=== PATIENT | female | born 1965 | race Caucasian/White ===

== ENCOUNTER 2020-02-06 11:08 | Outpatient (CLI) | payer BC, SELFPAY ==
--- NOTE | ~2020-02-06 | XR_ITS ---
XR lumbar spine min 4V 02/06/2020 11:41 Indication: Low back pain and radiculopathy Procedure: 5 views of the lumbar spine Comparison: No prior studies for comparison. Findings: There is disc narrowing at all lumbar levels, most advanced at L5-S1. There are ventral ost eophytes at multiple levels. There is mild facet hypertrophy at L2-3 through L5-S1. No evidence for s pondylolisthesis. There is a calcification lateral to L4 measuring or millimeters. Cannot exclude ure teral stone. Impression: 1: Mild lumbar spondylosis. 2: Possible left ureteral stone. Correlate clinically. Reviewed, dictated and finalized at location A. Impression: 1: Mild lumbar spondylosis. 2: Possible left ureteral stone. Correlate clinically.
== END 2020-02-06 11:09 | disposition home or self-care (01) ==
LOC: ANHIMG 11:15
PROVIDERS: PCP Family Medicine; Visit Provider Physician Assistant
DX: M47.26 Other spondylosis with radiculopathy, lumbar region (principal)
CPT/HCPCS: 72110

== ENCOUNTER 2020-02-20 19:54 | Emergency (ER) | payer BC, SELFPAY ==
[2020-02-20 19:57] VITALS: BP 151/91; PULSE 82; RESP 20; TEMP 36.8; O2SAT 97
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
[2020-02-20 21:35] VITALS: BP 124/60; PULSE 80; RESP 20; TEMP 36.7; O2SAT 98
== END 2020-02-20 21:36 | disposition home or self-care (01) ==
PROVIDERS: Emergency Provider Emergency Medicine; PCP Family Medicine
DX: S61.011A Laceration without foreign body of right thumb without damage to nail, initial encounter (principal); X99.1XXA Assault by knife, initial encounter
CPT/HCPCS: 12001; 99282

== ENCOUNTER → 2020-08-01 15:00 | Outpatient (CLI) | payer BC, SELFPAY ==
--- NOTE | ~2020-08-01 | MM_ITS ---
EXAMINATION: MM screening [facility] BI w patrick HISTORY: Screening mammogram TECHNIQUE: Craniocaudal and mediolateral oblique 3-D tomosynthesis images were obtained and synthetic 2-D images were generated. CAD analysis was submitted and interpreted. COMPARISON: 01/19/2019, 12/29/2017, 06/30/2011 BREAST PARENCHYMAL COMPOSITION: There are scattered areas of fibroglandular density. FINDINGS: There is no evidence of suspicious mass, calcification, or architectural distortion to sugg est malignancy in either breast. There has been no suspicious interval change. IMPRESSION: 1. No mammographic evidence of malignancy. 2. Recommend routine screening mammography in one year. BI-RADS Category 1: Negative Reviewed, dictated and finalized at location A. ER CARE THERAPIST
== END ==
PROVIDERS: PCP Family Medicine; Visit Provider Nurse Practitioner Obstetrics & Gynecology
DX: Z12.31 Encounter for screening mammogram for malignant neoplasm of breast (principal)
CPT/HCPCS: 77063; 77067

== ENCOUNTER → 2021-05-22 02:36 | Outpatient (CLI) | payer BC, SELFPAY ==
[2021-05-22 18:57] LABS: SARS-CoV-2 RNA PCR Negative
== END ==
PROVIDERS: PCP Family Medicine; Visit Provider Family Medicine
DX: R05 Cough (principal); R51.9 Headache, unspecified; R68.83 Chills (without fever); Z20.822 Contact with and (suspected) exposure to COVID-19
CPT/HCPCS: C9803; U0003; U0005

== ENCOUNTER 2021-08-14 17:28 | Emergency (ER) | payer BC, SELFPAY ==
[2021-08-14 17:33] VITALS: BP 122/73; PULSE 106; RESP 18; TEMP 38.2; O2SAT 95
[2021-08-14 21:49] VITALS: BP 122/73; PULSE 89; O2SAT 98
--- NOTE | 2021-08-14 22:56 | ED.NAVMDI ---
HPI - Nausea/Vomiting/Diarrhea General Chief complaint: Nausea/Vomiting/Diarrhea Stated complaint: Vomiting Time Seen by Provider: 08/14/21 22:44 Source: patient History of Present Illness HPI Narrative: Patient presents with couple months of nausea and vomiting. Reports her symptoms are intermittent and are triggered by stress certain foul smells or foul tasting food. Today at work she had an episode of emesis and was instructed to be evaluated by work as she might be contagious and work did not want her to return until she was cleared by physician. Patient has an appointment next week with her primary care doctor to be evaluated. She is not been evaluated for this prior to today. Right now she denies any symptoms. Her symptoms not associated with abdominal pain. She denies any diarrhea. She denies any fevers, cough, congestion Related Data Home Medications Medication Instructions Recorded Confirmed estradiol 1 mg tablet 1 mg PO DAILY 07/17/19 02/02/21 acetaminophen 325 mg tablet 325 mg PO Q6H PRN 01/23/20 02/02/21 Allergies Allergy/AdvReac Type Severity Reaction Status Date / Time No Known Allergies Allergy Verified 08/14/21 23:26 Review of Systems Review of Systems: CONSTITUTIONAL: Denies fever, chills, or sweats. EYES: Denies visual changes, redness, or discharge. ENT: Denies rhinorrhea, congestion, sore throat, or otalgia. CARDIOVASCULAR: Denies chest pain, palpitations, or edema. RESPIRATORY: Denies cough or dyspnea. GASTROINTESTINAL: Denies abdominal pain, or diarrhea. GENITOURINARY: Denies dysuria or hematuria. SKIN: Denies rash or itching. MUSCULOSKELETAL: Denies back pain, joint pain, or myalgia. NEUROLOGIC: Denies headache, numbness, dizziness, or weakness. PSYCHIATRIC: Denies anxiety or depression. All systems reviewed & are unremarkable except as noted in HPI and below PMFSH Past Medical History Medical History Bladder prolapse 2004 Surgical History Surgical History H/O: hysterectomy Total 2001 History of bladder surgery History of tonsillectomy Social History Social History Smoking status: Never smoker Alcohol intake: current Gender identity (if verbalized by the patient): Female Exam Narrative: GENERAL: Well-appearing, well-nourished, and in no acute distress. HEAD: Normocephalic, atraumatic. EYES: PERRLA and EOMI. ENT: Nares clear, no rhinorrhea or epistaxis. Mucous membranes moist. NECK: Supple. No masses. No JVD ABDOMEN: Soft, nontender, nondistended, normal active bowel sounds. EXTREMITIES: Normal range of motion. No edema. SKIN: Warm, dry, no rash. NEURO: No focal deficits. Alert and oriented x3. PSYCH: Normal mood and affect. Course Vital Signs Vital signs: Vital Signs Temperature 38.2 C H 08/14/21 17:33 Pulse Rate 106 H 08/14/21 17:33 Respiratory Rate 18 08/14/21 17:33 Blood Pressure 122/73 08/14/21 17:33 Pulse Oximetry 95 08/14/21 17:33 Temperature 38.2 C H 08/14/21 17:33 Pulse Rate 92 08/14/21 23:24 Respiratory Rate 16 08/14/21 23:24 Blood Pressure 129/74 08/14/21 23:24 Pulse Oximetry 99 08/14/21 23:24 MDM - Nausea/Vomiting/Diarrhea MDM Narrative Medical decision making narrative: H&P as above, vss, pt looks clinically well, exam with nonacute abdomen, labs/img considered and offered to the patient however given symptoms are triggered by foul-smelling tasting food labs and imaging are likely to have any clinical impact at this time. Symptomatic relief available as needed, however patient was asymptomatic while in the ER, Suspect patient has food aversions, dns cholecystitis, pancreatitis, bowel obstruction, appendicitis, severe dehydration, severe sepsis. plan to tx/monitor as op w/ pcm f/u findings/plan discussed with pt, pt agree/comfortable with plan, return
[2021-08-14 23:24] VITALS: BP 129/74; PULSE 92; RESP 16; O2SAT 99
== END 2021-08-14 23:29 | disposition home or self-care (01) ==
PROVIDERS: Emergency Provider Emergency Medicine; PCP Family Medicine
DX: R11.2 Nausea with vomiting, unspecified (principal); Z90.710 Acquired absence of both cervix and uterus; Z90.89 Acquired absence of other organs
CPT/HCPCS: 99283

== ENCOUNTER → 2021-09-25 12:44 | Outpatient (CLI) | payer BC, SELFPAY ==
--- NOTE | ~2021-09-25 | MM_ITS ---
EXAMINATION: MM screening [facility] BI w patrick HISTORY: Screening TECHNIQUE: Craniocaudal and mediolateral oblique 3-D tomosynthesis images were obtained and synthetic 2-D images were generated. CAD analysis was submitted and interpreted. COMPARISON: Comparison to multiple prior studies sequentially, with oldest reviewed study dated 12/29. BREAST PARENCHYMAL COMPOSITION: There are scattered areas of fibroglandular density. FINDINGS: There is no evidence of suspicious mass, calcification, or architectural distortion to sugg est malignancy in either breast. There has been no suspicious interval change. IMPRESSION: 1. No mammographic evidence of malignancy. 2. Recommend routine screening mammography in one year. BI-RADS Category 1: Negative Reviewed, dictated and finalized at location A. [facility]
== END ==
PROVIDERS: PCP Family Medicine; Visit Provider Family Medicine
DX: Z12.31 Encounter for screening mammogram for malignant neoplasm of breast (principal)
CPT/HCPCS: 77063; 77067

== ENCOUNTER 2022-12-22 18:13 | Outpatient (NON) | payer BC, SELFPAY | END 2022-12-22 18:14 | disposition home or self-care (01) | LOC: ANHLAB 18:15 | PROVIDERS: PCP Family Medicine; Visit Provider Nurse Practitioner | DX: R39.9 Unspecified symptoms and signs involving the genitourinary system (principal) | CPT/HCPCS: 87077; 87086; 87186 ==

== ENCOUNTER 2022-12-30 06:50 | Inpatient (IN) | payer BC, SELFPAY ==
[2022-12-30] VITALS (27 sets, daily range): BP systolic 89–147; BP diastolic 52–99; PULSE 54–88; RESP 12–18; TEMP 36.2–37; O2SAT 95–100; BMI 29.9
--- NOTE | ~2022-12-30 | XR_ITS ---
EXAMINATION: XR stent kub - surgery DATE: 12/30/2022 13:01 INDICATION: Internal ureteral stent placement. Possible stones. TECHNIQUE: Fluoroscopic images from a bilateral internal ureteral stent placement are submitted for zak fox. 43.6 of fluoroscopy time. FINDINGS: There are bilateral double-J internal ureteral stent projecting in expected position, with proximal C ope loop at the level of the renal pelvis and distal loops are not included on the post deployment im age.. IMPRESSION: 1. Bilateral internal ureteral stent placement. Please refer to real-time procedural findings for d etagardenia. Reviewed, dictated and finalized at location A. IMPRESSION: 1. Bilateral internal ureteral stent placement. Please refer to real-time pro cedural findings for details.
--- NOTE | ~2022-12-30 | XR_ITS ---
XR abdomen/kub 1V 12/31/2022 09:13 Indication: Surgical planning. Renal stones. Procedure: KUB Comparison: CT dated 12/31/2019 Findings: There are bilateral internal ureteral stents in expected position. There is a stone in the right renal pelvis. There are multiple distal left ureteral stones. No acute osseous abnormality. Non obstructive bowel gas pattern. There is osteoarthritis of the hips. Impression: 1: Right nephrolithiasis. 2: Multiple distal left ureteral stones. Reviewed, dictated and finalized at location A. Impression: 1: Right nephrolithiasis. 2: Multiple distal left ureteral stones.
--- NOTE | ~2022-12-30 | CT_ITS ---
CT of the Abdomen and Pelvis: Indication: Abdominal pain Technique: 2.5 mm axial scans were obtained through the abdomen and pelvis following intravenous adm inistration of 100 cc of Omnipaque 350. Dose reduction technique was used on this scan by utilizing a utomated exposure control and iterative reconstruction technique. The dose-length product (DLP) was 4 55.14 mGy-cm. Findings: Scans through the lung bases are unremarkable. There is a 1.5 x 0.8 cm stone in the distal left ureter, resulting in moderate to severe left hydrour eteronephrosis. There is a 1.2 x 0.8 cm stone at the right renal pelvis without definite jose hydron ephrosis. The liver, spleen, pancreas, gallbladder, and adrenal glands are within normal limits. No evidence o f aortic aneurysm. No lymphadenopathy. There is wall thickening and pericolic inflammatory change at the distal sigmoid colon. There is an a ssociated 4.1 x 3.4 cm collection with air-fluid level (axial image 153), consistent with abscess, po ssibly intramural abscess. No free air evident otherwise. No bowel obstruction. Images through the pelvis were performed. Urinary bladder unremarkable. Patient is post hysterectomy. Impression: Acute sigmoid diverticulitis with 4.1 x 3.4 cm abscess adjacent to the distal sigmoid colon. 1.5 x 0.8 cm distal left ureteral stone with moderate to severe left hydroureteronephrosis. 1.2 x 0.8 cm stone at the right renal pelvis, without definite hydronephrosis. Reviewed, dictated and finalized at [facility]. Impression: Acute sigmoid diverticulitis with 4.1 x 3.4 cm abscess adjacent to the distal s igmoid colon. 1.5 x 0.8 cm distal left ureteral stone with moderate to severe left hydrourete ronephrosis. 1.2 x 0.8 cm stone at the right renal pelvis, without definite hydronephrosis.
[2022-12-30 07:19] LABS: Basophils Absolute Auto 0.1 K/mm3 (0.0-0.1); Basophils Percent Auto 0.5 % (0.2-1.2); Eosinophils Absolute Auto 0.2 K/mm3 (0-0.3); Eosinophils Percent Auto 1.8 % (0-4.4); Hematocrit 43.9 % (37.0-47.0); Hemoglobin 14.3 g/dL (12.0-15.0); Immature Granulocyte Absolute 0.03 K/mm3 (0.00-0.031); Immature Granulocyte Percent A 0.3 % (0-0.5); Lymphocytes Absolute Auto 1.33 K/mm3 (0.9-3.2); Lymphocytes Percent Auto 11.8 % (18.3-44.2); Mean Corpuscular HGB Conc 32.6 g/dl (32-36); Mean Corpuscular Hemoglobin 27.4 pg (26-34); Mean Corpuscular Volume 84.3 fl (80-100); Mean Platelet Volume 9.3 fl (7.4-10.4); Monocytes Absolute Auto 1.1 K/mm3 (0.1-0.6); Monocytes Percent Auto 9.9 % (2.6-8.5); Neutrophils Absolute Auto 8.6 K/mm3 (1.3-6.7); Neutrophils Percent Auto 75.7 % (45.5-73.1); Platelet Count Result 428 k/mm3 (150-375); Red Blood Count 5.21 M/mm3 (4.2-5.4); Red Cell Distribution Width 12.9 % (11.5-14.5); White Blood Count 11.3 K/mm3 (4.5-10.0)
[2022-12-30 07:29] LABS: Alanine Aminotransferase 214 U/L (6-35); Albumin Level 4.5 g/dL (3.5-5.1); Alkaline Phosphatase 167 U/L (38-126); Anion Gap 4 mmol/L (8-16); Aspartate Amino Transferase 149 U/L (14-36); Bilirubin,Total 0.8 mg/dL (0.2-1.3); Blood Urea Nitrogen 14 mg/dL (7-17); Calcium 10.9 mg/dL (8.4-10.2); Carbon Dioxide 29 mmol/L (22-30); Chloride 104 mmol/L (98-107); Estimated CRCL calculation 59 ml/min; Estimated Glomerular Filt Rate > 60; Glucose 114 mg/dL (65-110); Lipase 146 U/L (23-300); Potassium 4.5 mmol/L (3.4-5.0); Sodium 137 mmol/L (137-145)
[2022-12-30] MEDS: ONDANSETRON INJ 4 MG/2 ML VIAL IV PUSH (08:06)
[2022-12-30] MEDS: MORPHINE SULFATE (*CRX) 4 MG/ML INJ IV PUSH (08:06)
[2022-12-30] MEDS: SODIUM CHLORIDE 0.9% IV 1,000 ML 999 ML IV CONT (08:06)
[2022-12-30 09:07] LABS: Appearance Urine Cloudy (Clear); Bacteria Urine None Seen /hpf; Bilirubin Urine Negative (Negative); Blood Urine 3+ (Negative); Color Urine Yellow (Yellow); Glucose Urine UA Negative (Negative); Ketones Urine 1+ mg/dL (Negative); Leukocyte Esterase Ur 2+ LEU/UL (Negative); Need Manual Microscopic Reviewed; Nitrate Urine Negative (Negative); Non Pathogenic Casts 0-2; Protein Urine 1+ mg/dL (Negative); RBC Urine >100 /hpf (0-2); Specific Grav Ur 1.053 (1.001-1.035); Squamous Epithelial Cell Urine Occasional /hpf (Few); Urobilinogen Urine 0.2 mg/dL (<2.0); WBC Urine >100 /hpf
--- NOTE | 2022-12-30 09:07 | ED.ABDPAIN ---
HPI - Abdominal Pain General Chief Complaint: Abdominal Pain Stated Complaint: abd pain/kidney infection Time Seen by Provider: 12/30/22 07:01 History of Present Illness HPI narrative: Patient is a 57-year-old female who presents ER with concerns for UTI. Was diagnosed with UTI 1 week ago when she has burning urination frequent urination. She was started on Macrobid but symptoms persisted. PCP added on Augmentin a couple days ago. Patient is still having lower abdominal pain and urinary frequency. She is also developed some diarrhea. Tenderness worse with movement. No fevers or chills or sweats. No chest pain or chest pressure. No history of kidney stone. Related Data Allergies Allergy/AdvReac Type Severity Reaction Status Date / Time No Known Allergies Allergy Verified 12/30/22 11:36 Review of Systems Review of Systems: All systems reviewed & are unremarkable except as noted in HPI and below Constitutional: Constitutional: Denies chills, Reports fatigue and Denies fever(s) Cardiovascular: Cardiovascular: Denies chest pain, Denies rapid heart rate and Denies radiating jaw, neck or arm pain Respiratory: Respiratory: Denies chest congestion, Denies cough and Denies dyspnea Gastrointestinal: Gastrointestinal: Reports abdominal pain, Reports diarrhea, Reports nausea and Reports vomiting Genitourinary: Genitourinary: Reports nocturia and Reports dysuria PMFSH Past Medical History Medical History Bladder prolapse 2005 COVID-19 (~04/2020) Hepatitis C antibody test negative (12/06/07) Surgical History Surgical History H/O: hysterectomy ANDREEA-BSO 2001 History of bladder surgery History of tonsillectomy Family History Family History Father Kidney stones Social History Social History Smoking status: Never smoker Alcohol intake: current Drinks per week: 1 Substance use: never Lack of Transportation: No Lack of Food: Never True Current Housing: I Have Housing Concerned About Future Housing: No Difficulty Paying Gas/Electric Bills: No Difficulty Paying for Meds: No Currently Unemployed: No Education: High School Diploma/GED Difficulty w/ Childcare or Family Care: No Gender identity (if verbalized by the patient): Female Spiritual care concerns: No Exam Narrative: GENERAL: Uncomfortable-appearing, well-nourished, and in no acute distress. HEAD: Normocephalic, atraumatic. EYES: PERRL and EOMI. ENT: Mucous membranes moist. CHEST: Clear to auscultation. No respiratory distress. HEART: Regular rate and rhythm. Normal peripheral pulses. ABDOMEN: Soft, tender to palpation left lower quadrant with guarding, nondistended, normal active bowel sounds. EXTREMITIES: Normal range of motion. No edema. SKIN: Warm, dry, no rash. NEURO: Alert and oriented x3. PSYCH: Normal mood and affect. Course Course Emergency Course: Patient informed of results. Both urology and and general surgery have been consulted. Patient will have to go to the OR for stent. Patient is aware of treatment plan. She is more comfortable at this time. She will be started on IV Zosyn. Vital Signs Vital signs: Vital Signs Temperature 98.4 F 12/30/22 06:58 Pulse Rate 88 12/30/22 06:58 Respiratory Rate 14 12/30/22 06:58 Blood Pressure 145/99 H 12/30/22 06:58 Pulse Oximetry 95 12/30/22 06:58 Oxygen Delivery Room Air 12/30/22 06:58 Temperature 97.9 F 12/30/22 16:00 Pulse Rate 59 L 12/30/22 16:00 Respiratory Rate 16 12/30/22 16:00 Blood Pressure 140/68 12/30/22 16:00 Pulse Oximetry 100 12/30/22 16:00 Oxygen Delivery Room Air 12/30/22 15:00 Oxygen Flow Rate 6 12/30/22 13:25 MDM - Abdominal Pain Lab Data 12/30/22 07:03 12/12
[2022-12-30 09:08] LABS: Add Urine Microscopic? YES
[2022-12-30] MEDS: PIPERACILLN/TAZ 3.375GM/NS50ML 3.375 GM/50 ML BAG IVPB ×3 (09:14→20:52)
--- NOTE | 2022-12-30 10:34 | WPDURCON ---
Assessment and Plan Assessment and plan (1) Left ureteral stone: Code(s): N20.1 - Calculus of ureter Status: Acute Assessment and Plan: Obtain Consent: Cystoscopy, bilateral ureteral stent placement, bilateral retrograde pyelogram. Keep NPO. Plan to go to the OR today with Dr. Gutierrez. Once infection has resolved, she will need a Cystoscopy left ureteroscopy with stone extraction, stent exchange left, left retrograde pyelogram, possible holmium laser, right ESWL, which we will plan in a few weeks. (2) Right renal stone: Code(s): N20.0 - Calculus of kidney Status: Acute Assessment and Plan: Will plan to get a KUB s/p stent placement today to ensure stone is visible for presumed ESWL. (3) UTI (urinary tract infection): Code(s): N39.0 - Urinary tract infection, site not specified Status: Acute Assessment and Plan: Continue Zosyn, tailor antibiotics to repeat culture results. Urology Consult Note HPI Date Seen: 12/30/22 Time Seen: 11:59 Requesting Physician: Porter Gutierrez MD Primary Care Provider: Shari Stein DO Consult Narrative Reason for consult: Bilateral Stones, UTI Narrative: Ignacia Núñez is a 57 year old female who presented to the ER for worsening flank and abdominal pain that was accompanied by nausea and vomiting. She states she was treated for a UTI growing E-Coli on the culture from 12/22/22 by her PCP a week ago but her infection wouldn't resolve. She also c/o dysuria, frequency, urgency to urinate and hematuria. Her UA is suggestive of a UTI, urine culture is pending, however she is currently on culture sensitive Zosyn from 12/22/22. She had a CT scan in the ER today showing Acute sigmoid diverticulitis with 4.1 x 3.4 cm abscess adjacent to the distal sigmoid colon, a 1.5 x 0.8 cm distal left ureteral stone with moderate to severe left hydroureteronephrosis, and a 1.2 x 0.8 cm stone at the right renal pelvis, without definite hydronephrosis. She states she doesn't have a previous history of kidney stones. She has a WBC of 11.3, is afebrile and has a creatinine of 0.90. Review of Systems Cardiovascular: Cardiovascular: Denies chest pain Respiratory: Respiratory: Reports no additional respiratory complaints Gastrointestinal: Gastrointestinal: Reports abdominal pain, Reports nausea and Reports vomiting Genitourinary: Genitourinary: Reports hematuria, Reports nocturia, Reports dysuria, Denies pelvic pain, Reports flank pain, Denies urinary incontinence and Reports urinary urgency PMFSH Past Medical History Medical History Bladder prolapse 2005 COVID-19 (~04/2020) Hepatitis C antibody test negative (12/06/07) Surgical History Surgical History H/O: hysterectomy ANDREEA-BSO 2001 History of bladder surgery History of tonsillectomy Family History Family History Father Kidney stones Social History Social History Smoking status: Unknown if ever smoked Alcohol intake: current Lack of Transportation: No Lack of Food: Never True Current Housing: I Have Housing Concerned About Future Housing: No Difficulty Paying Gas/Electric Bills: No Difficulty Paying for Meds: No Currently Unemployed: No Education: High School Diploma/GED Difficulty w/ Childcare or Family Care: No Gender identity (if verbalized by the patient): Female Meds Home Medications and Allergies Home Medications Medication Instructions Recorded Confirmed Type tramadol 50 mg tablet 50 mg PO Q8H PRN pain #12 tabs 12/16/22 12/22/22 Rx amoxicillin 500 mg-potassium 1 tablet PO Q12H #14 tabs 12/27/22 Rx clavulanate 125 mg tablet Allergies Allergy/AdvReac Type Severity Reaction Status Date / Time No Known Aller
--- NOTE | 2022-12-30 10:39 | PM.CNGS ---
Assessment and Plan Assessment and plan (1) Diverticulitis of intestine with abscess: Code(s): K57.80 - Diverticulitis of intestine, part unspecified, with perforation and abscess without bleeding Status: Acute Assessment and Plan: Patient with acute sigmoid diverticulitis with a 4.1 x 3.4 cm abscess, CT suggesting possibly intramural. Discussed CT findings and pathophysiology of the disease process with the patient. This is her first episode of diverticulitis. We would recommend to continue with conservative management at this time. Agree with IV Zosyn. Continue bowel rest, IV fluids, and analgesics as needed. Discussed with the patient that typically this improves with IV antibiotics, but if she worsens with conservative treatment, then she could require surgery. We try to avoid this in the acute phase as it comes with higher risks of a colostomy. Will continue to follow with labs and serial abdominal exams. (2) Left ureteral stone: Code(s): N20.1 - Calculus of ureter Status: Acute Assessment and Plan: Urology consulted and planning cystoscopy with bilateral ureteral stent placement today. (3) Right renal stone: Code(s): N20.0 - Calculus of kidney Status: Acute (4) UTI (urinary tract infection): Code(s): N39.0 - Urinary tract infection, site not specified Status: Acute Plan I have discussed the patient's case and plan of care with Dr. Martinez. Thank you for allowing us to see the patient in consultation and we will continue to follow along with you. History of Present Illness Consult details Consult date: 12/30/22 Reason for consult: other (Acute diverticulitis with abscess) Requesting physician: Reese Dickey MD Narrative: This is a 57-year-old woman who we have been asked to see by the ED physician for acute sigmoid diverticulitis with abscess. She reports over the past few weeks she has been dealing with right sciatic pain and following with her PCP. As this has been improving, about a week ago she developed left flank pain that was different than her sciatic pain. She then developed urinary frequency and hematuria. She saw her PCP on 12/22/2022 for these symptoms. They started her on Macrobid and got a urinalysis with culture. Her urine culture grew E coli. Symptoms were not improving with the Macrobid, so they added Augmentin a few days ago. She completed the Macrobid yesterday. Over the past few days, she developed left lower quadrant abdominal pain. Her urinary frequency and hematuria resolved, but she continued to have left flank pain. She has had a poor appetite for the past week. She denies fever or chills. Yesterday she developed nausea and vomiting. She has been dry heaving through the night. She also developed diarrhea over the past 24 hours. Her left lower quadrant abdominal pain progressively became more severe over the past few days and she ultimately decided come into the ER today for evaluation. [place] [id number] with mildly elevated LFTs. CT scan the abdomen pelvis showed acute sigmoid diverticulitis with 4.1 x 3.4 cm abscess adjacent to the distal sigmoid colon, possibly intramural, a 1.5 x 0.8 cm distal left ureteral stone with moderate to severe left hydroureteronephrosis, and 1.2 x 0.8 cm stone at the right renal pelvis without definite hydronephrosis. She is now seen in the ER. She is still having some left flank pain that is mild, but most of her pain is in the LLQ. She denies any nausea at this time. She denies a history of kidney stones or diverticulitis. She reportedly had a colonoscopy with benign polypectomy a few years ago, but within the last 5 years. Review of Systems Review of Systems: All systems reviewed & are unremarkable except as noted in HPI and below Constitutional: Constitutional: Reports no additional constitutional complaints, Denies chills, Denies fatigue, Denies fever(s) and Reports poor appetite (for t
--- NOTE | 2022-12-30 10:55 | WPDANESEPPF ---
Anes - Initial Pre Proc Eval Procedure: Operation Date: 12/30/22 12:30 Proposed Procedures p Cystoscopy, Bilateral Retrograde Pyelogram, Bilateral Stent Placement - Porter Gutierrez MD Date/Time: 12/30/22 10:55 Surgeon: Porter Gutierrez MD Pre Op Diagnosis: abd pain/kidney infection Patient Data Age: 57 Gender: F Height: 1.6 m Weight: 77.1 kg Last Vital Signs Temp 36.9 C 12/30/22 06:58 Pulse 71 12/30/22 10:01 Resp 12 12/30/22 10:01 BP 130/98 H 12/30/22 10:01 Pulse Ox 98 12/30/22 10:01 O2 Del Method Room Air 12/30/22 06:58 Allergies Allergy/AdvReac Type Severity Reaction Status Date / Time No Known Allergies Allergy Verified 12/30/22 07:11 Home Medications Medication Instructions Recorded Confirmed Type tramadol 50 mg tablet 50 mg PO Q8H PRN pain #12 tabs 12/16/22 12/22/22 Rx amoxicillin 500 mg-potassium 1 tablet PO Q12H #14 tabs 12/27/22 Rx clavulanate 125 mg tablet Laboratory Tests 12/30/22 12/30/22 12/30/22 07:03 07:03 08:42 WBC 11.3 K/mm3 H K/mm3 (4.5-10.0) RBC 5.21 M/mm3 M/mm3 (4.2-5.4) Hgb 14.3 g/dL g/dL (12.0-15.0) Hct 43.9 % % (37.0-47.0) MCV 84.3 fl fl (80-100) MCH 27.4 pg pg (26-34) MCHC 32.6 g/dl g/dl (32-36) RDW 12.9 % % (11.5-14.5) Plt Count 428 k/mm3 H k/mm3 (150-375) MPV 9.3 fl fl (7.4-10.4) Immature Gran % (Auto) 0.3 % % (0-0.5) Neut % (Auto) 75.7 % H % (45.5-73.1) Lymph % (Auto) 11.8 % L % (18.3-44.2) [place] % (Auto) 9.9 % H % (2.6-8.5) Eos % (Auto) 1.8 % % (0-4.4) Baso % (Auto) 0.5 % % (0.2-1.2) Lymph # (Auto) 1.33 K/mm3 K/mm3 (0.9-3.2) [place] # (Auto) 1.1 K/mm3 H K/mm3 (0.1-0.6) Eos # (Auto) 0.2 K/mm3 K/mm3 (0-0.3) Baso # (Auto) 0.1 K/mm3 K/mm3 (0.0-0.1) Abs Immat Gran (auto) 0.03 K/mm3 K/mm3 (0.00-0.031) Absolute Neuts (auto) 8.6 K/mm3 H K/mm3 (1.3-6.7) Absolute Nucleated RBC 0.0 K/mm3 K/mm3 (0.0-0.012) Nucleated RBC % 0.0 % % (0.0-0.2) Sodium 137 mmol/L mmol/L (137-145) Potassium 4.5 mmol/L mmol/L (3.4-5.0) Chloride 104 mmol/L mmol/L (98-107) Carbon Dioxide 29 mmol/L mmol/L (22-30) Anion Gap 4 mmol/L L mmol/L (8-16) BUN 14 mg/dL mg/dL (7-17) Creatinine 0.90 mg/dL mg/dL (0.7-1.0) Estim Creat Clear Calc 59 ml/min ml/min Estimated GFR > 60 (59 - ) Glucose 114 mg/dL H mg/dL (65-110) Calcium 10.9 mg/dL H mg/dL (8.4-10.2) Total Bilirubin 0.8 mg/dL mg/dL (0.2-1.3) AST 149 U/L H U/L (14-36) ALT 214 U/L H U/L (6-35) Alkaline Phosphatase 167 U/L H U/L (38-126) Total Protein 8.0 g/dL g/dL (6.3-8.2) Albumin 4.5 g/dL g/dL (3.5-5.1) Lipase 146 U/L U/L (23-300) Urine Color Yellow (Yellow) Urine Appearance Cloudy H (Clear) Urine pH 6.0 (5.0-9.0) Ur Specific [place] 1.053 H (1.001-1.035) Urine Protein 1+ mg/dL H mg/dL (Negative) Urine Glucose (UA) Negative mg/dL mg/dL (Negative) Urine Ketones 1+ mg/dL H mg/dL (Negative) Ur Blood (Man) 3+ H (Negative) Urine Nitrate Negative (Negative) Urine Bilirubin Negative (Negative) Urine Urobilinogen 0.2 mg/dL mg/dL (<2.0) Add Ur Microanalysis Reviewed Leukocyte Esterase Rfl 2+ VICTORINO/UL H VICTORINO/UL (Negative) Urine RBC >100 /hpf H /hpf (0-2) Urine WBC >100 /hpf H /hpf Ur Squamous Epith Cells Occasional /hpf /hpf (Few) Urine Bacteria None seen /hpf /hpf Urine Casts 0-2 Patient hx anesthesia problems: none
--- NOTE | 2022-12-30 12:24 | WPDHPUPDATE1 ---
History and Physical Update Update Date/Time: 12/30/22 12:24 History and Physical has been reviewed, including an updated exam of the patient. There are NO changes in the patient's condition. Risks, benefits, and alternatives have been discussed and questions answered. Patient agrees to proceed with procedure.
[2022-12-30] MEDS: LIDOCAINE HCL 2% GEL UROJET 10 ML PKG MUCOUS MEM (12:48)
--- NOTE | 2022-12-30 12:54 | W.PM.PROC2 ---
Procedure Note - Detailed Date of Procedure 12/30/22 Pre-op Diagnosis abd pain/kidney infection bilateral ureterolithiasis Post-op Diagnosis Same Procedure Performed Cystoscopy with bilateral ureteral stent placements 6 [place] contour left side and 4.8 [place] contour on the right Surgeon Porter Gutierrez MD Anesthesia General Description of Procedure Patient is taken to the operative suite correctly identified. Once anesthesia was obtained she was placed in dorsal lithotomy position prepped draped usual sterile fashion. Twenty-two [place] scope was inserted the bladder. There were no tumors noted. Left ureteral orifice was cannulated with a guidewire. Six [place] contour stent was then placed with the proximal end coiled in the renal pelvis and the distal in the bladder. A similar procedure was then done on the right side with a 4.8 [place] contour stent placed. 2% viscous lidocaine was inserted urethra patient is taken recovery stable condition. Plan is to allow her to get over her diverticulitis and urinary tract infection. Will then plan on a ureteroscopy with stone extraction holmium laser on the left side and then a follow-up lithotripsy on the right at a later point time. Please send a copy of op note to my office Estimated Blood Loss 0 Drains Yes Packing No Pathology None sent Complications No immediate complications Condition Stable Disposition PACU
[2022-12-30] MEDS: LACTATED RINGERS 1,000 ML 30 ML IV CONT (12:57)
--- NOTE | 2022-12-30 14:30 | ADMGEN ---
This patient, Ignacia Núñez, was admitted to IMU Room 209-01. Patient/family oriented to hospital policies and general routines including ID bracelet, bed and alarms, visiting hours, pain management, procedures, bathroom and other care routines, personal items, smoking policy, room service/diet, and visiting hours. Information on how to activate the Rapid Response Team has been discussed. Patient/Family are encouraged to report perceived risks to care and to ask questions if they do not understand what they are told or what they should do.
[2022-12-30] MEDS: SODIUM CHLORIDE 0.9% IV 1,000 ML 125 ML IV CONT ×2 (14:45→23:56)
--- NOTE | 2022-12-30 14:50 | PM.IMHP ---
H&P: HPI History of Present Illness Date/Time: 12/30/22 14:50 Chief Complaint: Abdominal pain Narrative: This is a 57 year old female patient who has had no prior history of having kidney stones. The patient presented to the emergency room with concerns for UTI. She was diagnosed with a urinary tract infection approximately 1 week ago when she had burning urination and frequency as well. The patient had been started on Macrobid but her symptoms persisted. Her primary care doctor added Augmentin a couple days ago. The patient was still having lower abdominal pain and urinary frequency. She also developed some diarrhea. She had more tenderness that was worse with movement. She denied any fever chills. No chest pain or chest pressure. Her white count was found to be 11.3. Calcium level was 10.9. AST is 149, ALT 214, alkaline phosphatase 167. Her urine was cloudy and had 3+ blood. Leuko site esterase was 2+ and wbc's were greater than 100. Abdominal pelvis CT was read as the following acute sigmoid diverticulitis with 4.1 x 3.4 cm abscess adjacent to the distal sigmoid colon. 1.5 x 0.8 cm distal left ureteral stone with moderate to severe left hydroureteronephrosis. 1.2 x 0.8 cm stone at the right renal pelvis, without definite hydronephrosis. The patient was started on Zosyn and surgery had been consulted as well as Urology. The patient was taken to surgery and to bilateral ureteral stents were placed. Uterine stent x-ray was read as Bilateral internal ureteral stent placement.? Please refer to real-time procedural findings for details. The patient is being admitted to observation status on the date of service of 12/30/2022. Review of Systems Review of Systems: All systems reviewed & are unremarkable except as noted in HPI and below Constitutional: Constitutional: Reports as per HPI and Reports no additional constitutional complaints Eyes: Eyes: Reports as per HPI and Reports no additional eye complaints ENT: Reports system reviewed and no additional complaints, except as documented and Reports Normal hearing present Cardiovascular: Cardiovascular: Reports no additional cardiovascular complaints Respiratory: Respiratory: Reports no additional respiratory complaints and Reports no additional respiratory complaints Gastrointestinal: Gastrointestinal: Reports as per HPI and Reports no additional gastrointestinal complaints Musculoskeletal: Musculoskeletal: Reports no additional musculoskeletal complaints Integumentary/Breasts: Skin/Breast: Reports system reviewed and no additional complaints, except as docu and Reports as per HPI Neurologic: Reports system reviewed and no additional complaints, except as documented, Reports as per HPI and Reports Normal hearing present Psychiatric: Psychiatric: Reports no additional psychiatric complaints and Reports as per HPI Endocrine: Endocrine: Reports no additional endocrine complaints Hematologic/Lymphatic: Hematologic/Lymphatic: Reports no additional hematologic/lymphatic complaints Allergic/Immunologic: Allergic/Immunologic: Reports no additional allergic/immunologic complaints [facility] Past Medical History Medical History (Updated 12/30/22 @ 19:19 by Emilee Stark NP) Anxiety and depression Bladder prolapse 2004 COVID-19 (~04/2020) Hepatitis C antibody test negative (12/06/07) Surgical History Surgical History (Updated 12/30/22 @ 19:19 by Emilee Stark NP) H/O dilation and curettage H/O: hysterectomy ANDREEA-BSO 2001 History of bilateral tubal ligation History of bladder surgery History of oophorectomy History of tonsillectomy Status post placement of ureteral stent Family History Family History Father Kidney stones Social History Social History (Updated 12/30/22 @ 19:19 by Emilee Stark NP) Social History: 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 She lives with her husban
[2022-12-30] MEDS: FAMOTIDINE 20 MG/2 ML VIAL IV PUSH (20:56)
[2022-12-30] MEDS: MORPHINE SULFATE (*CRX) 2 MG/ML INJ IV PUSH (21:08)
[2022-12-31] VITALS (8 sets, daily range): BP systolic 115–146; BP diastolic 58–102; PULSE 51–88; RESP 16; TEMP 36.2–37.2; O2SAT 98–100
[2022-12-31 05:41] LABS: Hematocrit 39.3 % (37.0-47.0); Hemoglobin 12.6 g/dL (12.0-15.0); Mean Corpuscular HGB Conc 32.1 g/dl (32-36); Mean Corpuscular Hemoglobin 27.6 pg (26-34); Mean Corpuscular Volume 86.2 fl (80-100); Mean Platelet Volume 9.6 fl (7.4-10.4); Platelet Count Result 368 k/mm3 (150-375); Red Blood Count 4.56 M/mm3 (4.2-5.4); Red Cell Distribution Width 12.8 % (11.5-14.5); White Blood Count 13.5 K/mm3 (4.5-10.0)
[2022-12-31 05:51] LABS: Anion Gap 7 mmol/L (8-16); Blood Urea Nitrogen 12 mg/dL (7-17); Calcium 9.9 mg/dL (8.4-10.2); Carbon Dioxide 22 mmol/L (22-30); Chloride 107 mmol/L (98-107); Estimated CRCL calculation 74 ml/min; Estimated Glomerular Filt Rate > 60; Glucose 92 mg/dL (65-110); Potassium 4.1 mmol/L (3.4-5.0); Sodium 136 mmol/L (137-145)
[2022-12-31] MEDS: PIPERACILLN/TAZ 3.375GM/NS50ML 3.375 GM/50 ML BAG IVPB ×4 (05:57→21:26)
[2022-12-31] MEDS: FAMOTIDINE 20 MG/2 ML VIAL IV PUSH ×2 (08:04→21:23)
[2022-12-31] MEDS: MORPHINE SULFATE (*CRX) 2 MG/ML INJ IV PUSH (09:12)
[2022-12-31] MEDS: SODIUM CHLORIDE 0.9% IV 1,000 ML 125 ML IV CONT ×2 (09:13→17:45)
--- NOTE | 2022-12-31 09:27 | PC.NURSE ---
This patient, Ignacia Núñez, was transferred to [[facility] ] on 12/31/22 at 0927. Personal belongings sent with patient. Report given to [Vandana ]. Appropriate documentation sent with patient.
--- NOTE | 2022-12-31 10:16 | PM.PNGS ---
Progress Note: A&P Assessment and Plan (1) Diverticulitis of intestine with abscess: Code(s): K57.80 - Diverticulitis of intestine, part unspecified, with perforation and abscess without bleeding Status: Acute Assessment and Plan: Continues to have left lower quadrant abdominal pain and tenderness. She has never had diverticulitis before this episode. Will continue bowel rest today except for ice chips. Continue IV Zosyn antibiotics and analgesics. Monitor daily labs, history, exam. Hopefully can start some liquids tomorrow. (2) Ureterolithiasis: Code(s): N20.1 - Calculus of ureter Status: Acute (3) Status post placement of ureteral stent: Code(s): Z96.0 - Presence of urogenital implants Status: Acute (4) UTI (urinary tract infection): Code(s): N39.0 - Urinary tract infection, site not specified Status: Acute Assessment and Plan: On Zosyn. Subjective Subjective Date/Time Seen: 12/31/22 10:16 Patient reports: still having pain (Feels better after stents placed but still having left lower quadrant abdominal pain), no flatus, no bowel movement and afebrile Review of Systems Review of Systems: All systems reviewed & are unremarkable except as noted in HPI and below (HPI and those items noted below) Constitutional: Constitutional: Denies chills and Denies fever(s) Cardiovascular: Cardiovascular: Denies chest pain, Denies diaphoresis, Denies dyspnea and Denies paroxysmal nocturnal dyspnea Respiratory: Respiratory: Denies chest congestion, Denies cough and Denies dyspnea Gastrointestinal: Gastrointestinal: Reports as per HPI, Reports abdominal pain, Denies diarrhea, Denies nausea and Denies vomiting Integumentary/Breasts: Skin/Breast: Denies lesions and Denies rash Objective Data Vital Signs Vital Signs: Vital Signs - 24 hr 12/30/22 11:31 12/30/22 12:57 12/30/22 13:12 Temperature 37.0 C 36.4 C L Pulse Rate 74 62 58 L Respiratory Rate 14 14 16 Blood Pressure 113/63 92/54 L 89/59 L Pulse Oximetry 98 99 99 Oxygen Delivery Room Air Simple Face Mask Simple Face Mask Oxygen Flow Rate 8 14 12/30/22 13:25 12/30/22 13:40 12/30/22 13:55 Temperature 36.4 C L Pulse Rate 67 69 67 Respiratory Rate 12 14 13 Blood Pressure 98/68 L 126/72 128/74 Pulse Oximetry 100 98 97 Oxygen Delivery Simple Face Mask Room Air Room Air Oxygen Flow Rate 6 12/30/22 14:30 12/30/22 16:00 12/30/22 15:00 Temperature 36.6 C 36.6 C Pulse Rate 68 64 Respiratory Rate 18 16 Blood Pressure 141/75 H 140/68 Pulse Oximetry 95 100 100 Oxygen Delivery Room Air Oxygen Flow Rate 12/30/22 16:00 12/30/22 18:00 12/30/22 20:00 Temperature 36.2 C L Pulse Rate 59 L 68 69 Respiratory Rate 16 Blood Pressure 147/74 H Pulse Oximetry 96 Oxygen Delivery Oxygen Flow Rate 12/30/22 20:00 12/30/22 23:44 12/31/22 00:00 Temperature 36.4 C Pulse Rate 63 Respiratory Rate 16 Blood Pressure 118/52 L Pulse Oximetry 100 97 100 Oxygen Delivery Room Air Room Air Oxygen Flow Rate 12/31/22 04:00 12/31/22 04:00 12/30/22 20:00 Temperature 36.3 C L Pulse Rate 55 L 66 Respiratory Rate 16 Blood Pressure 137/58 L Pulse Oximetry 99 100 Oxygen Delivery Room Air Oxygen Flow Rate 12/30/22 22:00 12/31/22 00:00 12/31/22 02:00 Temperature Pulse Rate 54 L 53 L 88 Respiratory Rate Blood Pressure Pulse Oximetry Oxygen Delivery Oxygen Flow Rate 12/31/22 04:00 12/31/22 06:00 12/31/22 08:00 Temperature 36.2 C L Pulse Rate 51 L 88 77 Respiratory Rate 16 Blood Pressure 146/102 H Pulse Oximetry 99 Oxygen Delivery Oxygen Flow Rate 12/31/22 08:00 12/31/22 08:00 Temperature Pulse Rate 62 Respiratory Rate Blood Pressure Pulse Oximetry Oxygen Delivery Room Air Oxygen Flow Rate Intake/Output Intake/Output: Intake & Output 12/28/22 12/29/22 12/30/22 12/31/22 23:59 23:59 23:
--- NOTE | 2022-12-31 13:02 | PM.IMPN ---
Progress Note: A&P Assessment and Plan (1) Diverticulitis of intestine with abscess: Code(s): K57.80 - Diverticulitis of intestine, part unspecified, with perforation and abscess without bleeding Status: Acute Assessment and Plan: Appreciate surgical input The patient was placed on Zosyn Abdominal pelvis CT was read as Acute sigmoid diverticulitis with 4.1 x 3.4 cm abscess adjacent to the distal sigmoid colon. 1.5 x 0.8 cm distal left ureteral stone with moderate to severe left hydroureteronephrosis. 1.2 x 0.8 cm stone at the right renal pelvis, without definite hydronephrosis. Continue bowel rest Continue with analgesics Blood cultures are pending (2) Status post placement of ureteral stent: Code(s): Z96.0 - Presence of urogenital implants Status: Acute Assessment and Plan: Appreciate urology input (3) Anxiety and depression: Code(s): F41.9 - Anxiety disorder, unspecified; F32.A - Depression, unspecified Status: Acute Assessment and Plan: [place] (4) Major depressive disorder, recurrent episode, moderate: Code(s): F33.1 - Major depressive disorder, recurrent, moderate Status: Acute Assessment and Plan: Patient is currently not taking any medication at this time. She has a past medical history. (5) GERD (gastroesophageal reflux disease): Qualifiers: Esophagitis presence: esophagitis presence not specified Qualified Code(s): K21.9 - Gastro-esophageal reflux disease without esophagitis Code(s): K21.9 - Gastro-esophageal reflux disease without esophagitis Status: Acute Assessment and Plan: IV Pepcid Subjective Date/time seen: 12/31/22 13:02 No new complaints Exam Const: General: cooperative, healthy appearing, comfortable, no acute distress, well developed, awake, Physically active, average body habitus and well nourished Nutritional Appearance: average body habitus and well nourished Orientation/consciousness: oriented to person, oriented to place, oriented to time and patient oriented x3 Limitations: no limitations HENMT: Head: normal to inspection, No palpable skull fracture present, normocephalic, atraumatic and abrasion Ears: hearing grossly normal bilaterally, external ears normal and unable to visualize TM Face/Nose/Sinus: Normal external nose present and Normal nares present Eyes: General: appearance normal, both eyes and all related structures Alignment and Position: alignment normal Periorbital: periorbital findings normal Eyelids: eyelids normal Sclera: sclerae normal Pupils: Equal, round and reactive pupils present EOM: EOMs intact bilaterally Neck: Neck: normal visual inspection, full ROM, no lymphadenopathy, trachea midline and supple Chest: Chest palpation & inspection: normal inspection of the chest Resp: Effort & Inspection: normal respiratory effort Auscultation: clear to auscultation bilaterally Cardio: Palpation: normal PMI Rate: regular rate Rhythm: regular rhythm Heart sounds: S1 normal heart sound present and S2 normal heart sound present Peripheral pulses: Peripheral pulses 2+ throughout GI: Inspection: normal to inspection Auscultation: normal bowel sounds Rectal Exam: deferred Other: Tenderness to left and right lower quadrant more so the left than the right Back/Spine/Pelvis: Cervical Spine: cervical ROM normal Skin: General skin exam: normal color Lesions: no lesions Rashes: no rashes Trauma: no lacerations or abrasions Wounds: no wounds Hair: normal Nails: normal Neuro: General: oriented to person, oriented to place, oriented to time and patient oriented x3 Cranial nerves: Yes Equal, round and reactive pupils present and Yes Normal hearing present Cognition (Neuro): normal cognition Speech: normal speech Motor exam (neuro): 5/5 motor strength present throughout Sensory Exam: normal sensation Extrem: General: normal to inspection Right upper extrem
--- NOTE | 2022-12-31 15:30 | WPDUROPN2 ---
Progress Note: A&P Assessment and Plan (1) Ureterolithiasis: Code(s): N20.1 - Calculus of ureter Status: Acute (2) UTI (urinary tract infection): Code(s): N39.0 - Urinary tract infection, site not specified Status: Acute Assessment and Plan: Continue IV antibiotics, tailor to pending cultures. (3) Right renal stone: Code(s): N20.0 - Calculus of kidney Status: Acute Assessment and Plan: Will plan to do Cystoscopy, left ureteroscopy with stone removal, stent exchange, left retrograde pyelogram, possible holmium laser, right ESWL when infection is treated as an outpatient. She will need to f/u in our office in 1-2 weeks and repeat a urine culture to ensure infection has resolved. No further evaluation at this time. (4) Left ureteral stone: Code(s): N20.1 - Calculus of ureter Status: Acute Subjective Subjective Date/Time Seen: 12/31/22 15:30 POD #1 Cystoscopy with bilateral ureteral stent placements 6 [place] contour left side and 4.8 [place] contour on the right Her pain is improved, she is still c/o LLQ pain likely d/t the colon abscess. She is afebrile and WBC is increased to 13.5, urine and blood cultures are pending. KUB shows multiple left distal ureteral stones, right renal stones and bilateral stents in place. Post Op day: 1 Review of Systems Cardiovascular: Cardiovascular: Denies chest pain Respiratory: Respiratory: Reports no additional respiratory complaints Gastrointestinal: Gastrointestinal: Denies abdominal pain, Denies nausea and Denies vomiting Exam Const: General: comfortable Resp: Effort & Inspection: normal respiratory effort Cardio: Rate: regular rate GI: GI Palp: Yes Soft to palpation and Yes Tenderness to palpation present (GI) (LLQ pain) : General: Yes no CVA tenderness Extrem: Right lower extremity: no edema Left lower extremity: no edema Objective Data Vital Signs Vital Signs: Vital Signs - 24 hr 12/30/22 16:00 12/30/22 16:00 12/30/22 18:00 Temperature 97.9 F Pulse Rate 64 59 L 68 Respiratory Rate 16 Blood Pressure 140/68 Pulse Oximetry 100 Oxygen Delivery 12/30/22 20:00 12/30/22 20:00 12/30/22 23:44 Temperature 97.2 F L 97.6 F Pulse Rate 69 63 Respiratory Rate 16 16 Blood Pressure 147/74 H 118/52 L Pulse Oximetry 96 100 97 Oxygen Delivery Room Air 12/31/22 00:00 12/31/22 04:00 12/31/22 04:00 Temperature 97.3 F L Pulse Rate 55 L Respiratory Rate 16 Blood Pressure 137/58 L Pulse Oximetry 100 99 100 Oxygen Delivery Room Air Room Air 12/30/22 20:00 12/30/22 22:00 12/31/22 00:00 Temperature Pulse Rate 66 54 L 53 L Respiratory Rate Blood Pressure Pulse Oximetry Oxygen Delivery 12/31/22 02:00 12/31/22 04:00 12/31/22 06:00 Temperature Pulse Rate 88 51 L 88 Respiratory Rate Blood Pressure Pulse Oximetry Oxygen Delivery 12/31/22 08:00 12/31/22 08:00 12/31/22 08:00 Temperature 97.2 F L Pulse Rate 77 62 Respiratory Rate 16 Blood Pressure 146/102 H Pulse Oximetry 99 Oxygen Delivery Room Air 12/31/22 09:30 Temperature 98.3 F Pulse Rate 69 Respiratory Rate 16 Blood Pressure 115/79 Pulse Oximetry 98 Oxygen Delivery Intake/Output Intake/Output: Intake & Output 12/28/22 12/29/22 12/30/22 12/31/22 23:59 23:59 23:59 23:59 Intake Total 2150 1100 Output Total 1450 1450 Balance 700 -350 Meds/Results Medications: Active Medications Generic Name Dose Route Start Last Admin Trade Name Freq PRN Reason Stop Dose Admin Enoxaparin Sodium 40 mg 01/01/23 09:00 Enoxaparin 40 Mg/0.4 Ml Syringe SUB-Q DAILY LITTLE Famotidine 20 mg 12/30/22 21:00 12/31/22 08:04 Famotidine 20 Mg/2 Ml Vial IV PUSH 20 mg Q12HR LITTLE Administration Piperacillin/Tazobactam/Dextrose 3.375 gm in 50 mls @ 100 mls/hr 12/30/22 15:00 12/31/22 09:10 Zosyn 3.375 Gm/Ns 50 Ml IVPB Infused Q6H
[2022-12-31] MEDS: ENOXAPARIN 40 MG/0.4 ML SYRINGE SUB-Q (15:43)
[2023-01-01] MEDS: SODIUM CHLORIDE 0.9% IV 1,000 ML 125 ML IV CONT ×2 (01:47→11:19)
[2023-01-01] MEDS: PIPERACILLN/TAZ 3.375GM/NS50ML 3.375 GM/50 ML BAG IVPB ×4 (02:22→20:19)
[2023-01-01 06:58] LABS: Hematocrit 38.1 % (37.0-47.0); Hemoglobin 12.5 g/dL (12.0-15.0); Mean Corpuscular HGB Conc 32.8 g/dl (32-36); Mean Corpuscular Hemoglobin 27.7 pg (26-34); Mean Corpuscular Volume 84.5 fl (80-100); Mean Platelet Volume 9.4 fl (7.4-10.4); Platelet Count Result 372 k/mm3 (150-375); Red Blood Count 4.51 M/mm3 (4.2-5.4); Red Cell Distribution Width 12.7 % (11.5-14.5); White Blood Count 11.1 K/mm3 (4.5-10.0)
[2023-01-01 07:07] LABS: Anion Gap 9 mmol/L (8-16); Blood Urea Nitrogen 12 mg/dL (7-17); Calcium 9.8 mg/dL (8.4-10.2); Carbon Dioxide 20 mmol/L (22-30); Chloride 106 mmol/L (98-107); Estimated CRCL calculation 65 ml/min; Estimated Glomerular Filt Rate > 60; Glucose 74 mg/dL (65-110); Potassium 3.7 mmol/L (3.4-5.0); Sodium 135 mmol/L (137-145)
[2023-01-01] MEDS: ENOXAPARIN 40 MG/0.4 ML SYRINGE SUB-Q (08:31)
[2023-01-01] MEDS: FAMOTIDINE 20 MG/2 ML VIAL IV PUSH ×2 (08:31→20:14)
--- NOTE | 2023-01-01 11:16 | PM.PNGS ---
Progress Note: A&P Assessment and Plan (1) Diverticulitis of intestine with abscess: Code(s): K57.80 - Diverticulitis of intestine, part unspecified, with perforation and abscess without bleeding Status: Acute Assessment and Plan: exam much improved, will start clears and slowly ADAT, cont IV abx (2) Ureterolithiasis: Code(s): N20.1 - Calculus of ureter Status: Acute Assessment and Plan: exam improved, s/p gayla ureteral stents Subjective Subjective Date/Time Seen: 01/01/23 11:16 feels much better, +small bowel movt, pain much improved Review of Systems Review of Systems: All systems reviewed & are unremarkable except as noted in HPI and below Exam Const: General: cooperative, comfortable and no acute distress Resp: Auscultation: clear to auscultation bilaterally Cardio: Rate: regular rate Rhythm: regular rhythm GI: Inspection: normal to inspection and non-distended GI Palp: Yes abdominal tenderness, Yes Soft to palpation, Yes Tenderness to palpation present (GI), No Guarding due to palpation present (GI) and No Rigid due to palpation Objective Data Vital Signs Vital Signs: Vital Signs - 24 hr 12/31/22 17:00 12/31/22 21:27 12/31/22 23:36 Temperature 37.0 C 37.2 C Pulse Rate 73 80 Respiratory Rate 16 16 Blood Pressure 118/66 117/75 Pulse Oximetry 99 99 Oxygen Delivery Room Air Intake/Output Intake/Output: Intake & Output 12/29/22 12/30/22 12/31/22 01/01/23 23:59 23:59 23:59 23:59 Intake Total 2150 3200 1100 Output Total 1450 2850 600 Balance 700 350 500 Meds/Results Medications: Active Medications Generic Name Dose Route Start Last Admin Trade Name Freq PRN Reason Stop Dose Admin Diphenhydramine HCl 25 mg 01/01/23 10:38 Diphenhydramine Hcl Inj 50 Mg/Ml Vial IV PUSH Q4H PRN Itching Enoxaparin Sodium 40 mg 01/01/23 09:00 01/01/23 08:31 Enoxaparin 40 Mg/0.4 Ml Syringe SUB-Q 40 mg DAILY LITTLE Administration Famotidine 20 mg 12/30/22 21:00 01/01/23 08:31 Famotidine 20 Mg/2 Ml Vial IV PUSH 20 mg Q12HR LITTLE Administration Piperacillin/Tazobactam/Dextrose 3.375 gm in 50 mls @ 100 mls/hr 12/30/22 15:00 01/01/23 09:01 Zosyn 3.375 Gm/Ns 50 Ml IVPB Infused Q6H LITTLE Infusion Sodium Chloride 1,000 mls @ 125 mls/hr 12/30/22 09:25 01/01/23 01:47 Normal Saline Iv IV CONT 125 mls/hr .Q8H LITTLE Administration Ibuprofen 800 mg in 200 mls @ 400 mls/hr 12/31/22 10:13 Caldolor 800 Mg/200 Ml IVPB Q6H PRN Pain Rated 1-3 Lorazepam 0.5 mg 12/30/22 19:26 Lorazepam Inj (*Crx) 2 Mg/Ml Vial IV PUSH Q6H PRN Anxiety Morphine Sulfate 2 mg 12/30/22 13:17 12/31/22 09:12 Morphine Sulfate (*Crx) 2 Mg/Ml Inj IV PUSH 2 mg Q2H PRN Administration Pain Rated 4-6 Morphine Sulfate 4 mg 12/31/22 10:13 Morphine Sulfate (*Crx) 4 Mg/Ml Inj IV PUSH Q2H PRN Pain Rated 7-10 Ondansetron HCl 4 mg 12/30/22 09:25 Ondansetron Inj 4 Mg/2 Ml Vial IV PUSH Q4H PRN Nausea Radiology Results: ITS Impressions Abdomen/Pelvis CT 12/30/22 08:09 Impression: Acute sigmoid diverticulitis with 4.1 x 3.4 cm abscess adjacent to the distal sigmoid colon. 1.5 x 0.8 cm distal left ureteral stone with moderate to severe left hydroureteronephrosis. 1.2 x 0.8 cm stone at the right renal pelvis, without definite hydronephrosis. Ureter Stent X-Ray 12/30/22 14:14 IMPRESSION: 1. Bilateral internal ureteral stent placement. Please refer to real-time procedural findings for details. Abdomen X-Ray 12/31/22 09:37 Impression: 1: Right nephrolithiasis. 2: Multiple distal left ureteral stones. Labs Labs: Laboratory Results - last 24 hr 01/01/23 01/01/23 06:22 06:22 WBC 11.1 H RBC 4.51 Hgb 12.5 Hct 38.1 MCV 84.5 MCH 27.7 MCHC 32.8 RDW 12.7 Plt Count 372 MPV 9.4 Sodium 135 L Potassium 3.7 C
[2023-01-01 14:00] VITALS: BP 108/62; PULSE 86; RESP 18; TEMP 36.9; O2SAT 100
[2023-01-01 19:25] VITALS: BP 128/69; PULSE 83; RESP 20; TEMP 36.7; O2SAT 98
[2023-01-02] MEDS: PIPERACILLN/TAZ 3.375GM/NS50ML 3.375 GM/50 ML BAG IVPB ×2 (03:11→08:58)
[2023-01-02 04:27] VITALS: BP 123/72; PULSE 70; RESP 20; TEMP 36.6; O2SAT 98
[2023-01-02 05:46] LABS: Hematocrit 37.8 % (37.0-47.0); Hemoglobin 12.6 g/dL (12.0-15.0); Mean Corpuscular HGB Conc 33.3 g/dl (32-36); Mean Corpuscular Hemoglobin 27.8 pg (26-34); Mean Corpuscular Volume 83.3 fl (80-100); Mean Platelet Volume 9.1 fl (7.4-10.4); Platelet Count Result 402 k/mm3 (150-375); Red Blood Count 4.54 M/mm3 (4.2-5.4); Red Cell Distribution Width 12.7 % (11.5-14.5); White Blood Count 7.7 K/mm3 (4.5-10.0)
[2023-01-02 06:03] LABS: Anion Gap 3 mmol/L (8-16); Blood Urea Nitrogen 9 mg/dL (7-17); Calcium 10.1 mg/dL (8.4-10.2); Carbon Dioxide 26 mmol/L (22-30); Chloride 108 mmol/L (98-107); Estimated CRCL calculation 73 ml/min; Estimated Glomerular Filt Rate > 60; Glucose 99 mg/dL (65-110); Potassium 3.9 mmol/L (3.4-5.0); Sodium 137 mmol/L (137-145)
[2023-01-02] MEDS: FAMOTIDINE 20 MG/2 ML VIAL IV PUSH (08:58)
[2023-01-02] MEDS: ENOXAPARIN 40 MG/0.4 ML SYRINGE SUB-Q (08:58)
--- NOTE | 2023-01-02 10:12 | PM.PNGS ---
Progress Note: A&P Assessment and Plan (1) Diverticulitis of intestine with abscess: Code(s): K57.80 - Diverticulitis of intestine, part unspecified, with perforation and abscess without bleeding Status: Acute Assessment and Plan: exam benign, nicole low fiber diet, ok to dc from surgical standpoint c po abx, f/u 2 wks (2) Ureterolithiasis: Code(s): N20.1 - Calculus of ureter Status: Acute Assessment and Plan: s/p gayla stents, mgmt per urology Subjective Subjective Date/Time Seen: 01/02/23 10:12 feels much better, nicole low fiber diet Review of Systems Review of Systems: All systems reviewed & are unremarkable except as noted in HPI and below Exam Const: General: cooperative, comfortable and no acute distress Resp: Auscultation: clear to auscultation bilaterally Cardio: Rate: regular rate Rhythm: regular rhythm GI: Inspection: normal to inspection and non-distended GI Palp: Yes abdominal tenderness, Yes Soft to palpation, Yes Tenderness to palpation present (GI), No Guarding due to palpation present (GI) and No Rigid due to palpation Other: minimal TTP LLQ Objective Data Vital Signs Vital Signs: Vital Signs - 24 hr 01/01/23 14:00 01/01/23 19:25 01/01/23 20:00 Temperature 36.9 C 36.7 C Pulse Rate 86 83 Respiratory Rate 18 20 Blood Pressure 108/62 128/69 Pulse Oximetry 100 98 Oxygen Delivery Room Air 01/02/23 04:27 Temperature 36.6 C Pulse Rate 70 Respiratory Rate 20 Blood Pressure 123/72 Pulse Oximetry 98 Oxygen Delivery Intake/Output Intake/Output: Intake & Output 12/30/22 12/31/22 01/01/23 01/02/23 23:59 23:59 23:59 23:59 Intake Total 2150 3200 3400 1290 Output Total 1450 2850 600 Balance 383 675 3756 1290 Meds/Results Medications: Active Medications Generic Name Dose Route Start Last Admin Trade Name Freq PRN Reason Stop Dose Admin Diphenhydramine HCl 25 mg 01/01/23 10:38 Diphenhydramine Hcl Inj 50 Mg/Ml Vial IV PUSH Q4H PRN Itching Enoxaparin Sodium 40 mg 01/01/23 09:00 01/02/23 08:58 Enoxaparin 40 Mg/0.4 Ml Syringe SUB-Q 40 mg DAILY LITTLE Administration Famotidine 20 mg 12/30/22 21:00 01/02/23 08:58 Famotidine 20 Mg/2 Ml Vial IV PUSH 20 mg Q12HR LITTLE Administration Piperacillin/Tazobactam/Dextrose 3.375 gm in 50 mls @ 100 mls/hr 12/30/22 15:00 01/02/23 08:58 Zosyn 3.375 Gm/Ns 50 Ml IVPB 100 mls/hr Q6H LITTLE Administration Sodium Chloride 1,000 mls @ 125 mls/hr 12/30/22 09:25 01/02/23 07:00 Normal Saline Iv IV CONT Infused .Q8H LITTLE Infusion Ibuprofen 800 mg in 200 mls @ 400 mls/hr 12/31/22 10:13 Caldolor 800 Mg/200 Ml IVPB Q6H PRN Pain Rated 1-3 Lorazepam 0.5 mg 12/30/22 19:26 Lorazepam Inj (*Crx) 2 Mg/Ml Vial IV PUSH Q6H PRN Anxiety Morphine Sulfate 2 mg 12/30/22 13:17 12/31/22 09:12 Morphine Sulfate (*Crx) 2 Mg/Ml Inj IV PUSH 2 mg Q2H PRN Administration Pain Rated 4-6 Morphine Sulfate 4 mg 12/31/22 10:13 Morphine Sulfate (*Crx) 4 Mg/Ml Inj IV PUSH Q2H PRN Pain Rated 7-10 Ondansetron HCl 4 mg 12/30/22 09:25 Ondansetron Inj 4 Mg/2 Ml Vial IV PUSH Q4H PRN Nausea Radiology Results: ITS Impressions Abdomen/Pelvis CT 12/30/22 08:09 Impression: Acute sigmoid diverticulitis with 4.1 x 3.4 cm abscess adjacent to the distal sigmoid colon. 1.5 x 0.8 cm distal left ureteral stone with moderate to severe left hydroureteronephrosis. 1.2 x 0.8 cm stone at the right renal pelvis, without definite hydronephrosis. Ureter Stent X-Ray 12/30/22 14:14 IMPRESSION: 1. Bilateral internal ureteral stent placement. Please refer to real-time procedural findings for details. Abdomen X-Ray 12/31/22 09:37 Impression: 1: Right nephrolithiasis. 2: Multiple distal left ureteral stones. Labs Labs: Laboratory Results - last 24 hr 01/02/23 01/02/23 05:39 0
[2023-01-02 14:00] VITALS: BP 116/77; PULSE 84; RESP 18; TEMP 36.9; O2SAT 100
--- NOTE | 2023-01-02 15:07 | PC.NURSE ---
Called Dr. Sheikh in regards to patients discharge. No answer.
--- NOTE | 2023-01-02 15:34 | PC.NURSE ---
Aguilar called back and general lisa has agreed patient is okay to discharge. Card Assembler will reach out to hospitalist Armin who wrote report on patient 12/31 but patient has no hospitalist today. Will call motors and controls tester urology Garrett to see if patient is okay to discharge.
--- NOTE | 2023-01-02 15:56 | PC.NURSE ---
Spoke with Garrett and he states that a hospitalist will have to sign off and discharge the patient.
--- NOTE | 2023-01-02 16:08 | PC.NURSE ---
Updated Charge Jayda in regards to discharging situation. Charge will call roundhouse supervisor.
--- NOTE | 2023-01-02 17:57 | PM.DS ---
DS: Admitting Diagnosis Discharge Date 01/02/23 Admitting Diagnosis diverticulitis, kidney stone, uti DS: Discharge Diagnosis Discharge Diagnosis (1) Diverticulitis of intestine with abscess: Code(s): K57.80 - Diverticulitis of intestine, part unspecified, with perforation and abscess without bleeding Status: Acute Assessment and Plan: Appreciate surgical input The patient was placed on Zosyn Abdominal pelvis CT was read as Acute sigmoid diverticulitis with 4.1 x 3.4 cm abscess adjacent to the distal sigmoid colon. 1.5 x 0.8 cm distal left ureteral stone with moderate to severe left hydroureteronephrosis. 1.2 x 0.8 cm stone at the right renal pelvis, without definite hydronephrosis. Continue bowel rest Continue with analgesics Blood cultures are pending (2) Status post placement of ureteral stent: Code(s): Z96.0 - Presence of urogenital implants Status: Acute Assessment and Plan: Appreciate urology input (3) Anxiety and depression: Code(s): F41.9 - Anxiety disorder, unspecified; F32.A - Depression, unspecified Status: Acute Assessment and Plan: P.rjuan Temple (4) Major depressive disorder, recurrent episode, moderate: Code(s): F33.1 - Major depressive disorder, recurrent, moderate Status: Acute Assessment and Plan: Patient is currently not taking any medication at this time. She has a past medical history. (5) GERD (gastroesophageal reflux disease): Qualifiers: Esophagitis presence: esophagitis presence not specified Qualified Code(s): K21.9 - Gastro-esophageal reflux disease without esophagitis Code(s): K21.9 - Gastro-esophageal reflux disease without esophagitis Status: Acute Assessment and Plan: IV Pepcid DS: Summary Hospital Course Hospital Course: ADMITTED for ureteral stone, sp stent and diverticulitis and will be discharged on antibiotics. Follow up with surgery and urology. Time Spent with Patient Time attestation: Total time spent providing and/or coordinating discharge services: Exam Const: General: cooperative, healthy appearing, comfortable, no acute distress, well developed, awake, Physically active, average body habitus and well nourished Nutritional Appearance: average body habitus and well nourished Orientation/consciousness: oriented to person, oriented to place, oriented to time and patient oriented x3 Limitations: no limitations HENMT: Head: normal to inspection, No palpable skull fracture present, normocephalic, atraumatic and abrasion Ears: hearing grossly normal bilaterally, external ears normal and unable to visualize TM Face/Nose/Sinus: Normal external nose present and Normal nares present Eyes: General: appearance normal, both eyes and all related structures Alignment and Position: alignment normal Periorbital: periorbital findings normal Eyelids: eyelids normal Sclera: sclerae normal Pupils: Equal, round and reactive pupils present EOM: EOMs intact bilaterally Neck: Neck: normal visual inspection, full ROM, no lymphadenopathy, trachea midline and supple Chest: Chest palpation & inspection: normal inspection of the chest Resp: Effort & Inspection: normal respiratory effort Auscultation: clear to auscultation bilaterally Cardio: Palpation: normal PMI Rate: regular rate Rhythm: regular rhythm Heart sounds: S1 normal heart sound present and S2 normal heart sound present Peripheral pulses: Peripheral pulses 2+ throughout GI: Inspection: normal to inspection Auscultation: normal bowel sounds Rectal Exam: deferred Other: Tenderness to left and right lower quadrant more so the left than the right Back/Spine/Pelvis: Cervical Spine: cervical ROM normal Skin: General skin exam: normal color Lesions: no lesions Rashes: no rashes Trauma: no lacerations or abrasions Wounds: no wounds Hair: normal Nails: normal Neuro: General: oriented to person, oriented to place, paxton
== END 2023-01-02 18:20 | disposition home or self-care (01) | DRG 660 ==
LOC: ANHED 14:31 → ANHSURGERY 14:31 → ANHIMU 14:32 → ANH3MED 12-31 11:21 → ANHIMU 01-02 16:17
PROVIDERS: Emergency Medicine; Nurse Practitioner; Nurse Practitioner Family; Surgery; Urology; Admitting Provider Chiropractor; Emergency Provider Emergency Medicine; PCP Family Medicine; Visit Provider Chiropractor
PROC: 0T788DZ Dilation of Bilateral Ureters with Intraluminal Device, Via Natural or Artificial Opening Endoscopic (ICD-10-PCS; CPT 52352; principal; 2022-12-30 12:30)
DX: N13.6 Pyonephrosis (principal); K57.20 Diverticulitis of large intestine with perforation and abscess without bleeding; N39.0 Urinary tract infection, site not specified; N20.0 Calculus of kidney; F41.9 Anxiety disorder, unspecified; F32.A Depression, unspecified; K21.9 Gastro-esophageal reflux disease without esophagitis; Z86.16 Personal history of COVID-19; Z90.710 Acquired absence of both cervix and uterus
CPT/HCPCS: 36415; 74018; 74177; 80048; 80053; 81001; 83605; 83690; 83735; 85025; 85027; 87040; 87086; 87088; 96361; 96365; 96375; 99285; C1758; C1769; C2617; G0378; J1100; J1650; J2250; J2270; J2405; J2543; J2704; J3010; J7030; J7120; Q9967

== ENCOUNTER 2023-01-03 11:43 | Observation (INO) | payer BC, SELFPAY ==
--- NOTE | ~2023-01-03 | CT_ITS ---
EXAMINATION: CT abdomen pelvis w con DATE: 01/03/2023 13:44 INDICATION: Left lower quadrant abdominal pain. TECHNIQUE: Computed tomography (CT) of the abdomen and pelvis was performed with 100 mL Omnipaque 350 intravenous contrast. Automated exposure control and iterative reconstruction technique were employe d. The dose-length product was 532.19 mGy-cm. COMPARISON: CT abdomen and pelvis 12/30/2022 FINDINGS: The visualized portions of the lung bases demonstrate mild atelectasis. No pleural effusion . The heart size is normal. No pericardial effusion. The liver, spleen, pancreas, and adrenal glands are normal. There is 11 mm stone in right kidney. There is mild right hydronephrosis and hydroureter with urothelial thickening and enhancement. There is a right internal ureteral stent in expected posi tion. There is mild atrophy of left kidney. There is moderate left hydronephrosis and hydroureter wit h urothelial thickening and enhancement. There is a left internal ureteral stent in expected position . There are two stones in distal left ureter with the larger measuring 7 mm. There are scattered dive rticula in the colon. There is fat stranding around the sigmoid colon that abuts the bladder. There i s a 1.6 x 1.1 cm perisigmoid abscess. There are no dilated loops of bowel. The appendix is normal. Th ere is mild retroperitoneal lymphadenopathy, likely reactive. There is no free intraperitoneal fluid. There is moderate lumbar spondylosis. There are bridging endplate osteophytes at multiple levels in the thoracic spine, consistent with diffuse idiopathic skeletal hyperostosis (DISH). IMPRESSION: 1. Acute sigmoid diverticulitis with 1.6 x 1.1 cm perisigmoid abscess with interval improvement. 2. Bilateral pyelitis. 3. Stones in the right kidney and distal left ureter with bilateral internal ureteral stents in expec rob positions. Reviewed, dictated and finalized at location A. IMPRESSION: 1. Acute sigmoid diverticulitis with 1.6 x 1.1 cm perisigmoid abscess with inte rval improvement. 2. Bilateral pyelitis. 3. Stones in the right kidney and distal left ureter with bilateral internal ur eteral stents in expected positions.
[2023-01-03 12:06] VITALS: BP 165/75; PULSE 79; RESP 18; TEMP 36.8; O2SAT 100
--- NOTE | 2023-01-03 12:45 | ED.FEMALEGU ---
HPI - Female Genitourinary General Chief complaint: Urogenital-Female <Shanda Moreland PA-C - Last Filed: 01/03/23 17:11> Stated complaint: kidney stone problems <Shanda Moreland PA-C - Last Filed: 01/03/23 17:11> Time Seen by Provider: 01/03/23 11:58 <Shanda Moreland PA-C - Last Filed: 01/03/23 17:11> History of Present Illness HPI Narrative: 57-year-old female with a history of ureterolithiasis, diverticulitis of intestine with abscess, GERD, anxiety and depression reports for evaluation of generalized abdominal pain and right flank pain. Patient was hospitalized from 12/30-01/02 the ER with abdominal pain and flank pain and was found to have acute sigmoid diverticulitis with 4.1 x 3.4 cm abscess adjacent to the distal sigmoid colon, 1.5 x 3.8 cm distal left ureteral stone with moderate to severe left hydro ureteric nephrosis, 1.2 x 0.8 cm stone at the right renal pelvis without definite hydronephrosis. She was evaluated by urology and had bilateral stents placed and by general surgery who opted to treat with IV antibiotic therapy and bowel rest due to risk of colostomy with surgical intervention. She reports she was feeling better prior to discharge, was discharged home with Augmentin at 6 PM last night. States when she got home, she began feeling worsening pain, nausea and vomiting. Reports vomiting 4-5 times since she has been home less than 24 hours. States she was unable to sleep secondary to nausea, vomiting and abdominal pain. Denies fevers, diarrhea, chest pain or shortness of breath, melena or hematochezia. Last bowel movement was in the ED and small in caliber. <Shanda Moreland PA-C - Last Filed: 01/03/23 17:11> Related Data Allergies/Adverse reactions: Allergies Allergy/AdvReac Type Severity Reaction Status Date / Time No Known Allergies Allergy Verified 01/07/23 14:51 <Shanda Moreland PA-C - Last Filed: 01/03/23 17:11> Review of Systems Review of Systems: CONSTITUTIONAL: Denies fever, chills EYES: Denies visual changes, redness, or discharge. ENT: Denies rhinorrhea, congestion, sore throat, or otalgia. CARDIOVASCULAR: Denies chest pain, palpitations, or edema. RESPIRATORY: Denies cough or dyspnea. GASTROINTESTINAL: See HPI GENITOURINARY: Denies dysuria or hematuria. SKIN: Denies rash or itching. MUSCULOSKELETAL: See HPI NEUROLOGIC: Denies headache, numbness, dizziness, or weakness. PSYCHIATRIC: Denies anxiety or depression. <Shanda Moreland PA-C - Last Filed: 01/03/23 17:11> [facility] Past Medical History Medical History: Medical History Anxiety and depression Bladder prolapse 2004 COVID-19 (~04/2020) Hepatitis C antibody test negative (12/06/07) <BROOKE Deras Last Filed: 01/03/23 17:11> Surgical History Surgical History: Surgical History H/O dilation and curettage H/O: hysterectomy ANDREEA-BSO 2002 History of bilateral tubal ligation History of bladder surgery History of oophorectomy History of tonsillectomy Status post placement of ureteral stent <Shanda Moreland PA-C - Last Filed: 01/03/23 17:11> Family History Family History: Family History Father Kidney stones <Shanda Moreland PA-C - Last Filed: 01/03/23 17:11> Social History Social History: Social History Social History: 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 She lives with her and has 2 children. Code status full code Smoking status: Never smoker Alcohol intake: never Drinks per week: 1 Substance use: never Substance use type: does not use Lack of Transportation: No Lack of Food: Never True Current Housing: I Have Housing Concerned About Future Housing: No Difficulty Paying
[2023-01-03 12:49] LABS: Basophils Absolute Auto 0.1 K/mm3 (0.0-0.1); Basophils Percent Auto 0.5 % (0.2-1.2); Eosinophils Absolute Auto 0.1 K/mm3 (0-0.3); Eosinophils Percent Auto 0.5 % (0-4.4); Hematocrit 43.7 % (37.0-47.0); Hemoglobin 14.3 g/dL (12.0-15.0); Immature Granulocyte Absolute 0.05 K/mm3 (0.00-0.031); Immature Granulocyte Percent A 0.4 % (0-0.5); Lymphocytes Percent Auto 13.7 % (18.3-44.2); Mean Corpuscular HGB Conc 32.7 g/dl (32-36); Mean Corpuscular Hemoglobin 27.4 pg (26-34); Mean Corpuscular Volume 83.9 fl (80-100); Mean Platelet Volume 9.5 fl (7.4-10.4); Monocytes Absolute Auto 0.7 K/mm3 (0.1-0.6); Monocytes Percent Auto 5.6 % (2.6-8.5); Neutrophils Absolute Auto 9.8 K/mm3 (1.3-6.7); Neutrophils Percent Auto 79.3 % (45.5-73.1); Platelet Count Result 550 k/mm3 (150-375); Red Blood Count 5.21 M/mm3 (4.2-5.4); Red Cell Distribution Width 12.8 % (11.5-14.5); White Blood Count 12.4 K/mm3 (4.5-10.0)
[2023-01-03 12:50] LABS: Appearance Urine Turbid (Clear); Bacteria Urine 2+ /hpf; Bilirubin Urine 1+ (Negative); Blood Urine 3+ (Negative); Color Urine Red (Yellow); Glucose Urine UA 1+ mg/dL (Negative); Ketones Urine Negative (Negative); Leukocyte Esterase Ur 3+ LEU/UL (Negative); Need Manual Microscopic Reviewed; Nitrate Urine Positive (Negative); Protein Urine 3+ mg/dL (Negative); RBC Urine >100 /hpf (0-2); Specific Grav Ur 1.017 (1.001-1.035); Squamous Epithelial Cell Urine Occasional /hpf (Few); Urobilinogen Urine 0.2 mg/dL (<2.0); WBC Urine >100 /hpf; pH Urine 6.5 (5.0-9.0)
[2023-01-03 12:55] LABS: Alanine Aminotransferase 63 U/L (6-35); Albumin Level 4.2 g/dL (3.5-5.1); Alkaline Phosphatase 115 U/L (38-126); Anion Gap 7 mmol/L (8-16); Aspartate Amino Transferase 31 U/L (14-36); Bilirubin,Total 0.5 mg/dL (0.2-1.3); Blood Urea Nitrogen 15 mg/dL (7-17); Carbon Dioxide 29 mmol/L (22-30); Chloride 103 mmol/L (98-107); Estimated Glomerular Filt Rate > 60; Glucose 137 mg/dL (65-110); Potassium 3.6 mmol/L (3.4-5.0); Sodium 139 mmol/L (137-145)
[2023-01-03] MEDS: SODIUM CHLORIDE 0.9% IV 1,000 ML 999 ML IV CONT (12:55)
[2023-01-03] MEDS: ONDANSETRON INJ 4 MG/2 ML VIAL IV PUSH (12:56)
[2023-01-03] MEDS: MORPHINE SULFATE (*CRX) 4 MG/ML INJ IV PUSH (12:57)
[2023-01-03 13:00] LABS: Add Urine Microscopic? YES
[2023-01-03] MEDS: PIPERACILLN/TAZ 3.375GM/NS50ML 3.375 GM/50 ML BAG IVPB ×2 (14:17→22:05)
[2023-01-03 15:49] VITALS: BP 100/55; PULSE 55; RESP 18
--- NOTE | 2023-01-03 16:01 | PM.CNGS ---
Assessment and Plan Assessment and plan (1) Diverticulitis of intestine with abscess: Code(s): K57.80 - Diverticulitis of intestine, part unspecified, with perforation and abscess without bleeding Status: Acute Assessment and Plan: Patient discharged yesterday on Augmentin for her diverticulitis and returned today with nausea and vomiting. Her nausea and vomiting does not appear to be related to her diverticulitis. She is actually showing improvement of her diverticulitis by CT and her abdominal pain. If she is unable to tolerate oral antibiotics, then we would recommend restarting IV Zosyn until she is able to tolerate oral intake or until she completes a 7-10 day course of antibiotics. No indication for any surgical intervention at this time. We will continue to follow along for now. (2) Nausea & vomiting: Qualifiers: Vomiting type: unspecified Qualified Code(s): R11.2 - Nausea with vomiting, unspecified Code(s): R11.2 - Nausea with vomiting, unspecified Status: Acute Assessment and Plan: Returned to the ER for nausea and vomiting. This does not appear to be related to her diverticulitis. This could be a complication of her kidney stone disease. Continue IV antibiotics and antiemetics as needed. Already seems to be improving. (3) Pyelitis: Code(s): N12 - Tubulo-interstitial nephritis, not specified as acute or chronic Status: Acute Assessment and Plan: Agree with Urology consultation. (4) Ureterolithiasis: Code(s): N20.1 - Calculus of ureter Status: Acute (5) Status post placement of ureteral stent: Code(s): Z96.0 - Presence of urogenital implants Status: Acute Plan I have discussed the patient's case and plan of care with Dr. Martinez. History of Present Illness Consult details Consult date: 01/03/23 Reason for consult: other (Diverticulitis with abscess) Requesting physician: Shanda Moreland PA-C Narrative: This is a 57-year-old woman known to our service from a recent hospitalization for diverticulitis with abscess. She was admitted from 12/30/2022 through 01/02/2023. She was found to have acute sigmoid diverticulitis with a 4.1 x 3.4 cm abscess adjacent to the distal sigmoid colon, as well as severe left hydroureteronephrosis with an obstructing distal left ureteral stone. She underwent cystoscopy with bilateral ureteral stent placement on 12/30/[address] Gutierrez. She was treated with IV antibiotics and eventually discharged on Augmentin and a low-fiber diet yesterday. She was tolerating a diet up until she got home. She had multiple episodes of vomiting once home. She tried taking her Augmentin, but vomited shortly after taking her medication. She presented back to the ER today with complaints of nausea and vomiting. She is still having some left lower quadrant abdominal pain, but reports this is about the same from when she was discharged. Prior to discharge her white blood cell count was normal. On labs today, her white blood cell count was up slightly to 12,000. CT scan of abdomen and pelvis was repeated as she was still having left lower quadrant abdominal pain and showed sigmoid diverticulitis with a 1.6 x 1.1 cm perisigmoid abscess showing interval improvement. Also noted was bilateral pyelitis, stones in the right kidney and distal left ureter with bilateral ureteral stents in expected positions. Our service was consulted by the ED physician due to the diverticulitis. She is now seen in the ER. She reports her nausea and abdominal pain have improved since receiving IV morphine and Zofran. She reports a small bowel movement earlier this morning. No blood in her stool. Does report hematuria. Reports chills, but no fever. No other complaints at this time. Review of Systems Review of Systems: All systems reviewed & are unremarkable except as noted in HPI and below PMFSH Past Medical History Medical History (Reviewed 12/12
--- NOTE | 2023-01-03 18:16 | PC.NURSE ---
called Emma and they are still awaiting room being cleaned.
--- NOTE | 2023-01-03 18:45 | PC.NURSE ---
pt sleeping comfortably in bed at this time.
[2023-01-03 19:16] VITALS: BP 129/73; PULSE 69; RESP 18; O2SAT 99
--- NOTE | 2023-01-03 19:48 | ADMGEN ---
This patient, Ignacia Núñez, was admitted to Medical Room 347-. Patient/family oriented to hospital policies and general routines including ID bracelet, bed and alarms, visiting hours, pain management, procedures, bathroom and other care routines, personal items, smoking policy, room service/diet, and visiting hours. Information on how to activate the Rapid Response Team has been discussed. Patient/Family are encouraged to report perceived risks to care and to ask questions if they do not understand what they are told or what they should do.
--- NOTE | 2023-01-03 21:04 | PM.IMHP ---
H&P: HPI History of Present Illness Date/Time: 01/03/23 21:04 Chief Complaint: Kidney stone problems/diverticulitis with nausea vomiting Narrative: This is a 57-year-old female patient who was discharged yesterday. She has a history of ureterolithiasis, diverticulitis of intestine with abscess, GERD anxiety and depression. The patient came in today with generalized abdominal pain and right flank pain the patient has been hospitalized from [id number]. The patient was found to have acute sigmoid diverticulitis 4.1 x 3.4 cm abscess adjacent to the distal sigmoid colon. Also 1.5 x 3.8 cm distal left ureter stone with moderate to severe left hydro ureteral nephrosis. The patient was seen by Urology and a bilateral stent was placed. She was also seen by General surgery for the diverticulitis with abscess. The patient had been on IV antibiotics Zosyn and was discharged home on Augmentin. The patient stated when she got home she felt worse pain with nausea vomiting. The patient was not able to keep down the Augmentin. The patient stated she was not sent home with any antiemetics. Her white count today is 12.4. Platelet count 550. Her urine remains positive for UTI. Her last urine culture on 12/22/2022 was growing E coli. Abdominal pelvis CT was read as the following1 1.. Acute sigmoid diverticulitis with 1.6 x 1.1 cm perisigmoid abscess with interval improvement. 2. Bilateral pyelitis. 3. S surgery has been consulted. Tones in the right kidney and distal left ureter with bilateral internal ureteral stents in expected positions. The patient was given IV fluids, morphine, Zofran and Zosyn. When I assessed the patient she was not having any discomfort or any further nausea vomiting. The patient is being admitted to observation status on the date of service of 01/03/2023. Review of Systems Review of Systems: All systems reviewed & are unremarkable except as noted in HPI and below Constitutional: Constitutional: Reports as per HPI and Reports no additional constitutional complaints Eyes: Eyes: Reports as per HPI and Reports no additional eye complaints ENT: Reports system reviewed and no additional complaints, except as documented and Reports Normal hearing present Cardiovascular: Cardiovascular: Reports no additional cardiovascular complaints Respiratory: Respiratory: Reports no additional respiratory complaints and Reports no additional respiratory complaints Gastrointestinal: Gastrointestinal: Reports as per HPI and Reports no additional gastrointestinal complaints Musculoskeletal: Musculoskeletal: Reports no additional musculoskeletal complaints Integumentary/Breasts: Skin/Breast: Reports system reviewed and no additional complaints, except as docu and Reports as per HPI Neurologic: Reports system reviewed and no additional complaints, except as documented, Reports as per HPI and Reports Normal hearing present Psychiatric: Psychiatric: Reports no additional psychiatric complaints and Reports as per HPI Endocrine: Endocrine: Reports no additional endocrine complaints Hematologic/Lymphatic: Hematologic/Lymphatic: Reports no additional hematologic/lymphatic complaints Allergic/Immunologic: Allergic/Immunologic: Reports no additional allergic/immunologic complaints PMFSH Past Medical History Medical History Anxiety and depression Bladder prolapse 2004 COVID-19 (~04/2020) Hepatitis C antibody test negative (12/06/07) Surgical History Surgical History H/O dilation and curettage H/O: hysterectomy ANDREEA-BSO 2001 History of bilateral tubal ligation History of bladder surgery History of oophorectomy History of tonsillectomy Status post placement of ureteral stent Family History Family History Father Kidney stones Social History Social History (Reviewed 01/04/23 @
[2023-01-03 22:00] VITALS: BP 140/76; PULSE 84; RESP 18; TEMP 36.7; O2SAT 91
[2023-01-04] MEDS: PIPERACILLN/TAZ 3.375GM/NS50ML 3.375 GM/50 ML BAG IVPB ×4 (03:05→20:25)
[2023-01-04 05:41] LABS: Basophils Absolute Auto 0.1 K/mm3 (0.0-0.1); Basophils Percent Auto 0.9 % (0.2-1.2); Eosinophils Absolute Auto 0.5 K/mm3 (0-0.3); Eosinophils Percent Auto 4.6 % (0-4.4); Hematocrit 39.4 % (37.0-47.0); Immature Granulocyte Absolute 0.03 K/mm3 (0.00-0.031); Immature Granulocyte Percent A 0.3 % (0-0.5); Lymphocytes Absolute Auto 2.42 K/mm3 (0.9-3.2); Lymphocytes Percent Auto 23.9 % (18.3-44.2); Mean Corpuscular Hemoglobin 27.5 pg (26-34); Mean Corpuscular Volume 83.3 fl (80-100); Mean Platelet Volume 9.1 fl (7.4-10.4); Monocytes Absolute Auto 0.9 K/mm3 (0.1-0.6); Monocytes Percent Auto 8.4 % (2.6-8.5); Neutrophils Absolute Auto 6.3 K/mm3 (1.3-6.7); Neutrophils Percent Auto 61.9 % (45.5-73.1); Platelet Count Result 492 k/mm3 (150-375); Red Blood Count 4.73 M/mm3 (4.2-5.4); Red Cell Distribution Width 12.9 % (11.5-14.5); White Blood Count 10.1 K/mm3 (4.5-10.0)
[2023-01-04 06:00] VITALS: BP 135/68; PULSE 66; RESP 16; TEMP 36.7; O2SAT 99
[2023-01-04 06:05] LABS: Alanine Aminotransferase 50 U/L (6-35); Albumin Level 3.8 g/dL (3.5-5.1); Alkaline Phosphatase 92 U/L (38-126); Anion Gap 5 mmol/L (8-16); Aspartate Amino Transferase 30 U/L (14-36); Bilirubin,Total 0.5 mg/dL (0.2-1.3); Blood Urea Nitrogen 12 mg/dL (7-17); Calcium 10.8 mg/dL (8.4-10.2); Carbon Dioxide 31 mmol/L (22-30); Chloride 103 mmol/L (98-107); Estimated CRCL calculation 65 ml/min; Estimated Glomerular Filt Rate > 60; Glucose 105 mg/dL (65-110); Magnesium 2.1 mg/dL (1.6-2.3); Potassium 3.3 mmol/L (3.4-5.0); Sodium 139 mmol/L (137-145)
[2023-01-04 07:23] LABS: Thyroid Stimulating Hormone Reflex 0.443 uIU/mL (0.465-4.68)
[2023-01-04 07:51] LABS: Free T4 Free Thyroxine Reflex 1.62 ng/dL (0.78-2.19)
[2023-01-04] MEDS: MORPHINE SULFATE (*CRX) 4 MG/ML INJ IV PUSH (08:32)
[2023-01-04 09:02] LABS: Total Triiodothyronine (T3) 1.51 NG/ML (0.97-1.69)
--- NOTE | 2023-01-04 09:58 | PM.PNGS ---
Progress Note: A&P Assessment and Plan (1) Diverticulitis of intestine with abscess: Code(s): K57.80 - Diverticulitis of intestine, part unspecified, with perforation and abscess without bleeding Status: Acute Assessment and Plan: Still having some lower abdominal pain. Repeat CT yesterday showed improvement of her diverticulitis. Will try to transition to oral analgesics and keep IV morphine as an option for breakthrough pain. Continue IV Zosyn and clear liquids today. Repeat labs tomorrow. (2) Nausea & vomiting: Qualifiers: Vomiting type: unspecified Qualified Code(s): R11.2 - Nausea with vomiting, unspecified Code(s): R11.2 - Nausea with vomiting, unspecified Status: Acute Assessment and Plan: Improved, unclear etiology. Today she is reporting that she believes her vomiting is related to when her abdominal pain is uncontrolled. Will continue clear liquids today, antiemetics as needed, continue to monitor. (3) Pyelitis: Code(s): N12 - Tubulo-interstitial nephritis, not specified as acute or chronic Status: Acute Assessment and Plan: Urology consulted from the ER. (4) Ureterolithiasis: Code(s): N20.1 - Calculus of ureter Status: Acute (5) Status post placement of ureteral stent: Code(s): Z96.0 - Presence of urogenital implants Status: Acute Plan I have discussed the patient's case and plan of care with Dr. Martinez. Subjective Subjective Date/Time Seen: 01/04/23 09:58 Patient reports: still having pain, tolerating liquids well, flatus and afebrile Interval history: Patient this morning complaining of more abdominal pain. She now states that she primarily feels nauseated when her pain increases and it has been better controlled while admitted and receiving the Morphine. She is tolerating clear liquids with no nausea this morning. No vomiting since admission. No other complaints at this time. Exam Const: General: comfortable and no acute distress Orientation/consciousness: patient oriented x3 GI: Inspection: non-distended GI Palp: Yes Soft to palpation, Yes Tenderness to palpation present (GI) (LLQ and suprapubic), No Guarding due to palpation present (GI) and No Rebound tenderness present Auscultation: normal bowel sounds Neuro: General: moves all extremities Extrem: General: no calf tenderness bilaterally and no edema Psych: Insight: Good insight present (Psych) Judgement: Good judgement present (Psych) Objective Data Vital Signs Vital Signs: Vital Signs - 24 hr 01/03/23 12:06 01/03/23 15:49 01/03/23 19:16 Temperature 98.3 F Pulse Rate 79 55 L 69 Respiratory Rate 18 18 18 Blood Pressure 165/75 H 100/55 L 129/73 Pulse Oximetry 100 99 Oxygen Delivery Room Air 01/03/23 19:53 01/03/23 20:06 01/03/23 22:00 Temperature 98.0 F Pulse Rate 84 Respiratory Rate 18 Blood Pressure 140/76 Pulse Oximetry 91 Oxygen Delivery Room Air Room Air 01/04/23 06:00 01/04/23 08:00 Temperature 98.1 F Pulse Rate 66 Respiratory Rate 16 Blood Pressure 135/68 Pulse Oximetry 99 Oxygen Delivery Room Air Intake/Output Intake/Output: Intake & Output 01/01/23 01/02/23 01/03/23 01/04/23 23:59 23:59 23:59 23:59 Intake Total 1100 150 Balance 1100 150 Meds/Results Medications: Active Medications Generic Name Dose Route Start Last Admin Trade Name Freq PRN Reason Stop Dose Admin Acetaminophen 650 mg 01/04/23 09:40 Acetaminophen 325 Mg Tablet PO Q6H PRN Mild Pain (1-3) or Fever Hydrocodone Bitart/Acetaminophen 1 tab 01/04/23 09:40 Hydrocodone/Acetaminophen (*Crx) 5-325 Mg Tablet PO Q4H PRN Pain Rated 4-6 Hydrocodone Bitart/Acetaminophen 1 tab 01/04/23 09:40 Hydrocodone/Acetaminophen (*Crx) 10-325 Mg Tablet PO Q6H PRN Pain Rated 7-10 Enoxaparin Sodium 40 mg 01/05/23 09:00 Enoxaparin 40 Mg/0.4 Ml Syringe SUB-Q DAILY LITTLE
--- NOTE | 2023-01-04 10:35 | PM.IMPN ---
Progress Note: A&P Assessment and Plan (1) Abscess of sigmoid colon due to diverticulitis: Code(s): K57.20 - Diverticulitis of large intestine with perforation and abscess without bleeding Status: Acute Assessment and Plan: Abdominal pelvis CT shows that the sigmoid diverticulitis with 1.6 x 1.1 cm perisigmoid abscess with interval improvement. The patient became nauseated with the Augmentin at home. The patient stated that she had not had any anti emetics prescribed for her at home. Patient was resumed back on the Zosyn. She does have mild leukocytosis with white count being 12.4 Advance diet as tolerated. currently on clear liquid diet. (2) Ureterolithiasis: Code(s): N20.1 - Calculus of ureter Status: Acute Assessment and Plan: CT showed. Bilateral pyelitis. Stones in the right kidney and distal left ureter with bilateral internal ureteral stents in expected position The patient is on Zosyn now. Urine cultures are pending last urine cultures grew E coli Continue with analgesics Continue with antiemetics Urology was consulted. Subjective Date/time seen: 01/04/23 10:35 Interval history: reports lower abdominal pain. Remains afebrile. Chart reviewed. CT reviewed. Review of Systems Review of Systems: All systems reviewed & are unremarkable except as noted in HPI and below Exam Narrative: GENERAL: Well appearing, in no acute distress. HEAD: Normocephalic, atraumatic. ENT: Nares clear, no rhinorrhea or epistaxis.? Mucous membranes moist.? NECK: Supple. CHEST: Clear to auscultation.? No respiratory distress.? No wheezes rales or rhonchi HEART: Regular rate and rhythm.? No murmur heard.? Normal peripheral pulses. ABDOMEN: Soft, nondistended, normal active bowel sounds.? Tenderness to left lower quadrant with deep palpation.? No guarding or rigidity.? No peritoneal signs.? No CVA tenderness. EXTREMITIES: Normal range of motion.? No edema. SKIN: Warm, dry, no rash. NEURO: No focal deficits.? Alert and oriented x3. PSYCH: Normal mood and affect. Objective Data Vital Signs Vital Signs: Vital Signs - 24 hr 01/03/23 12:06 01/03/23 15:49 01/03/23 19:16 Temperature 98.3 F Pulse Rate 79 55 L 69 Respiratory Rate 18 18 18 Blood Pressure 165/75 H 100/55 L 129/73 Pulse Oximetry 100 99 Oxygen Delivery Room Air 01/03/23 19:53 01/03/23 20:06 01/03/23 22:00 Temperature 98.0 F Pulse Rate 84 Respiratory Rate 18 Blood Pressure 140/76 Pulse Oximetry 91 Oxygen Delivery Room Air Room Air 01/04/23 06:00 01/04/23 08:00 Temperature 98.1 F Pulse Rate 66 Respiratory Rate 16 Blood Pressure 135/68 Pulse Oximetry 99 Oxygen Delivery Room Air Intake/Output Intake/Output: Intake & Output 01/01/23 01/02/23 01/03/23 01/04/23 23:59 23:59 23:59 23:59 Intake Total 1100 510 Balance 1100 510 Meds/Results Medications: Active Medications Generic Name Dose Route Start Last Admin Trade Name Freq PRN Reason Stop Dose Admin Acetaminophen 650 mg 01/04/23 09:40 Acetaminophen 325 Mg Tablet PO Q6H PRN Mild Pain (1-3) or Fever Hydrocodone Bitart/Acetaminophen 1 tab 01/04/23 09:40 Hydrocodone/Acetaminophen (*Crx) 5-325 Mg Tablet PO Q4H PRN Pain Rated 4-6 Hydrocodone Bitart/Acetaminophen 1 tab 01/04/23 09:40 Hydrocodone/Acetaminophen (*Crx) 10-325 Mg Tablet PO Q6H PRN Pain Rated 7-10 Enoxaparin Sodium 40 mg 01/05/23 09:00 Enoxaparin 40 Mg/0.4 Ml Syringe SUB-Q DAILY LITTLE Piperacillin/Tazobactam/Dextrose 3.375 gm in 50 mls @ 100 mls/hr 01/03/23 21:00 01/04/23 08:33 Zosyn 3.375 Gm/Ns 50 Ml IVPB 100 mls/hr Q6H LITTLE Administration Morphine Sulfate 4 mg 01/03/23 15:49 01/04/23 08:32 Morphine Sulfate (*Crx) 4 Mg/Ml Inj IV PUSH 4 mg Q2H PRN Administration Pain Rated 7-10 Ondansetron HCl 4 mg 01/03/23 15:49 Ondansetron Inj 4 Mg/2 Ml Vial IV PUSH Q4H PRN Nausea
--- NOTE | 2023-01-04 11:19 | PCDIET ---
Nutrition Consult for Low fiber vs High fiber. See Nutritional Teaching Intervention. Thank you for the consult.
[2023-01-04 11:23] VITALS: O2SAT 98
[2023-01-04] MEDS: POTASSIUM CHLORIDE 20 MEQ TABLET 40 MEQ PO (12:29)
[2023-01-04] MEDS: ENOXAPARIN 40 MG/0.4 ML SYRINGE SUB-Q (12:30)
--- NOTE | 2023-01-04 12:30 | WPDURCON ---
Assessment and Plan Assessment and plan (1) Ureterolithiasis: Code(s): N20.1 - Calculus of ureter Status: Acute Assessment and Plan: The patient has a f/u appointment in the office on 01/10/23 to discuss surgical planning. Stents are in place and draining, pyelitis is an expected finding after placement, reviewed imaging with Dr. Spicer. No concerns at this time. Ok to discharge home per Urology at anytime. No further evaluation needed. (2) Pyelitis: Code(s): N12 - Tubulo-interstitial nephritis, not specified as acute or chronic Status: Acute (3) Nausea & vomiting: Qualifiers: Vomiting type: unspecified Qualified Code(s): R11.2 - Nausea with vomiting, unspecified Code(s): R11.2 - Nausea with vomiting, unspecified Status: Acute Urology Consult Note HPI Date Seen: 01/04/23 Time Seen: 09:00 Requesting Physician: Drew Funez MD Primary Care Provider: Shari Stein DO Consult Narrative Reason for consult: bilateral stents/pyelitis Narrative: Ignacia Núñez is a 57 year old female who presented to the ER yesterday for worsening nausea and vomiting. She is s/p bilateral stent placement, cystoscopy and bilateral retrograde pyelogram on 12/30/[address] Gutierrez. She was also found to have a sigmoid abscess at that time. Her WBC is 10.1, creatinine is 0.80, UA is suggestive of a UTI, urine cultures are pending at this time. A CT scan was done yesterday in the ER showing bilateral stents in place and a new finding of pyelitis. She denies flank pain, dysuria or fever. She has some mild hematuria, but is otherwise having some lower mild abdominal pain with her nausea and vomiting. Review of Systems Cardiovascular: Cardiovascular: Denies chest pain Respiratory: Respiratory: Reports no additional respiratory complaints Gastrointestinal: Gastrointestinal: Denies abdominal pain, Denies nausea and Denies vomiting PMFSH Past Medical History Medical History Anxiety and depression Bladder prolapse 2005 COVID-19 (~04/2020) Hepatitis C antibody test negative (12/06/07) Surgical History Surgical History H/O dilation and curettage H/O: hysterectomy ANDREEA-BSO 2002 History of bilateral tubal ligation History of bladder surgery History of oophorectomy History of tonsillectomy Status post placement of ureteral stent Family History Family History Father Kidney stones Social History Social History Social History: 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 She lives with her and has 2 children. Code status full code Smoking status: Never smoker Alcohol intake: never Drinks per week: 1 Substance use: never Lack of Transportation: No Lack of Food: Never True Current Housing: I Have Housing Concerned About Future Housing: No Difficulty Paying Gas/Electric Bills: No Difficulty Paying for Meds: No Currently Unemployed: No Education: High School Diploma/GED Difficulty w/ Childcare or Family Care: No Gender identity (if verbalized by the patient): Female Spiritual care concerns: No Meds Home Medications and Allergies Home Medications Medication Instructions Recorded Confirmed Type amoxicillin 875 mg-potassium 1 tablet PO Q12H #20 tabs 01/02/23 01/03/23 Rx clavulanate 125 mg tablet Allergies Allergy/AdvReac Type Severity Reaction Status Date / Time No Known Allergies Allergy Verified 12/30/22 11:36 Vital Signs Vital Signs - 24 hr 01/03/23 15:49 01/03/23 19:16 01/03/23 19:53 Temperature Pulse Rate 55 L 69 Respiratory Rate 18 18 Blood Pressure 100/55 L 129/73 Pulse Oximetry 99 Oxygen Delivery Room Air 01/03/23 20:06 01/03/23 22:00 04
[2023-01-04 14:00] VITALS: BP 116/68; PULSE 72; RESP 16; TEMP 36.3; O2SAT 98
[2023-01-04] MEDS: HYDROcodone/acetaminophen (*CRX) 5-325 MG TABLET 1 TAB PO (14:56)
[2023-01-04 20:00] VITALS: PULSE 72; RESP 16; O2SAT 98
[2023-01-04 21:57] VITALS: BP 123/70; PULSE 67; RESP 18; TEMP 36.6; O2SAT 97
[2023-01-05] MEDS: PIPERACILLN/TAZ 3.375GM/NS50ML 3.375 GM/50 ML BAG IVPB ×4 (03:00→20:32)
[2023-01-05 05:39] LABS: Hematocrit 37.5 % (37.0-47.0); Hemoglobin 12.1 g/dL (12.0-15.0); Mean Corpuscular HGB Conc 32.3 g/dl (32-36); Mean Corpuscular Hemoglobin 27.4 pg (26-34); Mean Platelet Volume 9.5 fl (7.4-10.4); Platelet Count Result 466 k/mm3 (150-375); Red Blood Count 4.41 M/mm3 (4.2-5.4); Red Cell Distribution Width 12.8 % (11.5-14.5)
[2023-01-05 05:44] LABS: Anion Gap 3 mmol/L (8-16); Blood Urea Nitrogen 10 mg/dL (7-17); Calcium 10.2 mg/dL (8.4-10.2); Carbon Dioxide 31 mmol/L (22-30); Chloride 104 mmol/L (98-107); Estimated CRCL calculation 73 ml/min; Estimated Glomerular Filt Rate > 60; Glucose 101 mg/dL (65-110); Potassium 3.7 mmol/L (3.4-5.0); Sodium 138 mmol/L (137-145)
[2023-01-05 06:00] VITALS: BP 120/65; PULSE 60; RESP 18; TEMP 36.6; O2SAT 99
--- NOTE | 2023-01-05 07:57 | WPDUROPN2 ---
Progress Note: A&P Assessment and Plan (1) Ureterolithiasis: Code(s): N20.1 - Calculus of ureter Status: Acute Assessment and Plan: Patient has 2 distal left ureteral stones which will require ureteroscopy with holmium laser stone extractions. She also has a right renal pelvic stone which will require lithotripsy. Awaiting urine culture. Will coordinate surgery once urine culture negative. Can be discharged home from urologic standpoint when medically stable. (2) Abscess of sigmoid colon due to diverticulitis: Code(s): K57.20 - Diverticulitis of large intestine with perforation and abscess without bleeding Status: Acute Assessment and Plan: Per General surgery Subjective Subjective Date/Time Seen: 01/05/23 07:57 Interval history: Overall doing well. Does appear to have some discomfort from the ureteral stents. Will make sure she is on anticholinergics. Review of Systems Review of Systems: All systems reviewed & are unremarkable except as noted in HPI and below Exam Const: General: cooperative and no acute distress Resp: Effort & Inspection: normal respiratory effort Cardio: Rate: regular rate Rhythm: regular rhythm Objective Data Vital Signs Vital Signs: Vital Signs - 24 hr 01/04/23 08:00 01/04/23 11:23 01/04/23 14:00 Temperature 36.3 C L Pulse Rate 72 Respiratory Rate 16 Blood Pressure 116/68 Pulse Oximetry 98 98 Oxygen Delivery Room Air Room Air 01/04/23 20:00 01/04/23 21:57 01/05/23 06:00 Temperature 36.6 C 36.6 C Pulse Rate 72 67 60 Respiratory Rate 16 18 18 Blood Pressure 123/70 120/65 Pulse Oximetry 98 97 99 Oxygen Delivery Room Air Intake/Output Intake/Output: Intake & Output 01/02/23 01/03/23 01/04/23 01/05/23 23:59 23:59 23:59 23:59 Intake Total 1100 1620 50 Output Total 900 Balance 1100 720 50 Meds/Results Medications: Active Medications Generic Name Dose Route Start Last Admin Trade Name Freq PRN Reason Stop Dose Admin Acetaminophen 650 mg 01/04/23 09:40 Acetaminophen 325 Mg Tablet PO Q6H PRN Mild Pain (1-3) or Fever Hydrocodone Bitart/Acetaminophen 1 tab 01/04/23 09:40 01/04/23 14:56 Hydrocodone/Acetaminophen (*Crx) 5-325 Mg Tablet PO 1 tab Q4H PRN Administration Pain Rated 4-6 Hydrocodone Bitart/Acetaminophen 1 tab 01/04/23 09:40 Hydrocodone/Acetaminophen (*Crx) 10-325 Mg Tablet PO Q6H PRN Pain Rated 7-10 Enoxaparin Sodium 40 mg 01/05/23 09:00 Enoxaparin 40 Mg/0.4 Ml Syringe SUB-Q DAILY LITTLE Piperacillin/Tazobactam/Dextrose 3.375 gm in 50 mls @ 100 mls/hr 01/03/23 21:00 01/05/23 03:30 Zosyn 3.375 Gm/Ns 50 Ml IVPB Infused Q6H LITTLE Infusion Morphine Sulfate 4 mg 01/03/23 15:49 01/04/23 08:32 Morphine Sulfate (*Crx) 4 Mg/Ml Inj IV PUSH 4 mg Q2H PRN Administration Pain Rated 7-10 Ondansetron HCl 4 mg 01/03/23 15:49 Ondansetron Inj 4 Mg/2 Ml Vial IV PUSH Q4H PRN Nausea Radiology Results: ITS Impressions Abdomen/Pelvis CT 01/03/23 13:46 IMPRESSION: 1. Acute sigmoid diverticulitis with 1.6 x 1.1 cm perisigmoid abscess with interval improvement. 2. Bilateral pyelitis. 3. Stones in the right kidney and distal left ureter with bilateral internal ureteral stents in expected positions. Labs Labs: Laboratory Results - last 24 hr 01/04/23 01/05/23 05:30 05:00 WBC 8.0 RBC 4.41 Hgb 12.1 Hct 37.5 MCV 85.0 MCH 27.4 MCHC 32.3 RDW 12.8 Plt Count 466 H MPV 9.5 Sodium 138 Potassium 3.7 Chloride 104 Carbon Dioxide 31 H Anion Gap 3 L BUN 10 Creatinine 0.70 Estim Creat Clear Calc 73 Estimated GFR > 60 Glucose 101 Calcium 10.2 Total T3 1.51
--- NOTE | 2023-01-05 08:27 | WPDPN ---
Progress Note: A&P Assessment and Plan (1) Abscess of sigmoid colon due to diverticulitis: Code(s): K57.20 - Diverticulitis of large intestine with perforation and abscess without bleeding Status: Acute Assessment and Plan: Patient admitted on 12/30/2022 for abdominal pain found to have acute sigmoid diverticulitis with a 4.1 cm abscess adjacent to the distal sigmoid colon. She was treated IV antibiotics. Given that the abscess was at the threshold for drain placement, was felt patient could be treated conservatively with IV antibiotics. She was NPO initially before starting clear liquid diet. Diet was advanced and she tolerated this well. She was discharged home on 01/02 on Augmentin. Patient returns 24 hours later due to increasing abdominal pain. Repeat CT of the abdomen shows acute sigmoid diverticulitis with a 1.6 cm perisigmoid abscess. IV antibiotics in the form of Zosyn were resumed. She had a mild leukocytosis with white count of 12.4 but this has normalized. General surgeon consulted. Diet advanced per their recommendations. Appreciate General surgery input. Home when okay with others (2) Ureterolithiasis: Code(s): N20.1 - Calculus of ureter Status: Acute Assessment and Plan: On her original admission, CT scan also showed a 1.5 cm distal left ureteral stone with moderate to severe left hydroureteronephrosis. She also had a 1.2 cm stone in the right renal pelvis without hydronephrosis. She was seen by Urology and underwent cystoscopy with bilateral ureteral stent placement on 12/30/2022. Urine and blood cultures were negative (UCx was positive for pansensitive EColi on 12/22/22). CT scan of the abdomen on readmission shows bilateral pyelitis. Stones noted without change and stents in expected positions. Repeat cultures obtained. Urology has been consulted. Continue IV antibiotics. Continue current analgesics and antiemetics. Follow up on culture results. (3) Pyelitis: Code(s): N12 - Tubulo-interstitial nephritis, not specified as acute or chronic Status: Acute Assessment and Plan: As above Plan DVT prophylaxis -Lovenox code status-full Subjective Date/time seen: 01/05/23 08:27 Interval history: 57yo female with anxiety, depression and was recently hospitalized for diverticulitis with abscess and ureterolithiasis requiring stent returned after 1 day with complaints of nausea, vomiting with increasing abdominal pain. Assuming care. Chart reviewed. Patient complains right low back pain. Minimal lower abdominal pain at this time. She is voiding frequently. No bowel movements for the past 2 days. She is passing flatus. No chest pain or shortness of breath. Nausea has improved. Exam Narrative: AF 98.0 120/65 60 18 99% ra Gen - NARDLying semi recumbent in bed Chest - CTA bilaterally, nml RR CV - RRR S1/S2 Abd - soft. Nondistended. Minimal if any lower abdominal tenderness. No guarding. Ext - No pedal edema Psych - normal mood. Flat affect. Skin - Warm and dry Objective Data Vital Signs Vital Signs: Vital Signs - 24 hr 01/04/23 11:23 01/04/23 14:00 01/04/23 20:00 Temperature 97.3 F L Pulse Rate 72 72 Respiratory Rate 16 16 Blood Pressure 116/68 Pulse Oximetry 98 98 98 Oxygen Delivery Room Air Room Air 01/04/23 21:57 01/05/23 06:00 Temperature 98 F 98 F Pulse Rate 67 60 Respiratory Rate 18 18 Blood Pressure 123/70 120/65 Pulse Oximetry 97 99 Oxygen Delivery Intake/Output Intake/Output: Intake & Output 01/02/23 01/03/23 01/04/23 01/05/23 23:59 23:59 23:59 23:59 Intake Total 1100 1620 50 Output Total 900 Balance 1100 720 50 Meds/Results Medications: Active Medications Generic Name Dose Route Start Last Admin Trade Name Freq PRN Reason Stop Dose Admin Acetaminophen 650 mg 01/04/23 09:40 Acetaminophen 325 Mg Tablet PO Q6H PRN Mild Pain (1-3) or F
--- NOTE | 2023-01-05 12:16 | PM.PNGS ---
Progress Note: A&P Assessment and Plan (1) Diverticulitis of intestine with abscess: Code(s): K57.80 - Diverticulitis of intestine, part unspecified, with perforation and abscess without bleeding Status: Acute Assessment and Plan: Abdominal pain improving and WBC normalized. Nausea/vomiting has resolved. Advance to a low fiber diet. Continue IV Zosyn. If patient continues to improve, could potentially discharge tomorrow unless Urology wants to proceed with lithotripsy prior to discharge. (2) Nausea & vomiting: Qualifiers: Vomiting type: unspecified Qualified Code(s): R11.2 - Nausea with vomiting, unspecified Code(s): R11.2 - Nausea with vomiting, unspecified Status: Acute Assessment and Plan: Resolved. No further nausea or vomiting since admission. (3) Pyelitis: Code(s): N12 - Tubulo-interstitial nephritis, not specified as acute or chronic Status: Acute (4) Ureterolithiasis: Code(s): N20.1 - Calculus of ureter Status: Acute (5) Status post placement of ureteral stent: Code(s): Z96.0 - Presence of urogenital implants Status: Acute Plan I have discussed the patient's case and plan of care with Dr. Martinez. Subjective Subjective Date/Time Seen: 01/05/23 11:16 Patient reports: no new complaints, feels better, pain is less, flatus, no bowel movement (last BM 2 days ago) and afebrile Interval history: Patient reports feeling a little better today. She believes her LLQ abdominal pain has improved and she has not required any Morphine since early yesterday morning and has not had any [place] since yesterday afternoon. No more nausea or vomiting since admission. She also reports left lower back pain that was a sharp stabbing pain earlier this morning, but resolved spontaneously. Review of Systems Review of Systems: ROS unchanged Exam Const: General: no acute distress Orientation/consciousness: patient oriented x3 GI: Inspection: non-distended GI Palp: Yes Soft to palpation, No Tenderness to palpation present (GI), No Guarding due to palpation present (GI) and No Rebound tenderness present Auscultation: normal bowel sounds Extrem: General: no calf tenderness and no edema Psych: Insight: Good insight present (Psych) Judgement: Good judgement present (Psych) Objective Data Vital Signs Vital Signs: Vital Signs - 24 hr 01/04/23 14:00 01/04/23 20:00 01/04/23 21:57 Temperature 97.3 F L 98 F Pulse Rate 72 72 67 Respiratory Rate 16 16 18 Blood Pressure 116/68 123/70 Pulse Oximetry 98 98 97 Oxygen Delivery Room Air 01/05/23 06:00 01/05/23 08:00 Temperature 98 F Pulse Rate 60 Respiratory Rate 18 Blood Pressure 120/65 Pulse Oximetry 99 Oxygen Delivery Room Air Intake/Output Intake/Output: Intake & Output 01/02/23 01/03/23 01/04/23 01/05/23 23:59 23:59 23:59 23:59 Intake Total 1100 1620 290 Output Total 900 Balance 1100 720 290 Meds/Results Medications: Active Medications Generic Name Dose Route Start Last Admin Trade Name Freq PRN Reason Stop Dose Admin Acetaminophen 650 mg 01/04/23 09:40 Acetaminophen 325 Mg Tablet PO Q6H PRN Mild Pain (1-3) or Fever Hydrocodone Bitart/Acetaminophen 1 tab 01/04/23 09:40 01/04/23 14:56 Hydrocodone/Acetaminophen (*Crx) 5-325 Mg Tablet PO 1 tab Q4H PRN Administration Pain Rated 4-6 Hydrocodone Bitart/Acetaminophen 1 tab 01/04/23 09:40 Hydrocodone/Acetaminophen (*Crx) 10-325 Mg Tablet PO Q6H PRN Pain Rated 7-10 Enoxaparin Sodium 40 mg 01/05/23 09:00 01/05/23 09:02 Enoxaparin 40 Mg/0.4 Ml Syringe SUB-Q Not Given DAILY LITTLE Piperacillin/Tazobactam/Dextrose 3.375 gm in 50 mls @ 100 mls/hr 01/03/23 21:00 01/05/23 09:00 Zosyn 3.375 Gm/Ns 50 Ml IVPB 100 mls/hr Q6H LITTLE Administration Miscellaneous Information 1 each 01/05/23 00:01 Oyxbutnin Prn Bladder Scan ? XX 02/04/23 00:00
[2023-01-05 14:00] VITALS: BP 124/72; PULSE 86; RESP 16; TEMP 36.2; O2SAT 99
[2023-01-05 22:00] VITALS: BP 135/77; PULSE 88; RESP 20; TEMP 36.7; O2SAT 100
[2023-01-06] MEDS: PIPERACILLN/TAZ 3.375GM/NS50ML 3.375 GM/50 ML BAG IVPB ×3 (03:01→15:12)
[2023-01-06 06:00] VITALS: BP 130/74; PULSE 84; RESP 16; TEMP 36.7; O2SAT 100
--- NOTE | 2023-01-06 11:30 | PM.PNGS ---
Progress Note: A&P Assessment and Plan (1) Diverticulitis of intestine with abscess: Code(s): K57.80 - Diverticulitis of intestine, part unspecified, with perforation and abscess without bleeding Status: Acute Assessment and Plan: Tolerating a low fiber diet. Not having any abdominal pain or tenderness. Okay to discharge the patient today on a low fiber diet from our standpoint. She could go back home on the Augmentin that she was discharged with last weekend. Follow-up with Dr. Martinez in 2 weeks. (2) Nausea & vomiting: Qualifiers: Vomiting type: unspecified Qualified Code(s): R11.2 - Nausea with vomiting, unspecified Code(s): R11.2 - Nausea with vomiting, unspecified Status: Acute Assessment and Plan: Resolved. (3) Ureterolithiasis: Code(s): N20.1 - Calculus of ureter Status: Acute Assessment and Plan: May stay if urology is wanting to proceed with surgery on this admission. (4) Pyelitis: Code(s): N12 - Tubulo-interstitial nephritis, not specified as acute or chronic Status: Acute (5) Status post placement of ureteral stent: Code(s): Z96.0 - Presence of urogenital implants Status: Acute Plan I have discussed the patient's case and plan of care with Dr. Martinez. Subjective Subjective Date/Time Seen: 01/06/23 11:30 Patient reports: no new complaints, feels better, pain is less, tolerating a regular diet (low fiber), flatus, bowel movement and afebrile Interval history: Patient doing well today. No abdominal pain. Tolerating low fiber diet. Reports 4 loose BMs this morning. No acute events overnight. Review of Systems Review of Systems: All systems reviewed & are unremarkable except as noted in HPI and below Exam Const: General: comfortable and no acute distress Orientation/consciousness: patient oriented x3 GI: Inspection: non-distended GI Palp: Yes Soft to palpation, No Tenderness to palpation present (GI), No Guarding due to palpation present (GI) and No Rebound tenderness present Auscultation: normal bowel sounds Psych: Insight: Good insight present (Psych) Judgement: Good judgement present (Psych) Objective Data Vital Signs Vital Signs: Vital Signs - 24 hr 01/05/23 14:00 01/05/23 22:00 01/06/23 06:00 Temperature 97.2 F L 98.1 F 98.1 F Pulse Rate 86 88 84 Respiratory Rate 16 20 16 Blood Pressure 124/72 135/77 130/74 Pulse Oximetry 99 100 100 Intake/Output Intake/Output: Intake & Output 01/03/23 01/04/23 01/05/23 01/06/23 23:59 23:59 23:59 23:59 Intake Total 1100 1620 1160 580 Output Total 900 1200 1000 Balance 1100 686 -43 -420 Meds/Results Medications: Active Medications Generic Name Dose Route Start Last Admin Trade Name Freq PRN Reason Stop Dose Admin Acetaminophen 650 mg 01/04/23 09:40 Acetaminophen 325 Mg Tablet PO Q6H PRN Mild Pain (1-3) or Fever Hydrocodone Bitart/Acetaminophen 1 tab 01/04/23 09:40 01/04/23 14:56 Hydrocodone/Acetaminophen (*Crx) 5-325 Mg Tablet PO 1 tab Q4H PRN Administration Pain Rated 4-6 Hydrocodone Bitart/Acetaminophen 1 tab 01/04/23 09:40 Hydrocodone/Acetaminophen (*Crx) 10-325 Mg Tablet PO Q6H PRN Pain Rated 7-10 Enoxaparin Sodium 40 mg 01/05/23 09:00 01/06/23 08:54 Enoxaparin 40 Mg/0.4 Ml Syringe SUB-Q Not Given DAILY LITTLE Piperacillin/Tazobactam/Dextrose 3.375 gm in 50 mls @ 100 mls/hr 01/03/23 21:00 01/06/23 09:23 Zosyn 3.375 Gm/Ns 50 Ml IVPB Infused Q6H LITTLE Infusion Morphine Sulfate 4 mg 01/03/23 15:49 01/04/23 08:32 Morphine Sulfate (*Crx) 4 Mg/Ml Inj IV PUSH 4 mg Q2H PRN Administration Pain Rated 7-10 Ondansetron HCl 4 mg 01/03/23 15:49 Ondansetron Inj 4 Mg/2 Ml Vial IV PUSH Q4H PRN Nausea Oxybutynin Chloride 5 mg 01/05/23 08:41 Oxybutynin Chloride 5 Mg Tablet PO TID PRN bladder scan/pain Radiology Results: ITS Impres
[2023-01-06 14:02] VITALS: BP 120/64; PULSE 67; RESP 17; TEMP 36.9; O2SAT 99
--- NOTE | 2023-01-06 16:12 | PM.DS ---
DS: Admitting Diagnosis Discharge Date 01/06/23 Admitting Diagnosis Nausea, vomiting with increasing abdominal pain. DS: Discharge Diagnosis Discharge Diagnosis (1) Abscess of sigmoid colon due to diverticulitis: Code(s): K57.20 - Diverticulitis of large intestine with perforation and abscess without bleeding Status: Acute (2) Ureterolithiasis: Code(s): N20.1 - Calculus of ureter Status: Acute (3) Pyelitis: Code(s): N12 - Tubulo-interstitial nephritis, not specified as acute or chronic Status: Acute DS: Summary Hospital Course Reason for hospitalization: 57yo female with anxiety, depression and was recently hospitalized for diverticulitis with abscess and ureterolithiasis requiring stent returned after 1 day with complaints of nausea, vomiting with increasing abdominal pain. Please see H&P for details. Hospital Course: Patient admitted on 12/30/2022 for abdominal pain found to have acute sigmoid diverticulitis with a 4.1 cm abscess adjacent to the distal sigmoid colon.? She was treated IV antibiotics.? Given that the abscess was at the threshold for drain placement, was felt patient could be treated conservatively with IV antibiotics.? She was NPO initially before starting clear liquid diet.? Diet was advanced and she tolerated this well.? She was discharged home on 01/02 on Augmentin.? Patient returns 24 hours later due to increasing abdominal pain.? Repeat CT of the abdomen shows acute sigmoid diverticulitis with a 1.6 cm perisigmoid abscess.? IV antibiotics in the form of Zosyn were resumed.? She had a mild leukocytosis with white count of 12.4 but this has normalized.? General surgeon consulted.? Diet advanced per their recommendations.? On her original admission, CT scan also showed a 1.5 cm distal left ureteral stone with moderate to severe left hydroureteronephrosis.? She also had a 1.2 cm stone in the right renal pelvis without hydronephrosis.? She was seen by Urology and underwent cystoscopy with bilateral ureteral stent placement on 12/30/2022.? Urine and blood cultures were negative (UCx was positive for pansensitive EColi on 12/22/22).? CT scan of the abdomen on readmission shows bilateral pyelitis.? Stones noted without change and stents in expected positions.? Repeat urine culture obtained but was negative.? Urology consulted with plans to remove stents as outpatient. Patient overall did well and was able to be discharged home on 01/06/23. She has the Augmentin at home. Status at Discharge Cognitive/behavioral status at discharge: Stable Time Spent with Patient Time attestation: Total time spent providing and/or coordinating discharge services: 34 minutes Exam Narrative: AF 98.5 120/64 67 17 99% ra Gen - NARD Chest - CTA bilaterally, nml RR CV - RRR S1/S2 Abd - soft. NT/ND Ext - No pedal edema Psych - normal mood. Skin - Warm and dry Discharge Plan Discharge Attending physician on discharge: Boris Lutz Consulting providers: Porter Gutierrez; Bar Martinez; Shanda Moreland Discharging Clinician: Boris Lutz Anticipated Discharge Date/Time: 01/06/23 16:16 Patient Disposition: Home, Self-Care Activity: as tolerated Diet: low fiber Discharge Instructions: Continue low fiber diet for the next 2 weeks Call the General Surgery office to schedule a follow-up appointment with Dr. Martinez in 2 weeks Please complete your antibiotic course even if you are starting to feel well. Take precautions to avoid falls. Rise slowly from a lying or sitting position. Pause before standing or walking. Contact your doctor or call 911 and come to the Emergency Room if you have fevers or other worrisome symptoms. Avoid NSAIDs (ibuprofen, naproxen, Aleve). Tylenol is safe to take. Follow-up with your primary care provider in 1-2 weeks. Please call for appointment. Follow-up with Urologist. The master scheduler will be calling to sailaja dobson
== END 2023-01-06 18:00 | disposition home or self-care (01) ==
LOC: ANHED 15:48 → ANH3MED 01-04 13:22
PROVIDERS: Emergency Medicine; Nurse Practitioner; Surgery; Admitting Provider Chiropractor; Emergency Provider Physician Assistant; PCP Family Medicine; Visit Provider Internal Medicine
DX: K57.20 Diverticulitis of large intestine with perforation and abscess without bleeding (principal); N20.2 Calculus of kidney with calculus of ureter; N12 Tubulo-interstitial nephritis, not specified as acute or chronic; R11.2 Nausea with vomiting, unspecified; Z96.0 Presence of urogenital implants; K21.9 Gastro-esophageal reflux disease without esophagitis; F41.9 Anxiety disorder, unspecified; F32.A Depression, unspecified; D72.829 Elevated white blood cell count, unspecified; N39.0 Urinary tract infection, site not specified; Z79.891 Long term (current) use of opiate analgesic; Z79.899 Other long term (current) drug therapy; Z87.442 Personal history of urinary calculi; Z86.16 Personal history of COVID-19; Z86.19 Personal history of other infectious and parasitic diseases; Z84.1 Family history of disorders of kidney and ureter
CPT/HCPCS: 36415; 74177; 80048; 80053; 81001; 83605; 83735; 84439; 84443; 84480; 85025; 85027; 87086; 87088; 96361; 96365; 96366; 96367; 96372; 96375; 96376; 99285; A9270; G0378; J0131; J1650; J2270; J2405; J2543; J7030; Q9967

== ENCOUNTER 2023-01-14 01:57 | Day surgery (SDC) | payer BC, SELFPAY ==
[2023-01-07 14:50] VITALS: BMI 29.2
--- NOTE | 2023-01-07 14:57 | PC.NURSE ---
Report to the Outpatient Waiting Room, entrance under the green pavilion located off [facility], at time 10:30 on date 01/14/23. Planned Procedure Time: 12:30. Time changes happen often and if your time is changed the preop area will call you the afternoon before. - You and your visitor will be asked to self-screen and do not enter if you have any COVID symptoms. - A mask is optional within the hospital at this time. Patients may have clear liquids (water, carbonated beverages, clear teas, apple juice) until 3 hours prior to surgery with a maximum of 20 ounces. - No food from midnight until time of surgery Take the following medications with a SIP of water the morning of surgery: ANTIBIOTIC IF STILL TAKING DO NOT STOP ANY OF YOUR OTHER PRESCRIPTION MEDICATIONS PRIOR TO SURGERY?EXCEPT THE FOLLOWING Medications to discontinue per physician: N/A Date to take last dose: N/A Please no make-up, nail vietnamese, hairspray, perfume, deodorant, or body powder the day of surgery. No jewelry (including any body piercings) or valuables the day of surgery, leave them at home. Please take a shower or bath the night before, or the morning of, surgery with an antibacterial soap. Wear comfortable, loose fitting clothing. - Jewelry must be removed prior to entering the operating room. Rings and piercings that are not removed may be cut off. - The hospital will not accept responsibility for valuables. - Please leave all valuables, including medications, at home the day of surgery. If you are going home after surgery, a licensed truck driver supervisor must drive you home. - NO public transportation without another adult if you receive anesthesia. - We recommend that an adult stay with you for 24 hours following discharge. - We also recommend that you do not drive, make important decision, drink alcoholic beverages, or take any drugs that were not prescribed by your health care provider for at least 24 hours after your discharge time. Follow any additional instructions given to you from your surgeon. If you or anyone in your household have experienced Covid symptoms in the past week, please notify your surgeon or the nurse liaison at the phone number below for possible testing. Telephone instructions given to TODD RAMEY and asked if any additional questions and then verbalized understanding. Patient advised to call surgeon office or pre surgery nurse liaison [phone] if any additional questions.
--- NOTE | 2023-01-13 14:20 | WPDANESEPPF ---
Anes - Initial Pre Proc Eval Procedure: Operation Date: 01/14/23 12:30 Proposed Procedures p Right Extracorporeal Shock Wave Lithotripsy - Christo Lopez MD s Left Ureteroscopy, Left Stone Extraction, Left Retrograde Pyelogram, Left Stent Exchange, Possible Holmium Laser - Christo Lopez MD Date/Time: 01/13/23 14:20 Surgeon: Christo Lopez MD Pre Op Diagnosis: Right Renal Stone, Left Ureteral Stones Patient Data Age: 57 Gender: F Height: 1.6 m Weight: 74.85 kg Allergies Allergy/AdvReac Type Severity Reaction Status Date / Time No Known Allergies Allergy Verified 01/14/23 11:31 Home Medications Medication Instructions Recorded Confirmed Type amoxicillin 875 mg-potassium 1 tablet PO Q12H #20 tabs 01/02/23 01/14/23 Rx clavulanate 125 mg tablet Patient hx anesthesia problems: none Family hx anesthesia problems: none Results Review: All pre-operative results and documents have been reviewed as part of the pre-operative evaluation. 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 She lives with her and has 2 children. Code status full code Smoking status: Never smoker Alcohol intake: never Drinks per week: 1 Substance use: never Substance use type: does not use Lack of Transportation: No Lack of Food: Never True Current Housing: I Have Housing Concerned About Future Housing: No Difficulty Paying Gas/Electric Bills: No Difficulty Paying for Meds: No Currently Unemployed: No Education: High School Diploma/GED Difficulty w/ Childcare or Family Care: No Living arrangements: with friend(s) Gender identity (if verbalized by the patient): Female Spiritual care concerns: No Anes - Eval Final PreProcedure Day of Procedure 01/13/23 14:20 Patient weight: obese Heart: regular rate and rhythm Lungs: clear to auscultation Airway: Mallampati scale class II Neurological: alert and oriented Last oral intake: >/= 8 hours ASA classification: II Emergent: no Anesthetic plan: proceed Anesthesia type and monitoring: general LMA and standard monitoring Results Review: All pre-operative results and documents have been reviewed as part of the pre-operative evaluation. Informed Consent: The patient's anesthetic plan and its attendant risks and benefits were discussed with the patient/family/POA. Questions were solicited and answers provided to the satisfaction of the patient/family/POA.
[2023-01-14] VITALS (8 sets, daily range): BP systolic 124–145; BP diastolic 71–91; PULSE 49–68; RESP 9–20; TEMP 36.4–36.8; O2SAT 100
--- NOTE | ~2023-01-14 | XR_ITS ---
EXAMINATION: XR abdomen/kub 1V DATE: 01/14/2023 10:42 INDICATION: Kidney stone. TECHNIQUE: A supine view of the abdomen was obtained. COMPARISON: CT abdomen and pelvis 01/03/2023 FINDINGS: There are no dilated loops of bowel. There are bilateral internal ureteral stent in expecte d positions. There is a 12 mm stone in right kidney. There is a 15 x 6 mm stone in distal left ureter . There are phleboliths in the pelvis. IMPRESSION: 1. Stones in the right kidney and distal left ureter with bilateral internal ureteral stents in expec rob positions. Reviewed, dictated and finalized at location A. IMPRESSION: 1. Stones in the right kidney and distal left ureter with bilateral internal ur eteral stents in expected positions.
--- NOTE | 2023-01-14 06:50 | WPDHPUPDATE1 ---
History and Physical Update Update Date/Time: 01/14/23 06:50 History and Physical has been reviewed, including an updated exam of the patient. There are NO changes in the patient's condition. Risks, benefits, and alternatives have been discussed and questions answered. Patient agrees to proceed with procedure.
[2023-01-14] MEDS: LACTATED RINGERS 1,000 ML 30 ML IV CONT (11:35)
[2023-01-14 12:06] LABS: Prothrombin Time 13.6 Seconds (11.1-14.7)
[2023-01-14 12:07] LABS: Partial Thromboplastin Time 24.2 SECONDS (22.3-36.8)
--- NOTE | 2023-01-14 14:19 | W.PM.PROC2 ---
Procedure Note - Detailed Date of Procedure 01/14/23 Pre-op Diagnosis Right Renal Stone, Left Ureteral Stones Post-op Diagnosis Same Procedure Performed 1. Right ESWL 2. Right ureteral stent removal 3. Left ureteroscopy with stent removal, laser lithotripsy with stone extraction, stent replacement Surgeon Christo Lopez MD Anesthesia General Description of Procedure patient is brought the op suite she has prepped draped in routine sterile fashion while in dorsal lithotomy position after the uneventful induction of a general LMA anesthetic. Proceed with simultaneous procedures consisting of ESWL to a 8 mm stone in her right lower pole calyx. The stone appeared to fracture extremely well so I opted to remove her right ureteral stent. This occurred after just 2000 shocks at a power setting of 3 using the [employer]ier Lithotripter. Simultaneously cystoscopy with left ureteral stent removal was followed by ureteroscopy with laser ablation and dusting fashion using the 200 micron holmium laser fiber. Her large distal ureteral stone was completely abated and irrigated from the ureter. There were no sizable chips left to retrieved. A 4.8 F variable length stent was replaced on the left. She tolerated these procedures well was taken recovery room good condition. Drains Yes Packing No Pathology Yes Complications No immediate complications Condition Stable Disposition PACU
== END 2023-01-14 16:13 | disposition home or self-care (01) ==
PROVIDERS: PCP Family Medicine; Visit Provider Urology
PROC: (CPT 50590; principal; 2023-01-14 12:30)
PROC: (CPT 52352; 2023-01-14 12:30)
DX: N20.2 Calculus of kidney with calculus of ureter (principal); E66.9 Obesity, unspecified; Z68.28 Body mass index [BMI] 28.0-28.9, adult
CPT/HCPCS: 50590; 52356; 36415; 74018; 85610; 85730; C1769; C2617; J1100; J2250; J2405; J2704; J3010; J7120

== ENCOUNTER 2023-01-28 13:12 | Outpatient (CLI) | payer BC, SELFPAY ==
--- NOTE | ~2023-01-28 | XR_ITS ---
EXAMINATION: XR abdomen/kub 1V DATE: 01/28/2023 13:29 INDICATION: Calculus of ureter. TECHNIQUE: A supine view of the abdomen on 2 radiographs was obtained. COMPARISON: CT abdomen and pelvis 01/03/2023 FINDINGS: There are no dilated loops of bowel. There is a left internal ureteral stent in expected po sition. There is a 9 x 3 mm stone or cluster of stones in distal left ureter. IMPRESSION: 1. 9 x 3 mm stone(s) in distal left ureter with left internal ureteral stent in expected position. Reviewed, dictated and finalized at location A.
== END 2023-01-28 13:13 | disposition home or self-care (01) ==
PROVIDERS: PCP Family Medicine; Visit Provider Urology
DX: N20.1 Calculus of ureter (principal)
CPT/HCPCS: 74018

== ENCOUNTER 2023-02-28 00:47 | Day surgery (SDC) | payer BC, SELFPAY ==
[2023-02-15 14:17] VITALS: BMI 29.2
[2023-02-28 11:50] VITALS: BP 136/76; PULSE 70; RESP 18; TEMP 36.4; O2SAT 99
[2023-02-28] MEDS: LACTATED RINGERS 1,000 ML 150 ML IV CONT (11:53)
--- NOTE | 2023-02-28 12:31 | PM.HPGS ---
History of Present Illness History of Present Illness Consent: Risks, benefits, and alternatives have been discussed and questions answered. Patient agrees to proceed with procedure. Chief complaint: hx colon polyps, diverticulitis Narrative: Ignacia Núñez is a 57 year old female Presents for colonoscopy. Patient has a prior history of colon polyps in 1999 18. Patient recently hospitalized in December of this year with diverticulitis. That had time had pericolonic abscess that required drainage. She has received antibiotics and presents today for colonoscopy to assess for residual disease. Patient reports her bowel habits returned to normal. She has no bleeding no ongoing pain. Review of Systems Review of Systems: Review of systems noncontributory. 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 She lives with her and has 2 children. Code status full code Smoking status: Never smoker Alcohol intake: never Drinks per week: 1 Substance use: never Substance use type: does not use Lack of Transportation: No Lack of Food: Never True Current Housing: I Have Housing Concerned About Future Housing: No Difficulty Paying Gas/Electric Bills: No Difficulty Paying for Meds: No Currently Unemployed: No Education: High School Diploma/GED Difficulty w/ Childcare or Family Care: No Living arrangements: with friend(s) Gender identity (if verbalized by the patient): Female Spiritual care concerns: No Meds Home Medications and Allergies Home Medications Medication Instructions Recorded Confirmed Type No Home Medications 02/28/23 02/28/23 History Allergies Allergy/AdvReac Type Severity Reaction Status Date / Time No Known Allergies Allergy Verified 02/28/23 11:49 Vital Signs Vital Signs - 24 hr 02/28/23 11:50 Temperature 97.5 F L Pulse Rate 70 Respiratory Rate 18 Blood Pressure 136/76 Pulse Oximetry 99 Oxygen Delivery Room Air Exam Narrative: Physical exam reveals patient to be alert. Vital signs stable. HEENT exam is unremarkable. Patient is anicteric. Lungs are clear to auscultation and percussion. Heart is without murmur or extra sounds. Abdomen bowel sounds are present soft nontender with no organomegaly. Digital external rectal exam normal. Assessment and Plan Assessment and plan (1) History of colon polyps: Code(s): Z86.010 - Personal history of colonic polyps Status: Acute Assessment and Plan: Patient has a distant history of colon polyps in 2018. Plan for surveillance colonoscopy now. Consider this a 5 year intervals. (2) Diverticulitis of intestine with abscess: Code(s): K57.80 - Diverticulitis of intestine, part unspecified, with perforation and abscess without bleeding Status: Acute Assessment and Plan: Patient had diverticulitis several months ago had pericolonic abscess requiring percutaneous drainage. patient presents today for colonoscopy to assess status of colon. Patient currently followed by both primary care and surgical services. She has completed antibiotics currently pain free.
--- NOTE | 2023-02-28 14:03 | WPDANESEPPF ---
Anes - Initial Pre Proc Eval Procedure: Operation Date: 02/28/23 13:45 Proposed Procedures p Colonoscopy - Craig Moreau MD Date/Time: 02/28/23 14:03 Surgeon: Craig Moreau MD Pre Op Diagnosis: hx colon polyps, diverticulitis Patient Data Age: 57 Gender: F Height: 1.6 m Weight: 74.1 kg Last Vital Signs Temp 97.5 F L 02/28/23 11:50 Pulse 70 02/28/23 11:50 Resp 18 02/28/23 11:50 BP 136/76 02/28/23 11:50 Pulse Ox 99 02/28/23 11:50 O2 Del Method Room Air 02/28/23 11:50 Allergies Allergy/AdvReac Type Severity Reaction Status Date / Time No Known Allergies Allergy Verified 02/28/23 11:49 Home Medications Medication Instructions Recorded Confirmed Type No Home Medications 02/28/23 02/28/23 History Patient hx anesthesia problems: none Family hx anesthesia problems: none Results Review: All pre-operative results and documents have been reviewed as part of the pre-operative evaluation. 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 She lives with her and has 2 children. Code status full code Smoking status: Never smoker Alcohol intake: never Drinks per week: 1 Substance use: never Substance use type: does not use Lack of Transportation: No Lack of Food: Never True Current Housing: I Have Housing Concerned About Future Housing: No Difficulty Paying Gas/Electric Bills: No Difficulty Paying for Meds: No Currently Unemployed: No Education: High School Diploma/GED Difficulty w/ Childcare or Family Care: No Living arrangements: with friend(s) Gender identity (if verbalized by the patient): Female Spiritual care concerns: No Anes - Eval Final PreProcedure Day of Procedure 02/28/23 14:03 Patient weight: normal Heart: regular rate and rhythm Lungs: clear to auscultation Airway: Mallampati scale class II Neurological: alert and oriented Last oral intake: >/= 8 hours ASA classification: II Emergent: no Anesthetic plan: proceed Anesthesia type and monitoring: general GIVS and standard monitoring Results Review: All pre-operative results and documents have been reviewed as part of the pre-operative evaluation. Informed Consent: The patient's anesthetic plan and its attendant risks and benefits were discussed with the patient/family/POA. Questions were solicited and answers provided to the satisfaction of the patient/family/POA.
[2023-02-28] MEDS: SIMETHICONE ORAL SUSPENSION 20 MG/0.3 ML 30 ML BOTTLE 0.6 ML IRRIGATION (14:12)
[2023-02-28 14:21] VITALS: BP 110/69; PULSE 62; RESP 29; O2SAT 100
[2023-02-28 14:31] VITALS: BP 110/69; PULSE 62; RESP 14; O2SAT 100
[2023-02-28 14:41] VITALS: BP 112/60; PULSE 66; RESP 19; O2SAT 100
== END 2023-02-28 14:49 | disposition home or self-care (01) ==
PROVIDERS: PCP Family Medicine; Visit Provider Internal Medicine Gastroenterology
PROC: 0DJD8ZZ Inspection of Lower Intestinal Tract, Via Natural or Artificial Opening Endoscopic (ICD-10-PCS; CPT 45378; principal; 2023-02-28 13:45)
DX: Z09 Encounter for follow-up examination after completed treatment for conditions other than malignant neoplasm (principal); K64.8 Other hemorrhoids; K57.30 Diverticulosis of large intestine without perforation or abscess without bleeding; Z86.010 Personal history of colon polyps; Z87.19 Personal history of other diseases of the digestive system
CPT/HCPCS: 45378; J2704; J7120

== ENCOUNTER → 2023-03-03 13:22 | Outpatient (CLI) | payer BC, SELFPAY ==
--- NOTE | ~2023-03-03 | MM_ITS ---
EXAMINATION: MM screening mima BI w patrick HISTORY: Screening mammogram TECHNIQUE: Craniocaudal and mediolateral oblique 3-D tomosynthesis images were obtained and synthetic 2-D images were generated. CAD analysis was submitted and interpreted. COMPARISON: 09/25/2021, 08/01/2020, 01/19/2019 bilateral screening mammogram examinations BREAST PARENCHYMAL COMPOSITION: There are scattered areas of fibroglandular density. FINDINGS: There is no evidence of suspicious mass, calcification, or architectural distortion to sugg est malignancy in either breast. There has been no suspicious interval change. IMPRESSION: 1. No mammographic evidence of malignancy. 2. Recommend routine screening mammography in one year. BI-RADS Category 1: Negative Reviewed, dictated and finalized at location A.
== END ==
PROVIDERS: PCP Family Medicine; Visit Provider Family Medicine
DX: Z12.31 Encounter for screening mammogram for malignant neoplasm of breast (principal)
CPT/HCPCS: 77063; 77067

== ENCOUNTER 2023-05-30 21:07 | Emergency (ER) | payer BC, SELFPAY ==
[2023-05-30 21:27] VITALS: BP 122/65; PULSE 94; RESP 20; TEMP 36.6; O2SAT 98
[2023-05-30 23:24] VITALS: BP 139/80; PULSE 72; RESP 18; O2SAT 100
--- NOTE | 2023-05-30 23:33 | ED.ALLEREA ---
HPI - Allergic Reaction General Chief complaint: Allergic Reaction Stated complaint: rash to bilateral arms Time Seen by Provider: 05/30/23 22:45 History of Present Illness HPI narrative: Patient presents the emergency department with generalized rash. Symptoms started a couple days ago is a focal area that she thought might be a bug bite. However now diffuse lower extremities upper extremities back and chest. She has been taking Benadryl with minimal improvement. Took a shower tonight with worsening itching afterwards. Denies all other systems including chest pain shortness of breath and difficulty swallowing Related Data Allergies Allergy/AdvReac Type Severity Reaction Status Date / Time No Known Allergies Allergy Verified 05/30/23 21:31 Review of Systems Review of Systems: Review of systems negative except what is documented in the [facility] Past Medical History Medical History Anxiety and depression Bladder prolapse 2004 COVID-19 (~04/2020) Hepatitis C antibody test negative (12/06/07) Surgical History Surgical History H/O dilation and curettage H/O: hysterectomy ANDREEA-BSO 2002 History of bilateral tubal ligation History of bladder surgery History of oophorectomy History of tonsillectomy Status post placement of ureteral stent Family History Family History Father Kidney stones Social History Social History Social History: 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 She lives with her and has 2 children. Code status full code Smoking status: Never smoker Alcohol intake: never Drinks per week: 1 Substance use: never Substance use type: does not use Lack of Transportation: No Lack of Food: Never True Current Housing: I Have Housing Concerned About Future Housing: No Difficulty Paying Gas/Electric Bills: No Difficulty Paying for Meds: No Currently Unemployed: No Education: High School Diploma/GED Difficulty w/ Childcare or Family Care: No Living arrangements: with friend(s) Gender identity (if verbalized by the patient): Female Spiritual care concerns: No Exam Narrative: GENERAL: Well-appearing, well-nourished, and in no acute distress. HEAD: Normocephalic, atraumatic. EYES: PERRLA and EOMI. ENT: Nares clear, no rhinorrhea or epistaxis. Mucous membranes moist. NECK: Supple. CHEST: Clear to auscultation. No respiratory distress. HEART: Regular rate and rhythm. ABDOMEN: Soft, nontender, nondistended. EXTREMITIES: Normal range of motion. No edema. SKIN: Warm, dry, diffuse rash NEURO: No focal deficits. Alert and oriented x3. PSYCH: Normal mood and affect. Course Course Emergency Course: Skin dry with erythematous macular erythematous itching rash. Unclear etiology. Steroids and Pepcid added. Will DC to home with p.o. steroids and Pepcid and as needed Benadryl. Vital Signs Vital signs: Vital Signs Temperature 36.6 C 05/30/23 21:27 Pulse Rate 94 05/30/23 21:27 Respiratory Rate 20 05/30/23 21:27 Blood Pressure 122/65 05/30/23 21:27 Pulse Oximetry 98 05/30/23 21:27 Oxygen Delivery Room Air 05/30/23 21:27 Temperature 36.6 C 05/30/23 21:27 Pulse Rate 72 05/30/23 23:24 Respiratory Rate 18 05/30/23 23:24 Blood Pressure 139/80 05/30/23 23:24 Pulse Oximetry 100 05/30/23 23:24 Oxygen Delivery Room Air 05/30/23 23:23 Discharge Plan Discharge Clinical Impression: Dermatitis Patient Disposition: Home, Self-Care Condition: Stable Instructions: Acute Rash (ED) Additional Instructions: Avoid heat Ice packs for areas that are very itchy Steroids as prescribed Pepcid for next 7 days Benadryl as needed every 6-[address] itching [address] not drive or wo
[2023-05-31] MEDS: predniSONE 20 MG TABLET 60 MG PO (00:05)
[2023-05-31] MEDS: FAMOTIDINE 20 MG TABLET PO (00:05)
[2023-05-31] MEDS: EUCERIN CREAM 120 GM JAR 1 APPLIC TOPICAL (00:05)
== END 2023-05-31 00:49 | disposition home or self-care (01) ==
LOC: ANHED 23:55
PROVIDERS: Emergency Provider Emergency Medicine; PCP Family Medicine
DX: L30.9 Dermatitis, unspecified (principal); Z86.16 Personal history of COVID-19; Z90.710 Acquired absence of both cervix and uterus; Z90.722 Acquired absence of ovaries, bilateral; Z90.79 Acquired absence of other genital organ(s)
CPT/HCPCS: 99283; A9270; J7512

== ENCOUNTER 2024-04-04 12:26 | Outpatient (CLI) | payer BC, SELFPAY ==
--- NOTE | ~2024-04-04 | US_ITS ---
EXAMINATION: US soft tissue head and neck DATE: 04/04/2024 12:50 INDICATION: Increased parathyroid hormone TECHNIQUE: Multiple grayscale and Doppler ultrasound images of the lower neck of the thyroid were obt ained. COMPARISON: None FINDINGS: The right thyroid lobe measures 5.4 x 1.7 x 1.8 cm. The left thyroid lobe measures 4.6 x 1.4 x 1.6 cm . Along the posterior margin of the inferior right thyroid lobe, unclear within the thyroid or periph eral is a wider than tall 2.6 x 0.9 x 1.0 cm very hypoechoic nodule with smooth margins and without e chogenic foci (TI-RADS 4, moderately suspicious , FNA if >=1.5 cm, annual followup is >=1 cm). There are multiple similar-appearing very hypoechoic nodules with smooth margins throughout both thyroid lo bes, many with internal echogenic foci. (TI-RADS 5, highly suspicious , FNA if >=1.0 cm, annual follo wup is >0.5 cm). The largest on both the left and right measuring 11 mm. IMPRESSION: 1. Multinodular goiter with multiple similar-appearing TI RADS 5 nodules the largest in both the left and right thyroid lobes measuring 11 mm. Would recommend ultrasound-guided biopsy of the larger of t hese 2 nodules and reassessment at the time of biopsy. 2. 2.6 cm nodule along the inferior right thyroid lobe which could represent a TI RADS 4 nodule [facility]-guided biopsy would be recommended. There is however also potentially peripheral to t he thyroid lobe which would be more consistent with a parathyroid adenoma which could nonetheless be also biopsied as clinically indicated. Reviewed, dictated and finalized at location A. IMPRESSION: 1. Multinodular goiter with multiple similar-appearing TI RADS 5 nodules the la rgest in both the left and right thyroid lobes measuring 11 mm. Would recommend ultrasound-guided biopsy of the larger of these 2 nodules and reassessment at the time of biopsy. 2. 2.6 cm nodule along the inferior right thyroid lobe which could represent a TI RADS 4 nodule for which ultrasound-guided biopsy would be recommended. There is however also potentially peripheral to the thyroid lobe which would be more consistent with a parathyroid adenoma which could nonetheless be also biopsied as clinically indicated.
== END 2024-04-04 12:27 ==
LOC: GOSHIMG 12:27
PROVIDERS: PCP Family Medicine; Visit Provider Nurse Practitioner
DX: R79.89 Other specified abnormal findings of blood chemistry (principal); E04.2 Nontoxic multinodular goiter
CPT/HCPCS: 76536

== ENCOUNTER 2024-04-10 10:56 | Outpatient (NON) | payer BC, SELFPAY ==
[2024-04-13 11:34] LABS: Total Volume 1050 mL
== END 2024-04-10 10:57 | disposition home or self-care (01) ==
LOC: ANHGOSHLAB 10:57
PROVIDERS: PCP Family Medicine; Visit Provider Nurse Practitioner
DX: E83.52 Hypercalcemia (principal); R79.89 Other specified abnormal findings of blood chemistry
CPT/HCPCS: 82340

== ENCOUNTER 2024-04-25 12:19 | Outpatient (CLI) | payer BC, SELFPAY ==
--- NOTE | ~2024-04-25 | MM_ITS ---
EXAMINATION: MM screening mima BI w patrick HISTORY: Screening TECHNIQUE: Craniocaudal and mediolateral oblique 3-D tomosynthesis images were obtained and synthetic 2-D images were generated. CAD analysis was submitted and interpreted. COMPARISON: Comparison to multiple prior studies sequentially, with oldest reviewed study dated 12/29. BREAST PARENCHYMAL COMPOSITION: Not dense: There are scattered areas of fibroglandular density. FINDINGS: There is a developing asymmetry in the upper outer quadrant of the left breast. The right b reast is stable without evidence for malignancy IMPRESSION: 1. Developing left breast asymmetry. 2. Additional mammographic views and possible breast ultrasound are recommended. BI-RADS Category 0: Incomplete: Needs additional imaging evaluation. Reviewed, dictated and finalized at location B. IMPRESSION: 1. Developing left breast asymmetry. 2. Additional mammographic views and possible breast ultrasound are recommended . BI-RADS Category 0: Incomplete: Needs additional imaging evaluation.
== END 2024-04-25 12:20 ==
PROVIDERS: PCP Nurse Practitioner; Visit Provider Nurse Practitioner
DX: Z12.31 Encounter for screening mammogram for malignant neoplasm of breast (principal); R92.8 Other abnormal and inconclusive findings on diagnostic imaging of breast
CPT/HCPCS: 77063; 77067

== ENCOUNTER 2024-05-02 12:40 | Outpatient (CLI) | payer BC, SELFPAY ==
--- NOTE | ~2024-05-02 | US_ITS ---
EXAMINATION: 1. US FNA w image guidance 2. US FNA additional DATE: 05/02/2024 14:06 INDICATION: Thyroid nodule. TECHNIQUE: The procedure and its benefits and risks were discussed with the patient. Risks specifically discusse d included bleeding. The patient verbalized understanding of the risks and agreed to proceed. The nec k was prepped and draped in the usual sterile manner. 1% lidocaine was used for local anesthesia. 6 passes were made with a 25G needle into the lesion in superficial right thyroid lobe under ultrasoun d guidance. 6 passes were made with a 25-gauge needle into the lesion in the deep right thyroid lobe under ultras ound guidance. There were no immediate complications. FINDINGS: Grayscale ultrasound images demonstrate needles advanced into a 1.1 cm nodule in superficial right th yroid lobe for biopsy. Grayscale ultrasound images demonstrate no evidence of mass into a 2.6 cm nodu le in deep right thyroid lobe for biopsy. IMPRESSION: 1. Ultrasound-guided fine needle aspiration of a 1.1 cm nodule in superficial right thyroid lobe. 2. Ultrasound-guided fine needle aspiration of a 2.6 cm nodule in deep right thyroid lobe. Reviewed, dictated and finalized at location A. IMPRESSION: 1. Ultrasound-guided fine needle aspiration of a 1.1 cm nodule in superficial right thyroid lobe. 2. Ultrasound-guided fine needle aspiration of a 2.6 cm nodule in deep right th yroid lobe.
== END 2024-05-02 12:41 | disposition home or self-care (01) ==
LOC: ANHIMG 12:47
PROVIDERS: PCP Nurse Practitioner; Visit Provider Nurse Practitioner
DX: E04.1 Nontoxic single thyroid nodule (principal); E21.5 Disorder of parathyroid gland, unspecified
CPT/HCPCS: 10005; 10006; 88108; 88172; 88173; 88305

== ENCOUNTER 2024-05-09 09:35 | Outpatient (CLI) | payer BC, SELFPAY ==
--- NOTE | ~2024-05-09 | MMUS_ITS ---
EXAMINATION: MM diagnostic mima LT w patrick, US breast LT limited HISTORY: Follow-up left breast asymmetry TECHNIQUE: Additional 3-D tomosynthesis images of the left breast were performed and synthetic 2-D im ages were generated. CAD analysis was submitted and interpreted. High resolution Limited left breast ultrasound was performed. COMPARISON: Comparison to multiple prior studies sequentially, with oldest reviewed study dated 12/29. BREAST PARENCHYMAL COMPOSITION: Not dense: There are scattered areas of fibroglandular density. FINDINGS: MAMMOGRAPHIC FINDINGS: Focal asymmetry is less dense with spot compression and mediolateral views and is located in the uppe r outer quadrant posteriorly. No suspicious calcifications or architectural distortion. ULTRASOUND: Limited left breast ultrasound: Normal heterogeneous echotexture without focal solid or cystic mass. IMPRESSION: 1. Probable benign focal left breast asymmetry without sonographic correlate. 2. Recommend 6 month follow-up diagnostic left mammogram BI-RADS category 3, probably benign findings. Reviewed, dictated and finalized at location B. IMPRESSION: 1. Probable benign focal left breast asymmetry without sonographic correlate. 2. Recommend 6 month follow-up diagnostic left mammogram BI-RADS category 3, probably benign findings.
== END 2024-05-09 09:36 ==
PROVIDERS: PCP Nurse Practitioner; Visit Provider Nurse Practitioner
DX: R92.8 Other abnormal and inconclusive findings on diagnostic imaging of breast (principal)
CPT/HCPCS: 76642; 77061; 77065; G0279

== ENCOUNTER 2024-10-12 09:26 | Outpatient (CLI) | payer BC, SELFPAY ==
--- NOTE | ~2024-10-12 | NM_ITS ---
EXAMINATION: NM parathyroid w imaging DATE: 10/12/2024 13:29 INDICATION: Thyroid adenoma TECHNIQUE: 20.55 mCi Tc99m sestamibi (Cardiolite) was administered by intravenous route. Anterior anjelica ges of the neck were obtained at 10 minutes and 4 hours. COMPARISON: Ultrasound dated 04/04/2024 FINDINGS/IMPRESSION: There is a focus of prominent persistent activity on the delayed images in the area of the inferior r ight thyroid lobe consistent with a parathyroid adenoma. Reviewed, dictated and finalized at location B. SERVICE ASSOCIATE
== END 2024-10-12 09:27 | disposition home or self-care (01) ==
PROVIDERS: PCP Nurse Practitioner; Visit Provider Internal Medicine Endocrinology, Diabetes & Metabolism
DX: R94.6 Abnormal results of thyroid function studies (principal); E21.3 Hyperparathyroidism, unspecified; Z78.0 Asymptomatic menopausal state
CPT/HCPCS: 78070; A9500

== ENCOUNTER 2024-11-09 08:21 | Outpatient (CLI) | payer BC, SELFPAY | END 2024-11-09 08:22 | disposition home or self-care (01) | LOC: MICIMG 08:21 | PROVIDERS: PCP Nurse Practitioner; Visit Provider Nurse Practitioner | DX: R92.8 Other abnormal and inconclusive findings on diagnostic imaging of breast (principal) | CPT/HCPCS: 76642; 77061; 77065; G0279 ==

== ENCOUNTER 2024-11-15 12:49 | Outpatient (CLI) | payer BC, SELFPAY ==
--- NOTE | ~2024-11-15 | DEXA_ITS ---
Bone Density Report Name: NATHALIA RAMEY Age: 59 Sex: Female Ethnicity: White Date of : 1965 Indication: postmenopausal; screening for osteoporosis; hysterectomy; Referring Provider: JESSICA HUTCHINS Study: Bone densitometry was performed. Exam Date: November 15, 2024 Accession number: [id number] Bone Density: Region BMD T-score Z-score Classification AP Spine(L1-L4) 1.049 0.0 1.5 Normal Femoral Neck (Left) 0.736 -1.0 0.3 Normal Total Hip (Left) 0.843 -0.8 0.2 Normal Femoral Neck (Right) 0.745 -0.9 0.4 Normal Total Hip (Right) 0.881 -0.5 0.5 Normal Total Hip Mean 0.862 -0.7 0.4 Normal World Health Organization criteria for BMD impression classify patients as: Normal (T-score at or above -1.0), Osteopenia (T-score between -1.0 and -2.5), or Osteoporosis (T-score at or below -2.5). 10-year Fracture Risk: FRAX not reported because: All T-scores for Spine Total, Hip Total, Femoral Neck at or above -1.0 Clinical Information Provided by Patient: Has used the following medications: Vitamin D Has the following medical conditions: Hysterectomy Patient maximum height was 63 Menopause Age: 39 Does not regularly consume dairy products Drinks caffeinated beverages Onset of menses at age 14 Number of children 2 Impression: The patient has normal bone mass. Discussion: BONE DENSITY IS ABOVE THE MINIMUM DESIRABLE LEVEL AT ALL SKELETAL SITES TESTED. This patient?s bone mineral density is above the minimum desirable level (T-score -1.0 or better) at all sites measured. The patient should follow a healthful lifestyle (good nutrition with adequate calcium and vitamin D, and appropriate weight-bearing exercise). Follow-Up: Consider repeating this study in 5 years or sooner if there is some new clinical indication. Reported by: SUKH on 11/15/2024 1:22:00 PM. Reviewed, dictated and finalized at location [facility]
--- OUTSIDE RECORDS SUMMARY | 2024-11-15 14:05 | XMS_ITS | Patient Health Summary ---
Author Organization [facility] [employer] Address [address] [place] [address] Care Team Providers Care Marketing Sales Manager Name Role Phone Unavailable Primary Care Provider Unavailabl e Note from [facility],non-owned Affiliates and Associated Physician Practices is amultiple site organization consisting of ambulatory clinics and hospital sitesin [place], [place], [place] and [place]. This disclosure is being madepursuant to the Care Everywhere program and may not contain all information available regarding this patient. Last updated 18.[facility] [employer] Allergies No known active allergies Medications * Be aware that medications may not be up to date on this document. Alwaysverify current medications with the patient. * vitamin D, cholecalciferol, 50 MCG (2000 UT) tablet Take 1 (one) tablet by mouth once daily Social History Tobacco Use Types Packs/Day Years Used Date Smoking Tobacco: Never Smokeless Tobacco: Never Alcohol Use Standard Drinks/Week Comments Yes 0 (1 standard drink = 0.6 oz pur e alcohol) 1 A MONTH Sex and Gender Information Value Date Recorded Sex Assigned at Not on file Gender Identity Not on file Sexual Orientation Not on file Last Filed Vital Signs Vital Sign Reading Time Taken Comments Blood Pressure 118/91 11/14/2024 3:50 PM [facility] Pulse 73 11/14/2024 3:50 PM [facility] Temperature 36.6 C (97.9 F) 11/14/2024 3:50 PM [facility] Respiratory Rate 18 11/14/2024 3:50 PM [facility] Oxygen Saturation 100% 11/14/2024 3:50 PM [facility] Inhaled Oxygen Concentration - - Weight 83 kg (183 lb) 11/14/2024 3:50 PM [facility] Height 160 cm (5' 3 ) 11/14/2024 3:50 PM [facility] Body Mass Index 32.42 11/14/2024 3:50 PM [facility] Procedures * TYPE + SCREEN PANEL(Performed 11/14/2024) Performed for Pre-op evaluation * BASIC METABOLIC PANEL (CALCIUM TOTAL)(Performed 11/14/2024) Performed for Pre-op evaluation * CBC W/O DIFFERENTIAL(Performed 11/14/2024) Performed for Pre-op evaluation Results * TYPE + SCREEN PANEL (11/14/2024 4:01 PM [facility]) [facility] Antibody Screen NEG 4:57 PM [facility] BLOOD BANK LAB ABO Rh O POS 11/14/2024 4:57 PM [facility]3] BLOOD BANK LAB Blood Bank BLOOD SPECIMEN / Unknown Lab Venipuncture / Unknown 11/14/2024 4:01 PM [facility] 11/14/2024 4:11 PM [facility] Troy Ohara [employer]ET[employer] ANALYST LAB - BLOOD B ANK ORDERABLES [facility] BLOOD BANK LAB [address] [place] [address], [facility] [phone] * CBC W/O DIFFERENTIAL (11/14/2024 4:01 PM [facility]) [facility] WBC 10.0 4.0 - 10.7 x10E9/L 11/14/2024 4:29 PM [facility] RBC Count 5.14 3.90 - 5.20 x10E12/L 11/14/2024 4:29 PM [facility] Hemoglobin 14.4 11.9 - 15.8 g/dL 11/14/2024 4:29 PM [facility] Hematocrit 43.5 34.8 - 46.1 % 11/14/2024 4:29 PM [facility] MCV 84.6 80.0 - 98.0 fL 11/14/2024 4:29 PM [facility] MCH 28.0 26.7 - 33.6 pg 11/14/2024 4:29 PM [facility] MCHC 33.1 31.7 - 36.3 g/dL 11/14/2024 4:29 PM [facility] RDW-CV 13.0 11.3 - 14.8 % 11/14/2024 4:29 PM [facility] Platelet Count 363 150 - 420 x10E9/L 11/14/2024 4:29 PM [facility] MPV 10.1 7.8 - 11.4 fL 11/14/2024 4:29 PM [facility] Blood BLOOD SPECIMEN / Unknown Lab Venipuncture / Unknown 11/14/2024 4:01 PM [facility] 11/14/2024 4:07 PM [facility] Troy Ohara [employer] MARKET[employer] ANALYST LAB - HEMATOL OGY ORDERABLES [facility] [address] [place] [address], [facility] [phone] * (ABNORMAL) BASIC METABOLIC PANEL (CALCIUM TOTAL) (11/14/2024 4:01 PM [facility]) BUN 16 7 - 26 mg/dL 11/14/2024 4:36 PM [facility] Creatinine 1.03(H) 0.56 - 0.96 mg/dL 11/14/2024 4:36 PM [facility] Sodium 140 136 - 145 mmol/L 11/14/2024 4:36 PM [facility] Potassium 4.0 3.5 - 4.5 mmol/L 11/14/2024 4:36 PM [facility] Chloride 108(H) 98 - 107 mmol/L 11/14/2024 4:36 PM [facility] CO2 26 22 - 29 mmol/L 11/14/2024 4:36 PM [facility] Glucose 86 70 - 99 mg/dL 11/14/2024 4:36 PM [facility] Calcium 10.9(H) 8.4 - 10.2 mg/dL 11/14/2024 4:36 PM [facility] Anion Gap 6 6 - 16 11/14/2024 4:36 PM [facility] BUN/Creatinine Ratio 16 7 - 23 11/14/2024 4:36 PM [facility]ORY [facility] Osmolality Calculated 290 275 - 295 mOsm/kg 11/14/2024 4:36 PM [facility] eGFR by CKD-EPI 62(L) >=90 mL/min/1.7 3 m2 11/14/2024 4:36 PM [facility] Blood BLOOD SPECIMEN / Unknown Lab Venipuncture / Unknown 11/14/2024 4:01 PM [facility] 11/14/2024 4:07 PM [facility] Troy Ohara [employer] MARKETING ANALYST LAB - BEHAVIOR THERAPIST RY ORDERABLES [facility] [address] [place] [address], [facility] [phone]
--- OUTSIDE RECORDS SUMMARY | 2024-11-15 14:05 | XMS_ITS | Referral Summary ---
Author Organization [facility] Address [address] [facility] [place] [address] Care Team Providers Care Morning Show Newscast Producer Name Role Phone Unavailable Primary Care Provider Unavailabl e Source Comments [facility],non-owned Affiliates and Associated Physician Practices is amultiple site organization consisting of ambulatory clinics and hospital sitesin [place], [place], [place] and [place]. This disclosure is being madepursuant to the Care Everywhere program and may not contain all information available regarding this patient. Last updated 18.[facility] Encounters Date Type Department Care Team Description 11/14/2024 3:54 PM AUTO HEADLIGHT MECHANIC - 11/14/2024 11:59 PM AUTO HEADLIGHT MECHANIC Hospital Encounter [facility] OP DRAW STATION [address] [place] [phone] Hussain Colvin MD Discharge Disposition: Home or Self Care 11/14/2024 11:59 PM AUTO HEADLIGHT MECHANIC Anesthesia Event [facility] PHYS ANESTHESIA [address] [place] [phone] Troy Ohara, FABRIC AND ACCESSORIES ESTIMATOR-PAD MACHINE FEEDER 11/14/2024 2:30 PM AUTO HEADLIGHT MECHANIC - 11/14/2024 3:53 PM AUTO HEADLIGHT MECHANIC Hospital Encounter [facility] PAT [address] [place] [phone] Hussain Colvin MD Otolaryngology Discharge Disposition: Home or Self Care 11/14/2024 Travel 11/14/2024 1:30 PM AUTO HEADLIGHT MECHANIC Office Visit [facility] [address] [place] [phone] Hussain Colvin MD Arrived 10/22/2024 Telephone [facility] [address] [place] [phone] Hussain Colvin MD Imaging from Last 3 Months Allergies No known active allergies Medications * Be aware that medications may not be up to date on this document. Alwaysverify current medications with the patient. Medication Sig Dispensed Refills Start Date End Date Status vitamin D, cholecalciferol, 50 MCG (1999) tablet Take 1 (one) tablet by mouth once daily Active Social History Tobacco Use Types Packs/Day Years [...] Comments Blood Pressure 118/91 11/14/2024 3:50 PM AUTO HEADLIGHT MECHANIC Pulse 73 11/14/2024 3:50 PM AUTO HEADLIGHT MECHANIC Temperature 36.6 C (97.9 F) 11/14/2024 3:50 PM AUTO HEADLIGHT MECHANIC Respiratory Rate 18 11/14/2024 3:50 PM AUTO HEADLIGHT MECHANIC Oxygen Saturation 100% 11/14/2024 3:50 PM AUTO HEADLIGHT MECHANIC Inhaled Oxygen Concentration - - Weight 83 kg (183 lb) 11/14/2024 3:50 PM AUTO HEADLIGHT MECHANIC Height 160 cm (5' 3 ) 11/14/2024 3:50 PM AUTO HEADLIGHT MECHANIC Body Mass Index 32.42 11/14/2024 3:50 PM AUTO HEADLIGHT MECHANIC Plan of Treatment Not on file Procedures Procedure Name Priority Date/Time Associated Diagnosis Comments TYPE + SCREEN PANEL STAT 11/14/2024 4 :01 PM AUTO HEADLIGHT MECHANIC Pre-op evaluation BASIC METABOLIC PANEL (CALCIUM TOTAL) STAT 11/14/2024 4:01 PM AUTO HEADLIGHT MECHANIC Pre-op evaluation CBC W/O DIFFERENTIAL STAT 11/14/2024 4:01 PM AUTO HEADLIGHT MECHANIC Pre-op evaluation from Last 3 Months Results * TYPE + SCREEN PANEL (11/14/2024 4:01 PM AUTO HEADLIGHT MECHANIC) Antibody Screen NEG 4:57 PM [facility] BLOOD BANK LAB ABO Rh O POS 11/14/2024 4:57 PM [facility] BLOOD [facility] LAB Blood Bank BLOOD SPECIMEN / Unknown Lab Venipuncture / Unknown 11/14/2024 4:01 PM AUTO HEADLIGHT MECHANIC 11/14/2024 4:11 PM AUTO HEADLIGHT MECHANIC Nutressa A Ohara FABRIC AND ACCESSORIES ESTIMATOR-PAD MACHINE FEEDER LAB - BLOOD B ANK ORDERABLES [facility] BLOOD BANK LAB [address] [place] [address], [facility] [phone] * CBC W/O DIFFERENTIAL (11/14/2024 4:01 PM AUTO HEADLIGHT MECHANIC) WBC 10.0 4.0 - 10.7 x10E9/L 11/14/2024 4:29 PM [facility] RBC Count 5.14 3.90 - 5.20 x10E12/L 11/14/2024 4:29 PM [facility] Hemoglobin 14.4 11.9 - 15.8 g/dL 11/14/2024 4:29 PM [facility] Hematocrit 43.5 34.8 - 46.1 % 11/14/2024 4:29 PM [facility] MCV 84.6 80.0 - 98.0 fL 11/14/2024 4:29 PM [facility] MCH 28.0 26.7 - 33.6 pg 11/14/2024 4:29 PM [facility] MCHC 33.1 31.7 - 36.3 g/dL 11/14/2024 4:29 PM [facility] RDW-CV 13.0 11.3 - 14.8 % 11/14/2024 4:29 PM [facility] Platelet Count 363 150 - 420 x10E9/L 11/14/2024 4:29 PM [facility] MPV 10.1 7.8 - 11.4 fL 11/14/2024 4:29 PM [facility] Blood BLOOD SPECIMEN / Unknown Lab Venipuncture / Unknown 11/14/2024 4:01 PM AUTO HEADLIGHT MECHANIC 11/14/2024 4:07 PM AUTO HEADLIGHT MECHANIC Troy EDMONDSON LAB - HEMATOL OGY ORDERABLES [facility]ORATORY [facility] [address] [place] [address], [facility] [phone] * (ABNORMAL) BASIC METABOLIC PANEL (CALCIUM TOTAL) (11/14/2024 4:01 PM AUTO HEADLIGHT MECHANIC) BUN 16 7 - 26 mg/dL 11/14/2024 4:36 PM [facility] Creatinine 1.03(H) 0.56 - 0.96 mg/dL 11/14/2024 4:36 PM [facility] Sodium 140 136 - 145 mmol/L 11/14/2024 4:36 PM [facility] Potassium 4.0 3.5 - 4.5 mmol/L 11/14/2024 4:36 PM [facility] Chloride 108(H) 98 - 107 mmol/L 11/14/2024 4:36 PM [facility] CO2 26 22 - 29 mmol/L 11/14/2024 4:36 PM [facility] Glucose 86 70 - 99 mg/dL 11/14/2024 4:36 PM [facility] Calcium 10.9(H) 8.4 - 10.2 mg/dL 11/14/2024 4:36 PM [facility] Anion Gap 6 6 - 16 11/14/2024 4:36 PM [facility] BUN/Creatinine Ratio 16 7 - 23 11/14/2024 4:36 PM [facility] Osmolality Calculated 290 275 - 295 mOsm/kg 11/14/2024 4:36 PM [facility] eGFR by CKD-EPI 62(L) >=90 mL/min/1.7 3 m2 11/14/2024 4:36 PM [facility] Blood BLOOD SPECIMEN / Unknown Lab Venipuncture / Unknown 11/14/2024 4:01 PM AUTO HEADLIGHT MECHANIC 11/14/2024 4:07 PM AUTO HEADLIGHT MECHANIC Nutressa A Ohara FABRIC AND ACCESSORIES ESTIMATOR-PAD MACHINE FEEDER LAB - STATEMENT DISTRIBUTION CLERK RY ORDERABLES [facility] [address] [place] [address], [facility] [phone] from Last 3 Months Ignacia Núñez Personal/Famil y Self 1965
--- OUTSIDE RECORDS SUMMARY | 2024-11-15 14:05 | XMS_ITS | Encounter Summary ---
Author Organization [facility] Address [facility] [facility] [place] [address] Care Team Providers Care Customer Support Assistant Name Role Phone Unavailable Primary Care Provider Unavailabl e Reason for Visit * Reason Comments Establish Care hyperparathyroidism Encounter Details Date Type Department Care Team (Late st Contact Info) Description 11/14/2024 1:30 PM HOSPITAL MONITOR Office Visit [facility] - ENT [address] [place] [phone] Hussain Colvin MD [address] [place] [address] [place] [address] Arrived Social History Tobacco Use Types Packs/Day Years Used Date Smoking Tobacco: Never Smokeless Tobacco: Never Alcohol Use Standard Drinks/Week Comments Yes 0 (1 standard drink = 0.6 oz pur e alcohol) 1 A MONTH Sex and Gender Information Value Date Recorded Sex Assigned at Not on file Gender Identity Not on file Sexual Orientation Not on file documented as of this encounter Last Filed Vital Signs Vital Sign Reading Time Taken Comments Blood Pressure 129/83 11/14/2024 2:05 PM HOSPITAL MONITOR Pulse 84 11/14/2024 2:05 PM HOSPITAL MONITOR Temperature - - Respiratory Rate - - Oxygen Saturation - - Inhaled Oxygen Concentration - - Weight 82.1 kg (181 lb) 11/14/2024 2:05 PM HOSPITAL MONITOR Height 160 cm (5' 3 ) 11/14/2024 2:05 PM HOSPITAL MONITOR Body Mass Index 32.06 11/14/2024 2:05 PM HOSPITAL MONITOR documented in this encounter Patient Instructions * Patient Instructions* Ailin Piña MA - 11/14/2024 2:03 PM HOSPITAL MONITOR Thank you for visiting [facility] Otolaryngology - Head & Neck Surgery. We appreciate your confidence in allowing us to participate in your health care. You may receive a survey about your visit with us today. Making our patients happy isn???t just happy talk; it???s ourmission. Please tell us if we made the right impression on you- and how we can serve you better. Please SAVE the information below, it will assist you when it???s time for you to contact us. To MAKE - CHANGE - CANCEL an office appointment If you become ill, need to be seen before your next scheduled appointment, or need to cancel or reschedule an appointment, please call our office at [phone] Tuesday through Tuesday from 8:30 am to4:30 pm. You can also request a routine appointment through your [email or web address] account. Prescription Refills Contact your pharmacy to request all refills. The pharmacy will need to fax the request to us at Please allow a minimum of 48-72 hours for your prescription to be completed. Your pharmacy will notify you when your prescription is ready to be picked up. Medical Emergency / After Hours Contact Information If you have a medical emergency, please call 911 or go to the nearest emergency room. For urgent medical calls, which cannot wait until the office opens, please call the medical exchange at and ask the needle felt making machine operator to page the ENT physician sculpture conservator. *Caller ID blocking service will need to be turned off for your call to be returned. We also specialize in Hearing Aids, Allergy testing, swallowing disorders, voice problems, cancer diagnosis, and so much more. Visit our website at [email or web address] for information about our practice and an interactive health encyclopedia. ITAL MONITOR documented in this encounter Plan of Treatment Not on file documented as of this encounter Visit Diagnoses Not on filedocumented in this encounter
--- OUTSIDE RECORDS SUMMARY | 2024-11-15 14:05 | XMS_ITS | Clinical Summary ---
Author Organization [facility] Address [address] [place] [address] Care Team Providers Care Sld Inclusion Teacher Name Role Phone Unavailable Primary Care Provider Unavailabl e Source Comments [facility],non-owned Affiliates and Associated Physician Practices is amultiple site organization consisting of ambulatory clinics and hospital sitesin [place], [place], [place] and [place]. This disclosure is being madepursuant to the Care Everywhere program and may not contain all information available regarding this patient. Last updated 18.[facility] [employer] Allergies No known active allergies Medications * Be aware that medications may not be up to date on this document. Alwaysverify current medications with the patient. Medication Sig Dispensed Refills Start Date End Date Status vitamin D, cholecalciferol, 50 MCG (1999 [place]) tablet Take 1 (one) tablet by mouth once daily Active Encounters Date Type Department Care Team Description 11/14/2024 11:59 PM SHIPPING MANAGER Anesthesia Event [facility] ANESTHESIA [address] [place] [phone] Troy Ohara APRN-ARMANDO 11/14/2024 3:54 PM SHIPPING MANAGER - 11/14/2024 11:59 PM SHIPPING MANAGER Hospital Encounter [facility] OP DRAW STATION [address] [place] [phone] Hussain Colvin MD Discharge Disposition: Home or Self Care 11/14/2024 2:30 PM SHIPPING MANAGER - 11/14/2024 3:53 PM SHIPPING MANAGER Hospital Encounter [facility] PAT [address] [place] [phone] Hussain Colvin MD Otolaryngology Discharge Disposition: Home or Self Care 11/14/2024 1:30 PM SHIPPING MANAGER Office Visit [facility] [address] [place] [phone] Hussain Colvin MD Arrived 11/14/2024 Travel 10/22/2024 Telephone [facility] [address] [place] [phone] Hussain Colvin MD Imaging from Last 3 Months Social History Tobacco Use Types Packs/Day Years [...] Comments Blood Pressure 118/91 11/14/2024 3:50 PM SHIPPING MANAGER Pulse 73 11/14/2024 3:50 PM SHIPPING MANAGER Temperature 36.6 C (97.9 F) 11/14/2024 3:50 PM SHIPPING MANAGER Respiratory Rate 18 11/14/2024 3:50 PM SHIPPING MANAGER Oxygen Saturation 100% 11/14/2024 3:50 PM SHIPPING MANAGER Inhaled Oxygen Concentration - - Weight 83 kg (183 lb) 11/14/2024 3:50 PM SHIPPING MANAGER Height 160 cm (5' 3 ) 11/14/2024 3:50 PM SHIPPING MANAGER Body Mass Index 32.42 11/14/2024 3:50 PM SHIPPING MANAGER Plan of Treatment Health Maintenance Due Date Last Done Comments COLOGUARD (AGES 45-75) - COL ON CA SCREENING 1965 COLON MONITORING 1964 COLONOSCOPY - COLON CA SCREENING 1964 CT COLONOGRAPHY - COLON CA SCREENING 1965 Colorectal Cancer Screening 1965 FIT - COLON CA SCREENING 1964 FLEX SIG - COLON CA SCREENING 1964 LIPID TESTING 1965 MAMMOGRAM 1965 PAP SMEAR 1964 HIV SCREENING 1979 HEPATITIS C SCREENING 07/11/1982 DTAP/TDAP/TD VACCINES (1 - Tdap) 1983 PNEUMOCOCCAL VACCINE 50+ (1 of 1 - PCV) 2014 ZOSTER VACCINE (1 of 2) 2014 COVID-19 VACCINE (1 - 2023-2 5 season) 2024 INFLUENZA VACCINE (#1) 2024 DEPRESSION SCREENING 09/12/2024 SCREENING FOR DIABETES 11/15/2027 11/14/2024 Respiratory Syncytial Virus (RSV) Vaccine Pt: or over 60 yrs (1 - 1-dose 75+ series) 2039 HEPATITIS B VACCINE Aged Out No longe r eligible based on patient's age to complete this topic HIB VACCINE Aged Out No longer eligi ble based on patient's age to complete this topic HPV VACCINE Aged Out No longer eligi ble based on patient's age to complete this topic MENINGOCOCCAL (Group B) VACCINE Aged Out No longer eligible based on patient's age to complete this topic MENINGOCOCCAL VACCINE Aged Out No ty sarika eligible based on patient's age to complete this topic Procedures Procedure Name Priority Date/Time Associated Diagnosis Comments TYPE + SCREEN PANEL STAT 11/14/2024 4 :01 PM SHIPPING MANAGER Pre-op evaluation BASIC METABOLIC PANEL (CALCIUM TOTAL) STAT 11/14/2024 4:01 PM SHIPPING MANAGER Pre-op evaluation CBC W/O DIFFERENTIAL STAT 11/14/2024 4:01 PM SHIPPING MANAGER Pre-op evaluation from Last 3 Months Results * TYPE + SCREEN PANEL (11/14/2024 4:01 PM SHIPPING MANAGER) Antibody Screen NEG 4:57 PM SHIPPING MANAGER [facility] BLOOD [facility] LAB ABO Rh O POS 11/14/2024 4:57 PM SHIPPING MANAGER [facility] BLOOD [facility] LAB Blood Bank BLOOD SPECIMEN / Unknown Lab Venipuncture / Unknown 11/14/2024 4:01 PM SHIPPING MANAGER 11/14/2024 4:11 PM SHIPPING MANAGER Troy Ohara STATION AIR TRAFFIC CONTROL SPECIALIST-BLOCKER AUTOMATIC LAB - BLOOD B ANK ORDERABLES [facility] BLOOD BANK LAB [address] [place] [address], [facility] [phone] * CBC W/O DIFFERENTIAL (11/14/2024 4:01 PM SHIPPING MANAGER) WBC 10.0 4.0 - 10.7 x10E9/L 11/14/2024 4:29 PM [facility] RBC Count 5.14 3.90 - 5.20 x10E12/L 11/14/2024 4:29 PM [facility] Hemoglobin 14.4 11.9 - 15.8 g/dL 11/14/2024 4:29 PM [facility] Hematocrit 43.5 34.8 - 46.1 % 11/14/2024 4:29 PM [facility] MCV 84.6 80.0 - 98.0 fL 11/14/2024 4:29 PM [facility] MCH 28.0 26.7 - 33.6 pg 11/14/2024 4:29 PM [facility] MCHC 33.1 31.7 - 36.3 g/dL 11/14/2024 4:29 PM [facility] RDW-CV 13.0 11.3 - 14.8 % 11/14/2024 4:29 PM [facility] Platelet Count 363 150 - 420 x10E9/L 11/14/2024 4:29 PM [facility] MPV 10.1 7.8 - 11.4 fL 11/14/2024 4:29 PM [facility] Blood BLOOD SPECIMEN / Unknown Lab Venipuncture / Unknown 11/14/2024 4:01 PM SHIPPING MANAGER 11/14/2024 4:[address] [facility] Troy Ohara STATION AIR TRAFFIC CONTROL SPECIALIST-BLOCKER AUTOMATIC LAB - HEMATOL OGY ORDERABLES [address] [address], [facility] [phone] * (ABNORMAL) BASIC METABOLIC PANEL (CALCIUM TOTAL) (11/14/2024 4:[address] [facility]) BUN 16 7 - 26 mg/dL 11/14/2024 4:36 PM [facility] Creatinine 1.03(H) 0.56 - 0.96 mg/dL 11/14/2024 4:36 PM [facility] Sodium 140 136 - 145 mmol/L 11/14/2024 4:36 PM [facility] Potassium 4.0 3.5 - 4.5 mmol/L 11/14/2024 4:36 PM [facility] Chloride 108(H) 98 - 107 mmol/L 11/14/2024 4:36 PM [facility] CO2 26 22 - 29 mmol/L 11/14/2024 4:36 PM [facility] Glucose 86 70 - 99 mg/dL 11/14/2024 4:36 PM [facility] Calcium 10.9(H) 8.4 - 10.2 mg/dL 11/14/2024 4:36 PM [facility] Anion Gap 6 6 - 16 11/14/2024 4:36 PM [facility] BUN/Creatinine Ratio 16 7 - 23 11/14/2024 4:36 PM [facility] Osmolality Calculated 290 275 - 295 mOsm/kg 11/14/2024 4:36 PM [facility] eGFR by CKD-EPI 62(L) >=90 mL/min/1.7 3 m2 11/14/2024 4:36 PM [facility] Blood BLOOD SPECIMEN / Unknown Lab Venipuncture / Unknown 11/14/2024 4:01 PM SHIPPING MANAGER 11/14/2024 4:[address] [facility] Troy Ohara STATION AIR TRAFFIC CONTROL SPECIALIST-BLOCKER AUTOMATIC LAB - IRRIGATION DISTRICT MANAGER RY ORDERABLES [facility] [address] [place] [address], [facility] [phone] from Last 3 Months Ignacia Núñez Personal/Famil y Self 1965
--- OUTSIDE RECORDS SUMMARY | 2024-11-15 14:05 | XMS_ITS | Encounter Summary ---
Author Organization [facility] Address [address] [place] [address] Care Team Providers Care Coke Crusher Operator Name Role Phone Unavailable Primary Care Provider Unavailabl e Encounter Details Date Type Department Care Team (Late st Contact Info) Description 11/14/2024 11:59 PM PRIZE COORDINATOR Anesthesia Event [facility] ANESTHESIA [address] [place] [address] Troy Ohara APRN-CNP [address] [facility] [place] [address] Anesthesia Record Procedure Summary Procedure Name Responsible Anesthesiologist Anesthesia Start Time Anesthesia Stop Time parathyroidectomy Events No events on file. Meds * Agents No agents on file. * Blood No blood administrations on file. Lines, Drains, and Airways No LDAs on file. documented in this encounter Social History Tobacco Use Types Packs/Day Years Used Date Smoking Tobacco: Never Smokeless Tobacco: Never Alcohol Use Standard Drinks/Week Comments Yes 0 (1 standard drink = 0.6 oz pur e alcohol) 1 A MONTH Sex and Gender Information Value Date Recorded Sex Assigned at Not on file Gender Identity Not on file Sexual Orientation Not on file documented as of this encounter Progress Notes * Troy Ohara APRN-CNP - 11/14/2024 3:41 PM CST Images from the original note were not included. ANESTHESIA PREOPERATIVE EVALUATION NOTE Procedure: parathyroidectomy Vitals: Patient Vitals for the past 6 hrs: BP Temp Pulse Resp SpO2 11/14/24 1550 118/91 97.9 ??F (36.6 ??C) 73 18 100 % LMP: No LMP recorded. OB Status: unknown ANESTHESIA PRE-EVALUATION NOTE History of Present Illness: 59 years old female with a PMhx of Obesity (BMI 32), Kidney Stones, Diverticulosis, hyperparathyroidism with hypercalciuria, kidney stones. Reported h/o hypercalcemia since 2022. 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 Also has hx of 1.1cm superficial R lobe thyroid nodule per US report. Had recent NM-parathyroid scan, although report not available for review today. Also reports fatigue, mood changes/depressed mood, stomach pain. Denies blood thinners, problems with anesthesia, family hx clotting disorders. Denies problems withher voice/breathing. Denies h/o head or neck surgery (other than tonsillectomy). (Per ENT) She is scheduled for a Parathyroidectomy. The patient is a current non-smoker. Physical Exam: Orientation X3 Airway/Mallampati Score: II Mouth Opening Distance: 2.5 fingerwidths Neck ROM: full TM Distance: > 3 FB Teeth: dentures/partials lower and dentures/partials upper Heart: normal - S1 S2 Lungs: clear to ausculation bilaterally Abdomen Exam: normal Physical Exam Additional Comments: She can walk 4 blocks and up 2 flights of steps without cp or sob She works out twice a week for 30 minutes walking on treadmill and walks 100 lb dog daily Review of Systems: History of anesthetic complications: No Sleep Apnea Risk: No Malignant Hyperthermia: No GERD: No Poor Exercise Tolerance: No Recent Chest Pain: No Shortness of Breath: No AICD/Pacemaker: No Renal Disease: No Diagnostic Tests: Lab(s) reviewed: Yes (11/14/2024). Other Findings: No imaging available Start of PAT Evaluation: - if patient taking RICKEY-I or ARB or Entresto then hold ONLY AM dose on DOS unless severe CHF or poorly controlled HTN This evaluation was based on PAT clinic visit Wt Readings from Last 3 Encounters: 11/14/24 83 kg (183 lb) 11/14/24 82.1 kg (181 lb) Temp Readings from Last 3 Encounters: 11/14/24 97.9 ??F (36.6 ??C) (Oral) BP Readings from Last 3 Encounters: 11/14/24 118/91 11/14/24 129/83 Pulse Readings from Last 3 Encounters: 11/14/24 73 11/14/24 84 Past Medical History: Diagnosis Date Diverticulosis Hyperparathyroidism (HCC) Kidney stones Past Surgical History: Procedure Laterality Date Hysterectomy Tonsillectomy and Adenoidectomy I. Perioperative Cardiac Risk Index 1 (STEPHANIE 2a) 1. Is the Surgical Procedure High-Risk? NO 2. History of Ischemic Heart Disease? NO If yes then paste summary of most recent cath / stress tests results here 3. History of CHF? no If yes then paste summary of most recent TTE / SHON results here: 4. History of Cerebro VD? Prior TIA or stroke no If yes then paste summary of most any relevant neurovascular imaging or carotid duplex results here: 5. Insulin-Dependent Diabetes? no No results for input(s): HGBA1C , A1C , [id number] , EAG inthe last 21760 hours. Insulin pump? no if yes then patient was instructed to continue at 75% basal rate on DOS, AND 1164 placed? no If insulin pump then need to document insulin type unknown If insulin type is not known then pump MUST be turned off for DOS 6. Preoperative Creatinine > 2 mg/dl? no Recent Labs Component Name 11/14/24 1601 POTASSIUM 4.0 CO2 26 BUN 16 CREATININE 1.03* EGFR 62* GLUCOSE 86 CALCIUM 10.9* Recent Labs Component Name 11/14/24 1601 WBC 10.0 HGB 14.4 HCT 43.5 PLTCOUNT 363 RCRI >= 1? no Functional capacity > 4 METS? (2 sets of stairs or 4 blocks)? yes If RCRI >= 1 AND non low-risk surgery (eg cataracts, endo) then MACE score = >= 1% and may need further workup (eg BNP, hsT, stress TTE) if METS < 4 or unknown1 (STEPHANIE 2a) If RCRI >= 1 without active cardiac symptoms AND low risk surgery then no further w/u needed 0 indicators = >0.4 % MACE 3,4 II. Consults and follow up: NO Copy and paste relevant results and follow ups III. CIEDs: Does patient have a CIED (cardiovascular implantable electronic device eg: PM, AICD)? no Call [phone] or discuss with PAT staff all patients with CIEDs: [place] Information needed (neon sign mechanic, mode, indication for CIED, battery life): IV. Most recent EKG (within 6 mo if elevated risk or new sx) 2 No results found for this or any previous visit. V. Anticoagulants: Are they receiving antiplatelet/anticoagulant medications (besides ASA)? What isthe periop plan? NO For patients scheduled for epidurals (eg HIPEC) - hold Xa antagonists for no less than 72 hrs No results for input(s): APT , INR , PTT in the last 95060 hours.6 . Previous blood transfusion? no If HLA antibodies present then update problem list with #R76.9 and specify under comments which antibodies, and discuss w/ staff Recent Labs Component Name 11/14/24 1601 ABORH O POS ABSCG NEG VII. ASHLEY score 1 (STEPHANIE 2a) Total ASHLEY Risk Score: 2 If >=5 and patient wishes for sleep study referral then complete order set ref99 and add patient to CPAP folder VIII. Known or suspected difficult airway no If yes only then complete previous airway management section above IX. Frailty screen:1 (STEPHANIE 2a) No data recorded X. Suboxone (Buprenorphine / Naloxone) therapy? Dose? N/A XI. Aprepitant ordered (from [facility] outpatient pharmacy) and pt will take 40 mg po 2-3 before surgeryAND pateint counseld to to use backup contraception for 1 month? no XII GLP-1 Agonists5 No XIII. Home meds Current Outpatient Medications on File Prior to Encounter Medication Sig Dispense Refill vitamin D, cholecalciferol, 50 MCG (1999 UT) tablet Take 1 (one) tablet by mouth once daily No current facility-administered medications on file prior to encounter. XIV. Allergies - if allergy to Aplha-Gal medications and or severe Sulfa allergy then please discuss with staff No Known Allergies XV. Additional testing needed within 3 months prior to DOS (if possible, else on DOS) - CBC w/o diff if ASA >= 3 OR expected blood loss >250 OR previously abnormal - BMP if ASA >= 3 AND non low- risk procedure / previously abnormal - CMP (instead of BMP) for patient with chronic liver disease or previously abnormal Recent Labs Component Name 11/14/24 1601 WBC 10.0 HGB 14.4 HCT 43.5 PLTCOUNT 363 Additional orders needed on DOS : - Anesthesia preop order set [id number] AND Ad hoc orders (at bottom oforder set) as below: - EPOC whole blood K+ for patient with ESRD or poorly controlled K+ - Urine test when applicable (order # [id number] for POC) - check Body Temperature regulation - Tylenol 1000 mg po (hold for endoscopies and h/o cirrhosis, alpha-gall allergy) Choose Options --> Phase of care --> choose correct procedure -> preop --> sign and hold XV. XV. Labs ordered today and needing review ? (if possible else DOS) :CBC, BMP, and T&S Labs ordered for DOS (eg POC glucose, whole blood K for ESRD, hCG, etc T&S Summary: Ignacia Núñez is a 59 year old female presenting for parathyroidectomy. They have an ASA score of 2 and are at low risk (RCRI <1) AND presenting for low risk surgery with an MACE score of 0 indicators = >0.4 % MACE Follow up results - have ALL the above ordered labs and vital signs been reviewed? YES - with the following notable abnormalities ca 10.9, generating station mechanic 1.03 They ARE OPTIMIZED - PAT EVALUATION COMPLETE Troy Ohara APRN-ARMANDO 11/14/2024 5:03 PM for this procedure. Vital signs updated in chart AND right click to make editable (so as not to autodelete upon discharge from [facility]? yes Preoperative plan was not discussed w/ PAT attending. If not please specify why. Refs: 2023 AHA/ACC/ACS/ASNC/HRS/SCA/SCCT/SCMR/SVM Guideline for Perioperative Cardiovascular Management for Noncardiac Surgery 2. Practice Advisory for Preanesthesia Evaluation. 2012. Anesthesiology V 116, No 3. 3. [place] Cardiovascular Society Guidelines on Perioperative Cardiac Risk Assessment and Management for Patients Who Undergo Noncardiac Surgery Radha Stewart et al. Greek Journal of Cardiology, Volume 33, Issue 1, 2017. 4. Yaw SUTTON. 2014 ACC/AHA guideline on perioperative cardiovascular evaluation and management ofpatients undergoing noncardiac surgery: executive summary: a report of the [place] College of Cardiology/[place] Heart Association Task Force on Practice Guidelines. Circulation. 2014 Aug 20;130(24): 2215-76. 5. Juanita Quiroz, Chinedu Billy, Vicky Fregoso, Cliff Novak; Perioperative Management of Patients Taking Glucagon-like Peptide-1 Receptor Agonists: Applying Evidence to ClinicalPractice. Anesthesiology 2023; 141:3803-1968 End of PAT Evaluation: ANESTHESIA PLAN ASA Score: 2 BMI, Height, Weight Tobacco History Estimated body mass index is 32.42 kg/m?? as calculated from the following: Height as of this encounter: 1.6 m (5' 3 ). Weight as of this encounter: 83 kg (183 lb). Social History Tobacco Use Smoking Status Never Smokeless Tobacco Never Alcohol History Drug History Social History Substance and Sexual Activity Alcohol Use Yes Comment: 1 A MONTH Social History Substance and Sexual Activity Drug Use Never Outpatient Medications: Inpatient Medications: Outpatient Medications Marked as Taking for the 11/14/24 encounter (Hospital Encounter) with [facility] PAT ROOM 1 Medication Sig Last Dose vitamin D (cholecalciferol) Take 1 (one) tablet by mouth once daily 11/13/2024 No current facility-administered medications for this encounter. Allergies: No Known Allergies Relevant Problems Problem List: There are no problems to display for this patient. Medical History: Past Medical History: Diagnosis Date Diverticulosis Hyperparathyroidism (HCC) Kidney stones Surgical History: Past Surgical History: Procedure Laterality Date Hysterectomy Tonsillectomy and Adenoidectomy SOLE SPLITTER Status: No LMP recorded. unknown OB History No obstetric history on file. Covid Vaccine: Lab Results: Recent Labs Component Name 11/14/24 1601 WBC 10.0 RBC 5.14 HCT 43.5 HGB 14.4 PLTCOUNT 363 MCV 84.6 MCH 28.0 MCHC 33.1 MPV 10.1 Recent Labs Component Name 11/14/24 1601 ABORH O POS ABSCG NEG Recent Labs Component Name 11/14/24 1601 POTASSIUM 4.0 CALCIUM 10.9* CO2 26 GLUCOSE 86 BUN 16 CREATININE 1.03* No results found for requested labs within last 120 days. Recent Labs Result Component Current Result Anion Gap 6 (11/14/2024) eGFR by CKD-EPI 62 (L) (11/14/2024) E COORDINATOR documented in this encounter Plan of Treatment Not on file documented as of this encounter Visit Diagnoses Not on filedocumented in this encounter
--- OUTSIDE RECORDS SUMMARY | 2024-11-15 14:05 | XMS_ITS | Encounter Summary ---
Author Organization [facility] Address [facility] [place] [address] Care Team Providers Care Bilingual Speech Language Pathologist Name Role Phone Unavailable Primary Care Provider Unavailabl e Encounter Details Date Type Department Care Team (Latest Contact Info) Description 11/14/2024 Travel Social History Tobacco Use Types Packs/Day Years Used Date Smoking Tobacco: Never Smokeless Tobacco: Never Alcohol Use Standard Drinks/Week Comments Yes 0 (1 standard drink = 0.6 oz pur e alcohol) 1 A MONTH Sex and Gender Information Value Date Recorded Sex Assigned at Not on file Gender Identity Not on file Sexual Orientation Not on file documented as of this encounter Plan of Treatment Not on file documented as of this encounter Visit Diagnoses Not on filedocumented in this encounter
--- OUTSIDE RECORDS SUMMARY | 2024-11-15 14:05 | XMS_ITS | Encounter Summary ---
Author Organization [facility] Address [address] [facility] [place] [address] Care Team Providers Care Human Resources Consultant Name Role Phone Unavailable Primary Care Provider Unavailabl e Encounter Details Date Type Department Care Team (Latest Contact Info) Description 11/14/2024 3:54 PM SUPERVISOR BEATER ROOM - 11/14/2024 11:59 PM SUPERVISOR BEATER ROOM Hospital Encounter [facility] OP DRAW STATION [address] [place] [id number] Hussain Colvin MD [address] [facility] 2[address] [place] [address] Discharge Disposition: Home or Self Care Social History Tobacco Use Types Packs/Day Years Used Date Smoking Tobacco: Never Smokeless Tobacco: Never Alcohol Use Standard Drinks/Week Comments Yes 0 (1 standard drink = 0.6 oz pur e alcohol) 1 A MONTH Sex and Gender Information Value Date Recorded Sex Assigned at Not on file Gender Identity Not on file Sexual Orientation Not on file documented as of this encounter Medications at Time of Discharge Medication Sig Dispensed Refills Start Date End Date vitamin D, cholecalciferol, 50 MCG (1999) tablet Take 1 (one) tablet by mouth once daily documented as of this encounter Plan of Treatment Not on file documented as of this encounter Visit Diagnoses Not on filedocumented in this encounter
--- OUTSIDE RECORDS SUMMARY | 2024-11-15 14:05 | XMS_ITS | Encounter Summary ---
Author Organization [facility] Address [address] [place] [address] Care Team Providers Care Cook Fast Food Name Role Phone Unavailable Primary Care Provider Unavailabl e Encounter Details Date Type Department Care Team (Latest Contact Info) Description 11/14/2024 2:30 PM PACKING MACHINE FEEDER - 11/14/2024 3:53 PM PACKING MACHINE FEEDER Hospital Encounter [facility] [address] [place] [address] Hussain Colvin MD [address] [place] [address] Otolaryngology Discharge Disposition: Home or Self Care Anesthesia Record Procedure Summary Procedure Name Responsible [...] Comments Blood Pressure 118/91 11/14/2024 3:50 PM PACKING MACHINE FEEDER Pulse 73 11/14/2024 3:50 PM PACKING MACHINE FEEDER Temperature 36.6 C (97.9 F) 11/14/2024 3:50 PM PACKING MACHINE FEEDER Respiratory Rate 18 11/14/2024 3:50 PM PACKING MACHINE FEEDER Oxygen Saturation 100% 11/14/2024 3:50 PM PACKING MACHINE FEEDER Inhaled Oxygen Concentration - - Weight 83 kg (183 lb) 11/14/2024 3:50 PM PACKING MACHINE FEEDER Height 160 cm (5' 3 ) 11/14/2024 3:50 PM PACKING MACHINE FEEDER Body Mass Index 32.42 11/14/2024 3:50 PM PACKING MACHINE FEEDER documented in this encounter Discharge Instructions * Patient Instructions* Tanna Linton RN - 11/14/2024 3:48 PM PACKING MACHINE FEEDER DOS= Day of Surgery vitamin D (cholecalciferol) 50 MCG (1999) tablet Instructions: Take 1 (one) tablet by mouth once daily HOLD DOS ING MACHINE FEEDER * Discharge Instr - Supplementary Instructions* Tanna Linton RN - 11/14/2024 3:48 PM PACKING MACHINE FEEDER *Not following the instructions below may result in your surgery being cancelled or delayed.* DO NOT eat any SOLID food after midnight the night before surgery including gum, cough drops, candy. Unless you have been diagnosed with gastroparesis or delayed stomach emptying, you may have CLEAR LIQUIDS until your arrival at the hospital/at least 2 hours before surgery (examples include any non-dairy and non-pulp containing fruit juices, Gatorade, clear soda such as Sprite or 7-Up (No nabeel orroot beer), fruit flavored carbonated beverages, coffee or tea (no cream, milk or sugar), fat-free broth). This does NOT include alcoholic beverages. The physician's office will contact you with the arrival time for your surgery. Same Day Surgery isnot open until 5:30 am, please do not arrive before this time. Bring a list of your medications with the name, dosage and last time taken, If you use an inhaler, CPAP or home oxygen, please bring it with you day of surgery Do not shower the morning or surgery nor apply any lotion, cream, deodorant or makeup the morning of surgery. Do not wear nail ghanaian, body piercings or contact lenses. Do not use any recreational drugs 72 hours prior to surgery Leave all valuables at home such as jewelry and large amounts of money as we have no way to secure them. You cannot drive yourself home after surgery, take any form of public transportation or use Uber, Lyft or a Taxi. Children Under 14 are not allowed in the ACU and cannot be left unattended. DO NOT TAKE the following medications the day of surgery: Vit D Any vitamins or supplements DIRECTIONS: Address: [address] [place] [address] Parking Garage: Please park on the ORANGE side of the garage, take the ORANGE elevators to the 1st floor. [facility] located at the end of the hallway. Special Education Classroom Aide/Drop Off: Enter through the main entrance and take a right. You will walk down a hallway ending in a ???T?? junction with a large TV on the wall. Make a left at the ???T?? junction. [facility]. Please call with any questions relating to anesthesia for surgery. Pre-Admissions Testing [phone] ING MACHINE FEEDER documented in this encounter Medications at Time of Discharge Medication Sig Dispensed Refills Start Date End Date vitamin D, cholecalciferol, 50 MCG (1999) tablet Take 1 (one) tablet by mouth once daily documented as of this encounter Plan of Treatment Not on file documented as of this encounter Procedures Procedure Name Priority Date/Time Associated Diagnosis Comments TYPE + SCREEN PANEL STAT 11/14/2024 4 :01 PM PACKING MACHINE FEEDER Pre-op evaluation CBC W/O DIFFERENTIAL STAT 11/14/2024 4:01 PM PACKING MACHINE FEEDER Pre-op evaluation BASIC METABOLIC PANEL (CALCIUM TOTAL) STAT 11/14/2024 4:01 PM PACKING MACHINE FEEDER Pre-op evaluation documented in this encounter Results * TYPE + SCREEN PANEL (11/14/2024 4:01 PM PACKING MACHINE FEEDER) Antibody Screen NEG 4:57 PM PACKING MACHINE FEEDER [facility] LAB ABO Rh O POS 11/14/2024 4:57 PM [facility] LAB Blood Bank BLOOD SPECIMEN / Unknown Lab Venipuncture / Unknown 11/14/2024 4:01 PM PACKING MACHINE FEEDER 11/14/2024 4:11 PM PACKING MACHINE FEEDER Troy Ohara STONE POLISHER MACHINE-OVERHEAD LINE WORKER LAB - BLOOD B ANK ORDERABLES [facility] [address] [place] [address], [facility] [phone] * (ABNORMAL) BASIC METABOLIC PANEL (CALCIUM TOTAL) (11/14/2024 4:01 PM PACKING MACHINE FEEDER) BUN 16 7 - 26 mg/dL 11/14/2024 [...] Lab Venipuncture / Unknown 11/14/2024 4:01 PM PACKING MACHINE FEEDER 11/14/2024 4:07 PM PACKING MACHINE FEEDER Troy Ohara APRN-ARMANDO LAB - [facility] RY ORDERABLES [facility] [address] [place] [address], [facility] [phone] * CBC W/O DIFFERENTIAL (11/14/2024 4:01 PM PACKING MACHINE FEEDER) Pathologist [facility] WBC 10.0 4.0 - 10.7 x10E9/L 11/14/2024 [...] Lab Venipuncture / Unknown 11/14/2024 4:01 PM PACKING MACHINE FEEDER 11/14/2024 4:07 PM PACKING MACHINE FEEDER Troy Ohara APRN-OVERHEAD LINE WORKER LAB - HEMATOL OGY ORDERABLES [facility] [address] [place] [address], [facility] [phone] documented in this encounter Visit Diagnoses Diagnosis Pre-op evaluation- Primary Preoperative examination, unspecified documented in this encounter
== END 2024-11-15 12:50 | disposition home or self-care (01) ==
LOC: ANHIMG 12:51
PROVIDERS: PCP Nurse Practitioner; Visit Provider Internal Medicine Endocrinology, Diabetes & Metabolism
DX: E21.3 Hyperparathyroidism, unspecified (principal); Z78.0 Asymptomatic menopausal state
CPT/HCPCS: 77080

== ENCOUNTER 2025-01-14 11:10 | Outpatient (CLI) | payer BC, SELFPAY ==
--- NOTE | ~2025-01-14 | XR_ITS ---
Right Knee Technique: AP, lateral, and sunrise views were obtained. Clinical History: Pain Findings: No fracture or dislocation is seen. Osseous alignment is anatomic. Joint spaces are preserv ed with minimal degenerative spurring. Soft tissues are unremarkable. No joint effusion is seen. Impression: Minimal degenerative spurring. Reviewed, dictated and finalized at location . Impression: Minimal degenerative spurring.
--- NOTE | ~2025-01-14 | XR_ITS ---
Lumbosacral Spine: AP and lateral views Clinical History: Pain Findings: The normal lordotic curve is maintained. The vertebral bodies and posterior elements are i ntact. Mild degenerative changes are present. There is extensive facet arthropathy throughout the lum bar spine. The sacroiliac joints are normally outlined. Impression: Extensive facet arthropathy, as noted above. Reviewed, dictated and finalized at location . Impression: Extensive facet arthropathy, as noted above.
== END 2025-01-14 11:11 | disposition home or self-care (01) ==
LOC: GOSHIMG 11:11
PROVIDERS: PCP Nurse Practitioner; Visit Provider Nurse Practitioner
DX: M47.817 Spondylosis without myelopathy or radiculopathy, lumbosacral region (principal); M25.561 Pain in right knee
CPT/HCPCS: 72100; 73562